=== PATIENT | female | born 2000 | race Caucasian/White ===

== ENCOUNTER 2020-03-02 06:11 | Emergency (ER) | payer OTHER ==
[~2020-03-02] VITALS: Ht 162.6 cm; Wt 70.9 kg
[2020-03-02] MEDS ORDERED: IBUPROFEN 800 MG TAB PO ONE (08:15)
[2020-03-02 08:32] VITALS: BP 124/89
== END 2020-03-02 09:04 | disposition home or self-care (01) ==
LOC: M ED 06:11
DX: M25.511 Pain in right shoulder (principal); M25.571 Pain in right ankle and joints of right foot; M79.601 Pain in right arm

== ENCOUNTER 2020-04-24 07:34 | Emergency (ER) | payer OTHER ==
[~2020-04-24] VITALS: Ht 162.6 cm; Wt 77.2 kg
[2020-04-24] MEDS ORDERED: SUCRALFATE SUSP 1GM/10ML UD PO ONE (08:00)
[2020-04-24] MEDS ORDERED: PANTOPRAZOLE 40MG VIAL (C9113 PER 1) IV ONE (08:00)
[2020-04-24] MEDS ORDERED: NS 1,000 ML IV ONE (08:00)
[2020-04-24] MEDS ORDERED: METOCLOPRAMIDE INJ 10MG/2ML VIAL (J2765 PER 1) IV ONE (08:00)
[2020-04-24 08:55] LABS: BASO % 0.2 % (0.0-1.0); EOS # 0.1 10^3/uL (0.0-0.5); EOS % 0.6 % (0.0-3.0); HEMATOCRIT 40.5 % (36.0-47.0); HEMOGLOBIN 12.9 g/dl (12.0-15.5); LYMPH # 2.6 10^3/uL (1.5-5.0); LYMPH % 31.7 % (24.0-44.0); MEAN CORPUSCULAR HEMOGLOBIN 28.2 pg (27.0-33.0); MEAN CORPUSCULAR HGB CONC 31.9 g/dl (32.0-36.5); MEAN CORPUSCULAR VOLUME 88.4 fl (80.0-96.0); MONO # 0.7 10^3/uL (0.0-0.8); MONO % 8.5 % (0.0-5.0); NEUTROPHILS # 4.8 10^3/uL (1.5-8.5); NEUTROPHILS % 58.8 % (36.0-66.0); PLATELET COUNT, AUTOMATED 257 10^3/uL (150-450); RED BLOOD COUNT 4.58 10^6/uL (4.00-5.40); WHITE BLOOD COUNT 8.2 10^3/uL (4.0-10.0)
[2020-04-24 09:27] LABS: ALBUMIN 3.2 GM/DL (3.2-5.2); ALT/SGPT 18 U/L (12-78); BILIRUBIN,TOTAL 0.3 MG/DL (0.2-1.0); BLOOD UREA NITROGEN 13 MG/DL (7-18); CALCIUM LEVEL 8.5 MG/DL (8.5-10.1); CARBON DIOXIDE LEVEL 27 MEQ/L (21-32); CHLORIDE LEVEL 109 MEQ/L (98-107); CREATININE FOR GFR 0.74 MG/DL (0.55-1.30); GLOMERULAR FILTRATION RATE > 60.0 (>60); GLUCOSE, FASTING 80 MG/DL (70-100); LIPASE 166 U/L (73-393); POTASSIUM SERUM 4.8 MEQ/L (3.5-5.1); SODIUM LEVEL 141 MEQ/L (136-145); TOTAL PROTEIN 6.7 GM/DL (6.4-8.2)
[2020-04-24 10:36] LABS: HCG, SERUM QUALITATIVE POSITIVE (NEGATIVE)
[2020-04-24] MEDS ORDERED: ONDA4TAB6 PO (10:58)
[2020-04-24 11:15] LABS: HCG, SERUM QUANTITATIVE 31 MIU/ML
[2020-04-24 11:18] VITALS: BP 129/69
== END 2020-04-24 11:19 | disposition home or self-care (01) ==
LOC: M ED 07:34
DX: O21.9 Vomiting of pregnancy, unspecified (principal); Z3A.00 Weeks of gestation of pregnancy not specified; Z91.048 Other nonmedicinal substance allergy status; Z91.013 Allergy to seafood
CPT/HCPCS: 36415; 80053; 83690; 84702; 84703; 85025; 96374; 96375; 99284; C9113; J2765

== ENCOUNTER 2020-05-18 09:15 | Emergency (ER) | payer OTHER ==
[~2020-05-18 09:15] MED LIST: ONDA4TAB6 PO
[2020-07-03 10:02] LABS: AMORPHOUS SEDIMENT SMALL (NEGATIVE); APPEARANCE, URINE HAZY (CLEAR); BACTERIA, URINE AUTO 1+ (NEGATIVE); BILIRUBIN, URINE AUTO NEGATIVE (NEGATIVE); BLOOD, URINE BLOOD NEGATIVE (NEGATIVE); COLOR, URINE YELLOW (YELLOW); GLUCOSE, URINE (UA) AUTO NEGATIVE (NEGATIVE); KETONE, URINE AUTO NEGATIVE (NEGATIVE); LEUKOCYTE ESTERASE, URINE AUTO 3+ (NEGATIVE); MUCUS, URINE SMALL (NEGATIVE); NITRITE, URINE AUTO NEGATIVE (NEGATIVE); PROTEIN, URINE AUTO NEGATIVE (NEGATIVE); RBC, URINE AUTO 2 /HPF (0-3); SPECIFIC GRAVITY URINE AUTO 1.026 (1.002-1.035); SQUAMOUS EPITHELIAL CELL UR AU 6 /HPF (0-6); UROBILINOGEN, URINE AUTO 0.2 mg/dL (0.0-2.0); WBC, URINE AUTO 2 /HPF (0-3)
== END 2020-05-18 11:25 | disposition home or self-care (01) ==
LOC: M ED 09:15
DX: O26.891 Other specified pregnancy related conditions, first trimester (principal); N83.11 Corpus luteum cyst of right ovary; Z91.013 Allergy to seafood; Z79.899 Other long term (current) drug therapy; Z3A.01 Less than 8 weeks gestation of pregnancy

== ENCOUNTER → 2020-07-21 | Outpatient (CLI) | payer OTHER ==
[2020-07-23 17:07] LABS: F003-IGE CODFISH <0.10 kU/L (Class 0); F023-IGE CRAB <0.10 kU/L (Class 0); F024-IGE SHRIMP <0.10 kU/L (Class 0); F040-IGE TUNA <0.10 kU/L (Class 0); F207-IGE CLAM <0.10 kU/L (Class 0); F303-IGE HALIBUT <0.10 kU/L (Class 0)
== END ==
LOC: M LAB 14:09
PROVIDERS: ATTEND Nurse Practitioner Family
DX: Z13.89 Encounter for screening for other disorder (principal)

== ENCOUNTER → 2020-08-13 | Outpatient (CLI) | payer OTHER ==
--- NOTE | 2020-08-13 13:58 | REP ---
INDICATION: PREG LEVEL II ANATOMY MAIN REG. COMPARISON: 05/18/2020. TECHNIQUE: Real-time sonographic evaluation of the gravid uterus performed. FINDINGS: Estimated gestational age is19 weeks 3 days, EDC 01/04/2021. Today's measurements indicate appropriate growth. Presentation: Footling breech Placenta posterior, grade 1, without evidence of placenta previa. heart rate is recorded at 156 beats per minute. Amniotic fluid is subjectively normal. Closed cervical length is measured at 4.5 cm. Biometry chart: BPD: 42 mm, 18 weeks 6 days, 35th percentile. HC: 162 mm, 19 weeks 0 days, 38th percentile AC: 137 mm, 19 weeks in 1 days, 44th percentile Femur length: 31 mm, 19 weeks 4 days, 54th percentile HC to AC ratio: 1.18, normal range 1.06-1.25. Estimated weight: 284g. anatomy: Cranium: Grossly normal Lateral Ventricles/Choroid Plexus: Grossly normal Posterior Fossa/Cerebellum: Grossly normal Nose/lips/profile: Not well visualized. Four chamber heart: Not well visualized. Right ventricular outflow tract: Not well visualized. Left ventricular outflow tract: Not well visualized. Left-sided stomach: Grossly normal Kidneys: Grossly normal Bladder: Grossly normal Cord Insertion: Grossly normal 3 vessel cord: Grossly normal Spine: Grossly normal IMPRESSION: Viable single intrauterine gestation as above. <Electronically signed by Alfa Ogden > 08/13/20 [id number]
== END ==
LOC: M RAD 10:24
PROVIDERS: ATTEND Obstetrics & Gynecology
DX: Z34.82 Encounter for supervision of other normal pregnancy, second trimester (principal)

== ENCOUNTER 2020-09-07 17:17 | Emergency (ER) | payer OTHER ==
[~2020-09-07] VITALS: Ht 162.6 cm; Wt 78.0 kg
[2020-09-07] MEDS ORDERED: PRENMIS3 PO (17:26)
--- NOTE | 2020-09-07 18:35 | REP ---
INDICATION: inversion yesterday, pain lateral, preg pls shield COMPARISON: None. TECHNIQUE: AP, lateral views of the left ankle FINDINGS: Mild swelling suggested. No acute fracture or dislocation. Ankle mortise intact. IMPRESSION: Mild swelling. No acute fracture or dislocation. <Electronically signed by Mo Salazar > 09/07/20 [id number]
[2020-09-07 18:44] VITALS: BP 130/68
== END 2020-09-07 18:50 | disposition home or self-care (01) ==
LOC: M ED 17:17
DX: O9A.219 Injury, poisoning and certain other consequences of external causes complicating pregnancy, unspecified trimester (principal); S93.402A Sprain of unspecified ligament of left ankle, initial encounter; X50.0XXA Overexertion from strenuous movement or load, initial encounter; Y92.019 Unspecified place in single-family (private) house as the place of occurrence of the external cause; Y93.9 Activity, unspecified; Y99.9 Unspecified external cause status; Z3A.00 Weeks of gestation of pregnancy not specified; Z91.013 Allergy to seafood; Z79.899 Other long term (current) drug therapy

== ENCOUNTER → 2020-09-09 | Outpatient (CLI) | payer OTHER ==
[~2020-09-09] MED LIST changes: +PRENMIS3 PO
--- NOTE | 2020-09-11 07:10 | REP ---
INDICATION: F/U ANATOMY COMPARISON: 08/13/2020 TECHNIQUE: Transabdominal obstetrical ultrasound with color Doppler evaluation. FINDINGS: Examination demonstrates a single live intrauterine in cephalic presentation. motion is identified by technologist. Placenta is noted posterior and grade 1 without evidence for placenta previa or abruption. Amniotic fluid volume is normal. Cervix measures 4.3 cm in length and appears closed.. Gestational age by LMP 23 weeks 2 days with DALTON 01/04/2021. Gestational age by current measurements 23 weeks 5 days with DALTON 01/01/2021. FHR equals 152 beats per minute. Estimated weight 611 grams (53rdpercentile). Anatomical assessment demonstrates normal structures including cranium, choroid plexus, cavum, cerebellum/posterior fossa, facial features, lungs, four-chamber heart/ventricular outflow tracts, diaphragm, stomach, cord insertion/three-vessel cord, kidneys/bladder, spine, and extremities. IMPRESSION: Single live intrauterine in cephalic presentation demonstrating appropriate estimated weight and growth. Anatomical assessment is complete and normal. <Electronically signed by Mo Salazar > 09/11/20 [id number]
== END ==
LOC: M RAD 11:38
PROVIDERS: ATTEND Obstetrics & Gynecology
DX: Z34.82 Encounter for supervision of other normal pregnancy, second trimester (principal)

== ENCOUNTER → 2020-10-06 | Outpatient (REF) | payer OTHER ==
[2020-10-06 17:34] LABS: BASO % 0.2 % (0.0-1.0); EOS # 0.1 10^3/uL (0.0-0.5); EOS % 0.4 % (0.0-3.0); HEMATOCRIT 36.9 % (36.0-47.0); HEMOGLOBIN 11.5 g/dl (12.0-15.5); LYMPH # 2.3 10^3/uL (1.5-5.0); LYMPH % 17.2 % (24.0-44.0); MEAN CORPUSCULAR HEMOGLOBIN 29.4 pg (27.0-33.0); MEAN CORPUSCULAR HGB CONC 31.2 g/dl (32.0-36.5); MEAN CORPUSCULAR VOLUME 94.4 fl (80.0-96.0); MONO % 7.3 % (0.0-5.0); NEUTROPHILS # 9.9 10^3/uL (1.5-8.5); NEUTROPHILS % 74.2 % (36.0-66.0); PLATELET COUNT, AUTOMATED 236 10^3/uL (150-450); RED BLOOD COUNT 3.91 10^6/uL (4.00-5.40); WHITE BLOOD COUNT 13.3 10^3/uL (4.0-10.0)
[2020-10-06 18:08] LABS: ALBUMIN 2.5 GM/DL (3.2-5.2); ALT/SGPT 12 U/L (12-78); BILIRUBIN,TOTAL 0.3 MG/DL (0.2-1.0); BLOOD UREA NITROGEN 7 MG/DL (7-18); CALCIUM LEVEL 8.6 MG/DL (8.5-10.1); CARBON DIOXIDE LEVEL 27 MEQ/L (21-32); CHLORIDE LEVEL 106 MEQ/L (98-107); CREATININE FOR GFR 0.57 MG/DL (0.55-1.30); GLOMERULAR FILTRATION RATE > 60.0 (>60); GLUCOSE, FASTING 104 MG/DL (70-100); POTASSIUM SERUM 4.1 MEQ/L (3.5-5.1); SODIUM LEVEL 139 MEQ/L (136-145); THYROID STIMULATING HORMONE 0.921 uIU/ML (0.358-3.740); TOTAL PROTEIN 6.3 GM/DL (6.4-8.2)
== END ==
LOC: M LAB REF 16:36
PROVIDERS: ATTEND Physician Assistant
DX: R42 Dizziness and giddiness (principal)

== ENCOUNTER → 2020-10-14 | Outpatient (CLI) | payer OTHER ==
[2020-10-14 11:06] LABS: HEMATOCRIT 36.7 % (36.0-47.0); HEMOGLOBIN 11.7 g/dl (12.0-15.5); MEAN CORPUSCULAR HEMOGLOBIN 30.1 pg (27.0-33.0); MEAN CORPUSCULAR HGB CONC 31.9 g/dl (32.0-36.5); MEAN CORPUSCULAR VOLUME 94.3 fl (80.0-96.0); PLATELET COUNT, AUTOMATED 221 10^3/uL (150-450); RED BLOOD COUNT 3.89 10^6/uL (4.00-5.40)
== END ==
LOC: M LAB 09:13
PROVIDERS: ATTEND Obstetrics & Gynecology
DX: Z34.82 Encounter for supervision of other normal pregnancy, second trimester (principal); Z3A.00 Weeks of gestation of pregnancy not specified

== ENCOUNTER → 2020-10-21 | Outpatient (REF) | payer OTHER ==
[2020-10-21 17:46] LABS: BASO % 0.2 % (0.0-1.0); EOS # 0.1 10^3/uL (0.0-0.5); EOS % 0.4 % (0.0-3.0); HEMATOCRIT 36.1 % (36.0-47.0); HEMOGLOBIN 11.7 g/dl (12.0-15.5); LYMPH # 2.5 10^3/uL (1.5-5.0); LYMPH % 17.1 % (24.0-44.0); MEAN CORPUSCULAR HEMOGLOBIN 30.5 pg (27.0-33.0); MEAN CORPUSCULAR HGB CONC 32.4 g/dl (32.0-36.5); MONO # 1.2 10^3/uL (0.0-0.8); MONO % 8.4 % (0.0-5.0); NEUTROPHILS # 10.7 10^3/uL (1.5-8.5); NEUTROPHILS % 72.9 % (36.0-66.0); PLATELET COUNT, AUTOMATED 225 10^3/uL (150-450); RED BLOOD COUNT 3.84 10^6/uL (4.00-5.40); WHITE BLOOD COUNT 14.7 10^3/uL (4.0-10.0)
[2020-10-21 18:10] LABS: PERCENT SATURATION 21.1 % (13.2-45.0)
== END ==
LOC: M LAB REF 16:22
PROVIDERS: ATTEND Physician Assistant
DX: D64.9 Anemia, unspecified (principal)

== ENCOUNTER 2020-11-08 10:01 | Emergency (ER) | payer OTHER ==
[~2020-11-08] VITALS: Ht 162.6 cm; Wt 86.4 kg
[2020-11-08 10:02] VITALS: BP 130/59
--- OUTSIDE RECORDS SUMMARY | 2020-11-08 10:08 | CCD ---
Author Organization Unknown Address [address] [place] [address] Phone [phone] Care Team Providers Care Apartment Hotel Manager Name Role Phone [facility] 110 [phone] Allergies Code Code System Name Reaction Severity Status Onset Fish Containing Products Active Shellfish Derived Active Medications Name Status Start Date Stop Date paroxetine 20 mg tablet Completed 08/25/20 20 Vitamins Active Not available Vitamin B-6 25 mg tablet Completed 020 Problems Name Status Onset Date Source Depressive Disorder Active 08/25/2020 Allergic Rhinitis Active 08/25/2020 Procedures Notes: Removal of cyst from L breast () Results Lab Results Date Name Specimen Result Interpretation Description Value Range Status Address 10/06/2020 CMP, Serum or Plasma High Glucose, Fastin g 104 mg/dL 70-100 mg/dL [facility]: 83 0 [facility] Normal Blood Urea Nitrogen 7 mg/dL 7-18 mg/ dL [facility]: 830 [facility] Normal Creatinine for GFR 0.57 mg/dL 0.55-1 .30 mg/dL [facility]: 830 [facility] Normal Glomerular Filtration Rate > 60.0 >6 0 [facility]: 830 [facility] Normal Sodium Level 139 mEq/L 136-145 mEq/L [facility]: 830 [facility] Normal Potassium Serum 4.1 mEq/L 3.5-5.1 mE q/L [facility]: 830 [facility] Normal Chloride Level 106 mEq/L 98-107 mEq/ L [facility]: 830 [facility] Normal Carbon Dioxide Level 27 mEq/L 21-32 mEq/L [facility]: 830 [facility] Low Anion Gap 6 mEq/L 8-16 mEq/L [facility]: 830 [facility] Normal Calcium Level 8.6 mg/dL 8.5-10.1 mg/ dL [facility]: 0 [facility] Low AST/SGOT 4 U/L 7-37 U/L [facility]: 830 [facility] Normal ALT/SGPT 12 U/L 12-78 U/L [facility]: 830 [facility] Normal Alkaline Phosphatase 76 U/L 45-117 U /L [facility]: 830 [facility] Normal Bilirubin,total 0.3 mg/dL 0.2-1.0 mg /dL [facility]: [address] [place] [address] Low Total Protein 6.3 gm/dL 6.4-8.2 gm/d L [facility]: [address] [place] [address] Low Albumin 2.5 gm/dL 3.2-5.2 gm/dL [facility] 0 [facility] Low Albumin/globulin Ratio 0.7 1.2-2. 2 [facility]: 0 [facility] 10/06/2020 TSH, Serum or Plasma Normal Thyroid Stimulating Hormone 0.921 uIU/mL 0.358-3.740 uIU/mL [facility] nter: 830 [facility] Past Encounters 10/13/2020 Megan Colon, STAFF COMMAND AND CONTROL OFFICER-R: [address] [place] [phone], Ph. 10/06/2020 Adult Health Examination; Dizziness; Gina Chris PA-C: [address] [place] [phone], Ph. 08/25/2020 Depressive Disorder; Generalized Anxiety Disorder; Anaphylaxis Due to Shellfish Gina Chris PA-C: [address] [place] [address], Ph. Social History Tobacco Smoking Status Never Smoker Vaccine List None recorded. Plan of Care Reminders Provider Appointments None recorded. Lab None recorded. Referral None recorded. Procedures None recorded. Surgeries None recorded. Imaging None recorded. Vitals 10/06/2020 01:00PM ANNUAL EXAM Height Weight BMI Blood Pressure 64 in 183 lbs 6 oz 31.5 kg/m2 111/58 mm[Hg] 08/25/2020 09:00AM NEW PATIENT EXAM Height Weight BMI Blood Pressure 64 in 165 lbs 16 oz 28.5 kg/m2 99/68 mm[Hg]
--- OUTSIDE RECORDS SUMMARY | 2020-11-08 10:08 | CCD ---
Author Organization Unknown Address [address] [place] [address] Phone [phone] Care Team Providers Care Single Stayer Operator Name Role Phone [facility] 110 [phone] Allergies Code Code System Name Reaction Severity [...] Result Interpretation Description Value Range Status Address 10/21/2020 CBC W/ Auto Diff Blood venous High White Blood C ount 14.7 10 4.0-10.0 10 [facility]: 83 0 [facility] Blood venous Low Red Blood Count 3.84 10 4.00- 5.40 10 [facility]: 830 [facility] Blood venous Low Hemoglobin 11.7 g/dL 12.0-15. 5 g/dL [facility]: 830 [facility] Blood venous Normal Hematocrit 36.1 % 36.0-47.0 % [facility]: 830 [facility] Blood venous Normal Mean Corpuscular Volume 94.0 fL 80.0-96.0 fL [facility]: 830 [facility] Blood venous Normal Mean Corpuscular Hemoglob in 30.5 pg 27.0-33.0 pg [facility]: 830 [facility] Blood venous Normal Mean Corpuscular HGB Conc 32.4 g/dL 32.0-36.5 g/dL [facility]: 830 [facility] Blood venous Normal Red Cell Distribution Wid th 13.4 % 11.5-14.5 % [facility]: [address] [place] [address] Blood venous Normal Platelet Count, Automated 225 10 150-450 10 [facility]: [address] [place] [address] Blood venous High Neutrophils % 72.9 % 36.0-66. 0 % [facility]: [address] [place] [address] Blood venous Low Lymph % 17.1 % 24.0-44.0 % [facility]: [address] [place] [address] Blood venous High [place] % 8.4 % 0.0-5.0 % [facility]: [address] [place] [address] Blood venous Normal Eos % 0.4 % 0.0-3.0 % [facility]: [address] [place] [address] Blood venous Normal Baso % 0.2 % 0.0-1.0 % [facility]: [address] [place] [address] Blood venous Normal Immature Granulocyte % 1.0 % 0-3.0 % [facility]: [address] [place] [address] Blood venous Normal Nucleated Red Blood Cell % 0. 0 % 0-0 % [facility]: [address] [place] [address] Blood venous High Neutrophils # 10.7 10 1.5-8.5 10 [facility]: [address] [place] [address] Blood venous Normal Lymph # 2.5 10 1.5-5.0 10 [facility]: [address] [place] [address] Blood venous High [place] # 1.2 10 0.0-0.8 10 [facility]: [address] [place] [address] Blood venous Normal Eos # 0.1 10 0.0-0.5 10 [facility]: [address] [place] [address] Blood venous Normal Baso # 0.0 10 0.0-0.2 10 [facility]: [address] [place] [address] 10/21/2020 TIBC (Total Iron-binding Capacity), Serum Blood venous No rmal Iron (Fe) 102 ug/dL 50-170 ug/dL [facility]: 830 [facility] Blood venous High Total Iron Binding Capaci ty 483 ug/dL 250-450 ug/dL [facility]: 830 [facility] Blood venous Normal Percent Saturation 21.1 % 13. 2-45.0 % [facility]: 830 [facility] 10/21/2020 Ferritin, Serum or Plasma Blood venous Normal Ferr itin 13 NG/mL 8-252 NG/mL [facility]: 83 0 [facility] 10/21/2020 Hemoglobin a1C, Fingerstick Hba1C [facility]: 238 [facility] 10/06/2020 CBC W/ Auto Diff High White Blood Count 13.3 10 4.0-10.0 10 [facility]: 830 [facility] Low Red Blood Count 3.91 10 4.00-5.40 10 [facility]: 830 [facility] Low Hemoglobin 11.5 g/dL 12.0-15.5 g/dL [facility]: 830 [facility] Normal Hematocrit 36.9 % 36.0-47.0 % [facility]: 830 [facility] Normal Mean Corpuscular Volume 94.4 fL 80.0 -96.0 fL [facility]: 830 [facility] Normal Mean Corpuscular Hemoglobin 29.4 pg 27.0-33.0 pg [facility]: 830 [facility] Low Mean Corpuscular HGB Conc 31.2 g/dL 32.0-36.5 g/dL [facility]: 830 [facility] Normal Red Cell Distribution Width 13.2 % 1 1.5-14.5 % [facility]: 830 [facility] Normal Platelet Count, Automated 236 10 150 -450 10 [facility]: 830 [facility] High Neutrophils % 74.2 % 36.0-66.0 % [facility]: 830 [facility] Low Lymph % 17.2 % 24.0-44.0 % Final [facility]: 830 [facility] High [place] % 7.3 % 0.0-5.0 % Final [facility]: 830 [facility] Normal Eos % 0.4 % 0.0-3.0 % [facility]: 830 [facility] Normal Baso % 0.2 % 0.0-1.0 % [facility]: 830 [facility] Normal Immature Granulocyte % 0.7 % 0-3.0 % [facility]: 830 [facility] Normal Nucleated Red Blood Cell % 0.0 % 0- 0 % [facility]: 0 [facility] High Neutrophils # 9.9 10 1.5-8.5 10 [facility]: 830 [facility] Normal Lymph # 2.3 10 1.5-5.0 10 [facility]: 830 [facility] High [place] # 1.0 10 0.0-0.8 10 [facility]: 830 [facility] Normal Eos # 0.1 10 0.0-0.5 10 [facility]: 830 [facility] Normal Baso # 0.0 10 0.0-0.2 10 [facility]: 0 [facility] 10/06/2020 CMP, Serum or Plasma High Glucose, Fastin g 104 mg/dL 70-100 mg/dL [facility]: 83 0 [facility] Normal Blood Urea Nitrogen 7 mg/dL 7-18 mg/ dL [facility]: 0 [facility] Normal Creatinine for GFR 0.57 mg/dL 0.55-1 .30 mg/dL [facility]: 830 [facility] Normal Glomerular Filtration Rate > 60.0 >6 0 [facility]: 830 [facility] Normal Sodium Level 139 mEq/L 136-145 mEq/L [facility]: [address] [place] [address] Normal Potassium Serum 4.1 mEq/L 3.5-5.1 mE q/L [facility]: [address] [place] [address] Normal Chloride Level 106 mEq/L 98-107 mEq/ L [facility]: [address] [place] [address] Normal Carbon Dioxide Level 27 mEq/L 21-32 mEq/L [facility]: [address] [place] [address] Low Anion Gap 6 mEq/L 8-16 mEq/L [facility]: [address] [place] [address] Normal Calcium Level 8.6 mg/dL 8.5-10.1 mg/ dL [facility]: [address] [place] [address] Low AST/SGOT 4 U/L 7-37 U/L [facility]: [address] [place] [address] Normal ALT/SGPT 12 U/L 12-78 U/L [facility]: [address] [place] [address] Normal Alkaline Phosphatase 76 U/L 45-117 U /L [facility]: [address] [place] [address] Normal Bilirubin,total 0.3 mg/dL 0.2-1.0 mg /dL [facility]: [address] [place] [address] Low Total Protein 6.3 gm/dL 6.4-8.2 gm/d L [facility]: [address] [place] [address] Low Albumin 2.5 gm/dL 3.2-5.2 gm/dL Lynda l [facility]: [address] [place] [address] Low Albumin/globulin Ratio 0.7 1.2-2. 2 [facility]: [address] [place] [address] 10/06/2020 TSH, Serum or Plasma Normal Thyroid Stimulating Hormone 0.921 uIU/mL 0.358-3.740 uIU/mL [facility] nter: [address] [place] [address] Past Encounters 10/22/2020 Depressive Disorder Megan Colon, [facility]-R: [address] [place] [address], [facility] [address], [place] [phone], Ph. 10/21/2020 Adrian Larkin MD: [address] [place] [phone], Ph. 10/13/2020 Megan Colon LCSW-R: [address] [place] [phone], Ph. 10/06/2020 Adult Health Examination; Dizziness; Gina Chris PA-C: [address] [place] [phone], Ph. 08/25/2020 Depressive Disorder; Generalized Anxiety Disorder; Anaphylaxis Due to Shellfish Gina Chris PA-C: [address] [place] [phone], Ph. Social History Tobacco Smoking Status Never [...]
--- OUTSIDE RECORDS SUMMARY | 2020-11-08 10:08 | CCD ---
Author Organization Unknown Address [address] [place] [address] Phone [phone] Care Team Providers Care Physical Optics Teacher Name Role Phone [facility] 110 [phone] Allergies Code Code System Name Reaction Severity Status Onset Fish Containing Products Active Shellfish Derived Active Medications Name Status Start Date Stop Date paroxetine 20 mg tablet Completed 08/25/20 20 Vitamins Active Not available Vitamin B-6 25 mg tablet Active Not laura ilable Problems Name Status Onset Date Source Depressive Disorder Active 08/25/2020 Allergic Rhinitis Active 08/25/2020 Procedures Notes: Removal of cyst from L breast () Results Lab Results None recorded. Past Encounters 08/25/2020 Depressive Disorder; Generalized Anxiety Disorder; Anaphylaxis Due to Shellfish GinaMARTINE DollC: [address] [place] [phone], Ph. Social History Tobacco Smoking Status Never Smoker Notes: Pt smoked for approx one month. Pt reports barely smoking, even then (less than 1 cig/day). Vaccine List None recorded. Plan of Care Reminders Provider Appointments None recorded. Lab None recorded. Referral None recorded. Procedures None recorded. Surgeries None recorded. Imaging None recorded. Vitals Height Weight BMI Blood Pressure 64 in 165 lbs 16 oz 28.5 kg/m2 99/68 mm[Hg]
--- OUTSIDE RECORDS SUMMARY | 2020-11-08 10:08 | CCD ---
Author Organization Unknown Address [address] [place] [address] Phone [phone] Care Team Providers Care Rubber Belt Splicer Name Role Phone [facility] 110 [phone] Allergies Code Code System Name Reaction Severity Status Onset Fish Containing Products Active Shellfish Derived Active Medications Name Status Start Date Stop Date paroxetine 20 mg tablet Completed 08/25/20 20 Vitamins Active Not available Vitamin B-6 25 mg tablet Completed 020 Problems Name Status Onset Date Source Depressive Disorder Active 08/25/2020 Allergic Rhinitis Active 08/25/2020 Procedures Notes: Removal of cyst from L breast ( 14) Results Lab Results Date Name Specimen Result Interpretation Description Value Range Status Address 10/06/2020 CBC W/ Auto Diff High White Blood Count 13.3 10 4.0-10.0 10 [facility]: [address] [place] [address] Low Red Blood Count 3.91 10 4.00-5.40 10 [facility]: [address] [place] [address] Low Hemoglobin 11.5 g/dL 12.0-15.5 g/dL [facility]: [address] [place] [address] Normal Hematocrit 36.9 % 36.0-47.0 % [facility]: [address] [place] [address] Normal Mean Corpuscular Volume 94.4 fL 80.0 -96.0 fL [facility]: [address] [place] [address] Normal Mean Corpuscular Hemoglobin 29.4 pg 27.0-33.0 pg [facility]: [address] [place] [address] Low Mean Corpuscular HGB Conc 31.2 g/dL 32.0-36.5 g/dL [facility]: [address] [place] [address] Normal Red Cell Distribution Width 13.2 % 1 1.5-14.5 % [facility]: 830 [facility] Normal Platelet Count, Automated 236 10 150 -450 10 [facility]: 830 [facility] High Neutrophils % 74.2 % 36.0-66.0 % [facility]: 830 [facility] Low Lymph % 17.2 % 24.0-44.0 % [facility]: 830 [facility] High [place] % 7.3 % 0.0-5.0 % Final [facility]: 830 [facility] Normal Eos % 0.4 % 0.0-3.0 % [facility]: 830 [facility] Normal Baso % 0.2 % 0.0-1.0 % [facility]: 830 [facility] Normal Immature Granulocyte % 0.7 % 0-3.0 % [facility]: 830 [facility] Normal Nucleated Red Blood Cell % 0.0 % 0- 0 % [facility]: 830 [facility] High Neutrophils # 9.9 10 1.5-8.5 10 [facility]: 830 [facility] Normal Lymph # 2.3 10 1.5-5.0 10 [facility]: 830 [facility] High [place] # 1.0 10 0.0-0.8 10 [facility]: 830 [facility] Normal Eos # 0.1 10 0.0-0.5 10 [facility]: 830 [facility] Normal Baso # 0.0 10 0.0-0.2 10 [facility]: 830 [facility] 10/06/2020 CMP, Serum or Plasma High Glucose, Fastin g 104 mg/dL 70-100 mg/dL [facility]: 83 0 [facility] Normal Blood Urea Nitrogen 7 mg/dL 7-18 mg/ dL [facility]: 830 [facility] Normal Creatinine for GFR 0.57 mg/dL 0.55-1 .30 mg/dL [facility]: 0 [facility] Normal Glomerular Filtration Rate > 60.0 >6 0 [facility]: 830 [facility] Normal Sodium Level 139 mEq/L 136-145 mEq/L [facility]: 830 [facility] Normal Potassium Serum 4.1 mEq/L 3.5-5.1 mE q/L [facility]: 830 [facility] Normal Chloride Level 106 mEq/L 98-107 mEq/ L [facility]: [address] [place] [address] Normal Carbon Dioxide Level 27 mEq/L 21-32 mEq/L [facility]: [address] [place] [address] Low Anion Gap 6 mEq/L 8-16 mEq/L [facility]: [address] [place] [address] Normal Calcium Level 8.6 mg/dL 8.5-10.1 mg/ dL [facility]: 830 [facility] Low AST/SGOT 4 U/L 7-37 U/L [facility]: 830 [facility] Normal ALT/SGPT 12 U/L 12-78 U/L [facility]: 0 [facility] Normal Alkaline Phosphatase 76 U/L 45-117 U /L [facility]: 0 [facility] Normal Bilirubin,total 0.3 mg/dL 0.2-1.0 mg /dL [facility]: 0 [facility] Low Total Protein 6.3 gm/dL 6.4-8.2 gm/d L [facility]: 0 [facility] Low Albumin 2.5 gm/dL 3.2-5.2 gm/dL [facility] 0 [facility] Low Albumin/globulin Ratio 0.7 1.2-2. 2 [facility]: [address] [place] [address] 10/06/2020 TSH, Serum or Plasma Normal Thyroid Stimulating Hormone 0.921 uIU/mL 0.358-3.740 uIU/mL Final [facility] Ce nter: 830 [facility] Past Encounters 10/21/2020 Adrian Larkin MD: [address] [place] [phone], Ph. 10/13/2020 ANGELA GrahamW-R: [address] [place] [phone], Ph. 10/06/2020 Adult Health Examination; Dizziness; Gina Chris PA-C: [address] [place] [phone], Ph. 08/25/2020 Depressive Disorder; Generalized Anxiety Disorder; Anaphylaxis Due to Shellfish Gina Chris PA-C: [address] [place] [phone], Ph. Social History Tobacco Smoking Status Never [...]
--- OUTSIDE RECORDS SUMMARY | 2020-11-08 10:08 | CCD ---
Author Organization Unknown Address [address] [place] [address] Phone [phone] Care Team Providers Care Broadloom Weaver Name Role Phone [facility] 110 [phone] Allergies Code Code System Name Reaction Severity [...] Blood C ount 14.7 10 4.0-10.0 10 [facility]: 83 0 [facility] Blood venous Low Red Blood Count 3.84 10 4.00- 5.40 10 [facility]: 830 [facility] Blood venous Low Hemoglobin 11.7 g/dL 12.0-15. 5 g/dL [facility]: 830 [facility] Blood venous Normal Hematocrit 36.1 % 36.0-47.0 % [facility]: 830 [facility] Blood venous Normal Mean Corpuscular Volume 94.0 fL 80.0-96.0 fL [facility]: 830 [facility] Blood venous Normal Mean Corpuscular Hemoglob in 30.5 pg 27.0-33.0 pg [facility]: 830 [facility] Blood venous Normal Mean Corpuscular HGB Conc 32.4 g/dL 32.0-36.5 g/dL [facility]: 830 [facility] Blood venous Normal Red Cell Distribution Wid th 13.4 % 11.5-14.5 % [facility]: [address] [place] [address] Blood venous Normal Platelet Count, Automated 225 10 150-450 10 [facility]: [address] [place] [address] Blood venous High Neutrophils % 72.9 % 36.0-66. 0 % [facility]: [address] [place] [address] Blood venous Low Lymph % 17.1 % 24.0-44.0 % [facility]: [address] [place] [address] Blood venous High [place] % 8.4 % 0.0-5.0 % [facility]: [address] [place] [address] Blood venous Normal Eos % 0.4 % 0.0-3.0 % [facility]: [address] [place] [address] Blood venous Normal Baso % 0.2 % 0.0-1.0 % [facility]: [address] [place] [address] Blood venous Normal Immature Granulocyte % 1.0 % 0-3.0 % [facility]: [address] [place] [address] Blood venous Normal Nucleated Red Blood Cell % 0. 0 % 0-0 % [facility]: [address] [place] [address] Blood venous High Neutrophils # 10.7 10 1.5-8.5 10 [facility]: [address] [place] [address] Blood venous Normal Lymph # 2.5 10 1.5-5.0 10 [facility]: [address] [place] [address] Blood venous High [place] # 1.2 10 0.0-0.8 10 [facility]: [address] [place] [address] Blood venous Normal Eos # 0.1 10 0.0-0.5 10 [facility]: [address] [place] [address] Blood venous Normal Baso # 0.0 10 0.0-0.2 10 [facility]: [address] [place] [address] 10/21/2020 TIBC (Total Iron-binding Capacity), Serum Blood venous No rmal Iron (Fe) 102 ug/dL 50-170 ug/dL [facility]: [address] [facility] Blood venous High Total Iron Binding Capaci ty 483 ug/dL 250-450 ug/dL [facility]: 8[address] [facility] Blood venous Normal Percent Saturation 21.1 % 13. 2-45.0 % [facility]: 8[address] [facility] 10/21/2020 Ferritin, Serum or Plasma Blood venous Normal Ferr itin 13 NG/mL 8-252 NG/mL [facility]: 83 0 [facility] 10/21/2020 Hemoglobin a1C, Fingerstick Hba1C [facility]: [address] [facility] 10/06/2020 CBC W/ Auto Diff High White Blood Count 13.3 10 4.0-10.0 10 [facility]: [address] [facility] Low Red Blood Count 3.91 10 4.00-5.40 10 [facility]: [address] [facility] Low Hemoglobin 11.5 g/dL 12.0-15.5 g/dL [facility]: [address] [facility] Normal Hematocrit 36.9 % 36.0-47.0 % [facility]: 8[address] [facility] Normal Mean Corpuscular Volume 94.4 fL 80.0 -96.0 fL [facility]: 8[address] [facility] Normal Mean Corpuscular Hemoglobin 29.4 pg 27.0-33.0 pg [facility]: 8[address] [facility] Low Mean Corpuscular HGB Conc 31.2 g/dL 32.0-36.5 g/dL [facility]: [address] [facility] Normal Red Cell Distribution Width 13.2 % 1 1.5-14.5 % [facility]: [address] [facility] Normal Platelet Count, Automated 236 10 150 -450 10 [facility]: [address] [facility] High Neutrophils % 74.2 % 36.0-66.0 % [facility]: [address] [facility] Low Lymph % 17.2 % 24.0-44.0 % [facility]: [address] [facility] High [place] % 7.3 % 0.0-5.0 % [facility]: [address] [facility] Normal Eos % 0.4 % 0.0-3.0 % [facility]: [address] [facility] Normal Baso % 0.2 % 0.0-1.0 % [facility]: [address] [facility] Normal Immature Granulocyte % 0.7 % 0-3.0 % [facility]: 8[address] [facility] Normal Nucleated Red Blood Cell % 0.0 % 0- 0 % [facility]: 0 [facility] High Neutrophils # 9.9 10 1.5-8.5 10 [facility]: [address] [facility] Normal Lymph # 2.3 10 1.5-5.0 10 [facility]: [address] [facility] High [place] # 1.0 10 0.0-0.8 10 [facility]: [address] [facility] Normal Eos # 0.1 10 0.0-0.5 10 [facility]: [address] [facility] Normal Baso # 0.0 10 0.0-0.2 10 [facility]: 0 [facility] 10/06/2020 CMP, Serum or Plasma High Glucose, Fastin g 104 mg/dL 70-100 mg/dL [facility]: 83 0 [facility] Normal Blood Urea Nitrogen 7 mg/dL 7-18 mg/ dL [facility]: 0 [facility] Normal Creatinine for GFR 0.57 mg/dL 0.55-1 .30 mg/dL [facility]: [address] [facility] Normal Glomerular Filtration Rate > 60.0 >6 0 [facility]: [address] [facility] Normal Sodium Level 139 mEq/L 136-145 mEq/L [facility]: [address] [place] [address] Normal Potassium Serum 4.1 mEq/L 3.5-5.1 mE q/L [facility]: [address] [place] [address] Normal Chloride Level 106 mEq/L 98-107 mEq/ L [facility]: [address] [place] [address] Normal Carbon Dioxide Level 27 mEq/L 21-32 mEq/L [facility]: [address] [place] [address] Low Anion Gap 6 mEq/L 8-16 mEq/L [facility]: [address] [place] [address] Normal Calcium Level 8.6 mg/dL 8.5-10.1 mg/ dL [facility]: [address] [place] [address] Low AST/SGOT 4 U/L 7-37 U/L [facility]: [address] [place] [address] Normal ALT/SGPT 12 U/L 12-78 U/L [facility]: [address] [place] [address] Normal Alkaline Phosphatase 76 U/L 45-117 U /L [facility]: [address] [place] [address] Normal Bilirubin,total 0.3 mg/dL 0.2-1.0 mg /dL [facility]: [address] [place] [address] Low Total Protein 6.3 gm/dL 6.4-8.2 gm/d L [facility]: [address] [place] [address] Low Albumin 2.5 gm/dL 3.2-5.2 gm/dL Lynda l [facility]: [address] [place] [address] Low Albumin/globulin Ratio 0.7 1.2-2. 2 [facility]: [address] [place] [address] 10/06/2020 TSH, Serum or Plasma Normal Thyroid Stimulating Hormone 0.921 uIU/mL 0.358-3.740 uIU/mL [facility] nter: [address] [place] [address] Past Encounters 11/05/2020 Depressive Disorder Megan Colon, [facility]-R: [address] [place] [address], [facility] [address], [place] [address], Ph. 10/22/2020 Depressive Disorder ANGELA GrahamW-R: [address] [facility], [place] [address], Ph. 10/21/2020 Adrian Larkin MD: [address] [place] [address], Ph. 10/13/2020 Megan Colon LCSW-R: [address] [place] [address], Ph. 10/06/2020 Adult Health Examination; Dizziness; Gina Chris PA-C: [address] [place] [address], Ph. 08/25/2020 Depressive Disorder; Generalized Anxiety Disorder; Anaphylaxis Due to Shellfish Gina Chris PA-C: [address] [place] [address], Ph. Social History Tobacco Smoking Status Never [...]
--- OUTSIDE RECORDS SUMMARY | 2020-11-08 10:08 | CCD ---
Author Organization Unknown Address [address] [place] [address] Phone [phone] Care Team Providers Care Milking Machine Technician Name Role Phone [facility] 110 [phone] Allergies Code Code System Name Reaction Severity [...] Results Lab Results None recorded. Past Encounters 10/06/2020 Adult Health Examination; Dizziness; Gina Chris PA-C: [address] [place] [address], Ph. 08/25/2020 Depressive Disorder; Generalized Anxiety Disorder; Anaphylaxis Due to Shellfish Gina Chris PA-C: [address] [place] [address], Ph. Social History Tobacco Smoking Status Never [...]
--- OUTSIDE RECORDS SUMMARY | 2020-11-08 10:09 | CCD ---
Author Author [facility] Organization [facility] Address Unknown Phone Unavailable Care Team Providers Care Wharf Labourer Name Role Phone Jeramie Larkin MD Unavailable Unavailable Jeramie Larkin MD Unavailable Unavailable Jeramie Larkin MD Unavailable Unavailable Jeramie Larkin MD Unavailable Unavailable Jeramie Larkin MD Unavailable Unavailable Jeramie Larkin MD Unavailable Unavailable Jeramie Larkin MD Unavailable Unavailable Jeramie Larkin MD Unavailable Unavailable Jeramie Larkin MD Unavailable Unavailable Jeramie Larkin MD Unavailable Unavailable Jeramie Larkin MD Unavailable Unavailable Jeramie Larkin MD Unavailable Unavailable Jeramie Larkin MD Unavailable Unavailable Jeramie Larkin MD Unavailable Unavailable Jeramie Larkin MD Unavailable Unavailable Jeramie Larkin MD Unavailable Unavailable Jeramie Larkin MD Unavailable Unavailable Jeramie Larikn MD Unavailable Unavailable Jeramie Larkin MD Unavailable Unavailable Jeramie Larkin MD Unavailable Unavailable Jeramie Larkin MD Unavailable Unavailable Jeramie Larkin MD Unavailable Unavailable Jeramie Larkin MD Unavailable Unavailable Jeramie Larkin MD Unavailable Unavailable Jeramie Larkin MD Unavailable Unavailable Jeramie Larkin MD Unavailable Unavailable Jeramie Larkin MD Unavailable Unavailable Jeramie Larkin MD Unavailable Unavailable Jeramie Larkin MD Unavailable Unavailable Jeramie Larkin MD Unavailable Unavailable Jeramie Larkin MD Unavailable Unavailable Jeramie Larkin MD Unavailable Unavailable Jeramie Larkin MD Unavailable Unavailable Jeramie Larkin MD Unavailable Unavailable Jeramie Larkin MD Unavailable Unavailable Jeramie Larkin MD Unavailable Unavailable Jeramie Larkin MD Unavailable Unavailable Jeramie Larkin MD Unavailable Unavailable Jeramie Larkin MD Unavailable Unavailable Jeramie Larkin MD Unavailable Unavailable Jeramie Larkin MD Unavailable Unavailable Jeramie Larkin MD Unavailable Unavailable Jeramie Larkin MD Unavailable Unavailable Jeramie Larkin MD Unavailable Unavailable Jeramie Larkin MD Unavailable Unavailable Jeramie Larkin MD Unavailable Unavailable Jeramie Larkin MD Unavailable Unavailable Jeramie Larkin MD Unavailable Unavailable Jeramie Larkin MD Unavailable Unavailable Jeramie Larkin MD Unavailable Unavailable Jeramie Larkin MD Unavailable Unavailable Jeramie Larkin MD Unavailable Unavailable Jeramie Larkin MD Unavailable Unavailable Jeramie Larkin MD Unavailable Unavailable Jeramie Larkin MD Unavailable Unavailable Jeramie Larkin MD Unavailable Unavailable Jeramie Larkin MD Unavailable Unavailable Jeramie Larkin MD Unavailable Unavailable Jeramie Larkin MD Unavailable Unavailable Jeramie Larkin MD Unavailable Unavailable Jeramie Larkin MD Unavailable Unavailable Jeramie Larkin MD Unavailable Unavailable Jeramie Larkin MD Unavailable Unavailable Jeramie Larkin MD Unavailable Unavailable Jeramie Larkin MD Unavailable Unavailable Jeramie Larkin MD Unavailable Unavailable Jeramie Larkin MD Unavailable Unavailable Jeramie Larkin MD Unavailable Unavailable Jeramie Larkin MD Unavailable Unavailable Jeramie Larkin MD Unavailable Unavailable Jeramie Larkin MD Unavailable Unavailable Jeramie Larkin MD Unavailable Unavailable Jeramie Larkin MD Unavailable Unavailable Jeramie Larkin MD Unavailable Unavailable Jeramie Larkin MD Unavailable Unavailable Jeramie Larkin MD Unavailable Unavailable Jeramie Larkin MD Unavailable Unavailable Jeramie Larkin MD Unavailable Unavailable Jeramie Larkin MD Unavailable Unavailable Jeramie Larkin MD Unavailable Unavailable Jeramie Larkin MD Unavailable Unavailable Jeramie Larkin MD Unavailable Unavailable Jeramie Larkin MD Unavailable Unavailable Jeramie Larkin MD Unavailable Unavailable Jeramie Larkin MD Unavailable Unavailable Jeramie Larkin MD Unavailable Unavailable Jeramie Larkin MD Unavailable Unavailable Jeramie Larkin MD Unavailable Unavailable Jeramie Larkin MD Unavailable Unavailable Scordo, M Gina PA Unavailable Unavailable Scordo, M Gina PA Unavailable Unavailable Scordo, M Gina PA Unavailable Unavailable Scordo, M Gina PA Unavailable Unavailable Scordo, M Gina PA Unavailable Unavailable Scordo, M Gina PA Unavailable Unavailable Scordo, M Gina PA Unavailable Unavailable Scordo, M Gina PA Unavailable Unavailable Scordo, M Gina PA Unavailable Unavailable Scordo, M Gina PA Unavailable Unavailable Scordo, M Gina PA Unavailable Unavailable Scordo, M Gina PA Unavailable Unavailable Scordo, M Gina PA Unavailable Unavailable Scordo, M Gina PA Unavailable Unavailable Scordo, M Gina PA Unavailable Unavailable Scordo, M Gina PA Unavailable Unavailable Scordo, M Gina PA Unavailable Unavailable Scordo, M Gina PA Unavailable Unavailable Scordo, M Gina PA Unavailable Unavailable Scordo, M Gina PA Unavailable Unavailable Scordo, M Gina PA Unavailable Unavailable Scordo, M Gina PA Unavailable Unavailable Scordo, M Gina PA Unavailable Unavailable Scordo, M Gina PA Unavailable Unavailable Scordo, M Gina PA Unavailable Unavailable Scordo, M Gina PA Unavailable Unavailable Scordo, M Gina PA Unavailable Unavailable Scordo, M Gina PA Unavailable Unavailable Scordo, M Gina PA Unavailable Unavailable Scordo, M Gina PA Unavailable Unavailable Scordo, M Gina PA Unavailable Unavailable Scordo, M Gina PA Unavailable Unavailable Scordo, M Gina PA Unavailable Unavailable Scordo, M Gina PA Unavailable Unavailable Scordo, M Gina PA Unavailable Unavailable Scordo, M Gina PA Unavailable Unavailable Scordo, M Gina PA Unavailable Unavailable Scordo, M Gina PA Unavailable Unavailable Scordo, M Gina PA Unavailable Unavailable Scordo, M Gina PA Unavailable Unavailable Scordo, M Gina PA Unavailable Unavailable Scordo, M Gina PA Unavailable Unavailable Briseyda Clements MD Unavailable Unavailable Briseyda Clements MD Unavailable Unavailable Briseyda Clements MD Unavailable Unavailable Briseyda Clements MD Unavailable Unavailable Briseyda Clements MD Unavailable Unavailable Briseyda Clements MD Unavailable Unavailable Briseyda Clements MD Unavailable Unavailable Briseyda Clements MD Unavailable Unavailable Briseyda Clements MD Unavailable Unavailable Briseyda Clements MD Unavailable Unavailable Briseyda Clements MD Unavailable Unavailable Briseyda Clements MD Unavailable Unavailable Briseyda Clements MD Unavailable Unavailable Briseyda Clements MD Unavailable Unavailable Briseyda Clements MD Unavailable Unavailable Briseyda Clements MD Unavailable Unavailable Briseyda Clements MD Unavailable Unavailable Briseyda Clements MD Unavailable Unavailable Briseyda Clements MD Unavailable Unavailable Briseyda Clements MD Unavailable Unavailable Circelli, Briseyda MD Unavailable Unavailable CircChoco pottsishma MD Unavailable Unavailable Circelli Briseyda MD Unavailable Unavailable Circelli Briseyda MD Unavailable Unavailable CircChoco pottsishma MD Unavailable Unavailable Circelli Briseyda MD Unavailable Unavailable Circelli Briseyda MD Unavailable Unavailable Circelli Briseyda MD Unavailable Unavailable Circelli Briseyda MD Unavailable Unavailable Circelli Briseyda MD Unavailable Unavailable Circelli Briseyda MD Unavailable Unavailable Circelli Briseyda MD Unavailable Unavailable Circelli Briseyda MD Unavailable Unavailable Circelli Briseyda MD Unavailable Unavailable Circelli, Briseyda MD Unavailable Unavailable Circelli, Briseyda MD Unavailable Unavailable Circelli Briseyda MD Unavailable Unavailable Circelli Briseyda MD Unavailable Unavailable CircChoco pottsishma MD Unavailable Unavailable Circelli Briseyda MD Unavailable Unavailable Circelli Briseyda MD Unavailable Unavailable Circelli Briseyda MD Unavailable Unavailable Circelli Briseyda MD Unavailable Unavailable Circelli Briseyda MD Unavailable Unavailable CircChoco pottsishma MD Unavailable Unavailable CircelliChocoBriseyda MD Unavailable Unavailable CircChoco pottsishma MD Unavailable Unavailable Bari, Angie SAFETY PIN ASSEMBLING MACHINE OPERATOR SAFETY PIN ASSEMBLING MACHINE OPERATOR Unavailable Unavailable Bari, A Angie SAFETY PIN ASSEMBLING MACHINE OPERATOR Unavailable Unavailable Bari, A Angie SAFETY PIN ASSEMBLING MACHINE OPERATOR Unavailable Unavailable Bari, A Angie SAFETY PIN ASSEMBLING MACHINE OPERATOR Unavailable Unavailable Bari, A Angie SAFETY PIN ASSEMBLING MACHINE OPERATOR Unavailable Unavailable Bari, A Angie SAFETY PIN ASSEMBLING MACHINE OPERATOR Unavailable Unavailable Bari, A Angie SAFETY PIN ASSEMBLING MACHINE OPERATOR Unavailable Unavailable Bari, A Angie SAFETY PIN ASSEMBLING MACHINE OPERATOR Unavailable Unavailable Bari, A Angie SAFETY PIN ASSEMBLING MACHINE OPERATOR Unavailable Unavailable Bari, A Angie SAFETY PIN ASSEMBLING MACHINE OPERATOR Unavailable Unavailable Bari, A Angie SAFETY PIN ASSEMBLING MACHINE OPERATOR Unavailable Unavailable Bari, A Angie SAFETY PIN ASSEMBLING MACHINE OPERATOR Unavailable Unavailable Bari, A Angie SAFETY PIN ASSEMBLING MACHINE OPERATOR Unavailable Unavailable Bari, A Angie SAFETY PIN ASSEMBLING MACHINE OPERATOR Unavailable Unavailable Bari, A Angie SAFETY PIN ASSEMBLING MACHINE OPERATOR Unavailable Unavailable Bari, A Angie SAFETY PIN ASSEMBLING MACHINE OPERATOR Unavailable Unavailable Bari, A Angie SAFETY PIN ASSEMBLING MACHINE OPERATOR Unavailable Unavailable Bari, A Angie SAFETY PIN ASSEMBLING MACHINE OPERATOR Unavailable Unavailable Bari, A Angie SAFETY PIN ASSEMBLING MACHINE OPERATOR Unavailable Unavailable Bari, A Angie SAFETY PIN ASSEMBLING MACHINE OPERATOR Unavailable Unavailable Bari, A Angie SAFETY PIN ASSEMBLING MACHINE OPERATOR Unavailable Unavailable Bari, A Angie SAFETY PIN ASSEMBLING MACHINE OPERATOR Unavailable Unavailable Bari, A Angie SAFETY PIN ASSEMBLING MACHINE OPERATOR Unavailable Unavailable Bari, A Angie SAFETY PIN ASSEMBLING MACHINE OPERATOR Unavailable Unavailable Bari, A Angie SAFETY PIN ASSEMBLING MACHINE OPERATOR Unavailable Unavailable Bari, A Angie SAFETY PIN ASSEMBLING MACHINE OPERATOR Unavailable Unavailable Bari, A Angie SAFETY PIN ASSEMBLING MACHINE OPERATOR Unavailable Unavailable Bari, A Angie SAFETY PIN ASSEMBLING MACHINE OPERATOR Unavailable Unavailable Bari, A Angie SAFETY PIN ASSEMBLING MACHINE OPERATOR Unavailable Unavailable Fostveit, Megan Unavailable Unavailable Fostveit, Megan Unavailable Unavailable Re-disclosure Warning The records that you are about to access may contain information from federally-assisted alcohol or drug abuse programs. If such information is present, then the following federally mandated warning applies: This information has been disclosed to you from records protected by federal confidentiality rules (42 CFR part 2). The federal rules prohibit you from making any further disclosure of this information unless further disclosure is expressly permitted by the written consent of the person to whom it pertains or as otherwise permitted by 42 CFR part 2. A general authorization for the release of medical or other information is NOT sufficient for this purpose. The Federal rules restrict any use of the information to criminally investigate or prosecute any alcohol or drug abuse patient.The records that you are about to access may contain highly sensitive health information, the redisclosure of which is protected by Article 27-F of the [facility] Public Health law. If you continue you may have access to information: Regarding HIV / AIDS; Provided by facilities licensed or operated by the [facility] Office of Mental Health; or Provided by the [facility] Office for People With Developmental Disabilities. If such information is present, then the following [facility] mandated warning applies: This information has been disclosed to you from confidential records which are protected by state law. State law prohibits you from making any further disclosure of this information without the specific written consent of the person to whom it pertains, or as otherwise permitted by law. Any unauthorized further disclosure in violation of state law may result in a fine or snf sentence or both. A general authorization for the release of medical or other information is NOT sufficient authorization for further disc losure. Encounters Encounter Providers Location Date Indications Data Source(s ) WILLIAM GrahamR: Delano Richards, [facility] [address], [place] [address], Ph. Attender: Megan Euceda [place] - [facility] Medical 11/05/2020 12:00:00 AM EST Z[facility]HRAA ([facility]) Megan Colon, EXPLOSIVES HANDLER-R: [address], [place] [address], Ph. Attender: Megan Euceda [facility] Medical 10/22/2020 12:00:00 AM EST [facility]AA ([facility]) ANGELA GrahamW-R: [address], [address], [place] [address], Ph. Attender: Megan Euceda [facility] Medical 10/22/2020 12:00:00 AM EST [facility] ([facility]) Adrian Larkin MD: [address] [place] [address], Ph. Attender: Adrian Larkin MD [facility] Medical 10/21/2020 12:00:00 AM EST [facility] ([facility]) Adrian Larkin MD: [address] [place] [address], Ph. Attender: Adrian Larkin MD [facility] Medical 10/21/2020 12:00:00 AM EST [facility] ([facility]) Adrian Larkin MD: [address] [place] [address], Ph. Attender: Adrian Larkin MD [facility] Medical 10/21/2020 12:00:00 AM EST [facility] ([facility]) ANGELA GrahamW-R: [address], [place] [address], Ph. Attender: Megan Euceda [facility] Medical 10/13/2020 12:00:00 AM EST [facility] ([facility]) ANGELA GrahamW-R: [address], [place] [address], Ph. Attender: Megan Euceda [facility] Medical 10/13/2020 12:00:00 AM EST [facility] ([facility]) Megan Colon LCSW-R: [address], [place] [address], Ph. Attender: Megan Wolffoscar [facility] Medical 10/13/2020 12:00:00 AM EST [facility] ([facility]) Megan Colon LCSW-R: [address], [place] [address], Ph. Attender: Megan Euceda [facility] Medical 10/13/2020 12:00:00 AM EST [facility] ([facility]) Gina Chris PA-C: [address], [place] [address], Ph. Attender: Gina [facility] Medical 10/06/2020 12:00:00 AM EST [facility] ([facility]) Gina Chris PA-C: [address], [place] [address], Ph. Attender: Gina [facility] Medical 10/06/2020 12:00:00 AM EST [facility] ([facility]) Gina Chris PA-C: [address], [place] [address], Ph. Attender: Gina [facility] Medical 10/06/2020 12:00:00 AM EST [facility] ([facility]) Gina Chris PA-C: [address], [place] [address], Ph. Attender: Gina [facility] Medical 10/06/2020 12:00:00 AM EST [facility] ([facility]) Gina Chris PA-C: [address], [place] [address], Ph. Attender: Gina [facility] Medical 10/06/2020 12:00:00 AM EST [facility] ([facility]) Gina Chris PA-C: [address], [place] [address], Ph. Attender: Gina [facility] Medical 08/25/2020 12:00:00 AM EST [facility] ([facility]) Gina Chris PA-C: [address], [place] [address], Ph. Attender: Gina [facility] Medical 08/25/2020 12:00:00 AM EST [facility] ([facility]) Gina Chris PA-C: [address], [place] [address], Ph. Attender: Gina [facility] Medical 08/25/2020 12:00:00 AM EST [facility]HARAA ([facility]) Gina Chris PA-C: [address], [place] [address], Ph. Attender: Gina [facility] Medical 08/25/2020 12:00:00 AM EST [facility] ([facility]) Gina Chris PA-C: [address], [place] [address], Ph. Attender: Gina [facility] Medical 08/25/2020 12:00:00 AM EST [facility] ([facility]) Gina Chris PA-C: [address] [place] [address], Ph. Attender: Gina FLEM[facility] - [facility] - [facility] 08/25/2020 12:00:00 AM EST [facility]HRAA ([facility]) Outpatient Attender: SAFETY PIN ASSEMBLING MACHINE OPERATOR Bari [facility] 08/12/2020 01:24:00 P M [facility] Outpatient Attender: SAFETY PIN ASSEMBLING MACHINE OPERATOR Bari [facility] 08/12/2020 01:09:01 P M EST [facility] Outpatient Attender: SAFETY PIN ASSEMBLING MACHINE OPERATOR Bari [facility] 08/12/2020 01:08:00 P M [facility] Outpatient Attender: SAFETY PIN ASSEMBLING MACHINE OPERATOR Bari [facility] 08/12/2020 01:06:01 P M [facility] Outpatient Attender: HUMBLE Candelaria [facility] 04/29/2020 05:19:01 A M EDT [facility] Outpatient Attender: Angie Candelaria [facility] 04/29/2020 05:1 9:00 AM EDT [facility] Outpatient Attender: HUMBLE Candelaria [facility] 04/28/2020 09:51:01 A M EDT [facility] Outpatient [facility] 04/15/2020 12:02:13 AM EDT [facility] Outpatient [facility] 04/14/2020 12:07:01 PM EDT [facility] Outpatient [facility] 04/14/2020 12:02:00 PM EDT [facility] 09/17/2019 02:47:[address] [facility] Attender: Briseyda Clements MD [facility]EU 07/20/2019 10:39 :[address] [facility] Medications Medication Brand Name Start Date Product Form Dose Route Admi nistrative Instructions Pharmacy Instructions Status Indications Reaction Description Data Source(s) Pyridoxine Hydrochloride 25 MG Oral Tablet Vitamin B-6 25 mg tablet Vitamin B-6 25 mg tablet completed p yridoxine hydrochloride 25 MG Oral Tablet ZAHRAA ([facility]) Pyridoxine Hydrochloride 25 MG Oral Tablet Vitamin B-6 25 mg tablet Vitamin B-6 25 mg tablet completed p yridoxine hydrochloride 25 MG Oral Tablet ZAHRAA ([facility]) paroxetine 20 mg tablet [id number] complet ed paroxetine hydrochloride 20 MG Oral Tablet ZAHARA ([facility]) Pyridoxine Hydrochloride 25 MG Oral Tablet Vitamin B-6 25 mg tablet Vitamin B-6 25 mg tablet completed p yridoxine hydrochloride 25 MG Oral Tablet ZAHRAA ([facility]) Pyridoxine Hydrochloride 25 MG Oral Tablet Vitamin B-6 25 mg tablet Vitamin B-6 25 mg tablet completed p yridoxine hydrochloride 25 MG Oral Tablet ZAHRAA ([facility]) paroxetine 20 mg tablet 846653 complet ed paroxetine hydrochloride 20 MG Oral Tablet ZAHRAA ([facility]) paroxetine 20 mg tablet 756382 complet ed paroxetine hydrochloride 20 MG Oral Tablet [facility]HRAA ([facility]) paroxetine 20 mg tablet 545500 complet ed paroxetine hydrochloride 20 MG Oral Tablet ZAHRAA ([facility]) paroxetine 20 mg tablet 723658 complet ed paroxetine hydrochloride 20 MG Oral Tablet ZAHRAA ([facility]) Pyridoxine Hydrochloride 25 MG Oral Tablet Vitamin B-6 25 mg tablet Vitamin B-6 25 mg tablet completed p yridoxine hydrochloride 25 MG Oral Tablet ZAHRAA ([facility]) paroxetine 20 mg tablet 572869 complet ed paroxetine hydrochloride 20 MG Oral Tablet ZAHRAA ([facility]) Insurance Providers Payer name Policy type / Coverage type Policy ID Covered republican ID Covered republican's relationship to kilgore Policy [place] Plan Information MANUEL [id number] SP [id number] MANUEL [facility] O [id number] O [id number] Managed Care [place] P UNAVAILABLE S UNAVAILABLE Medicaid S UNAVAILABLE S UNAVAILA BLE MANUEL [id number] SP [id number] MANUEL [id number] SP [id number] MANUEL [id number] Self [id number] MANUEL [id number] [place] Individual Policy 0 Self 0 MANUEL [id number] Patient [id number] [place] Individual Policy 0 Self 0 [place] Individual Policy 0 Self 0 Manuel [place] Individual Policy 0 Self 0 [place] Individual Policy 0 Self 0 [place] Individual Policy 0 Self 0 Manuel [place] Individual Policy 0 Self 0 [place] Other 0 Self 0 MEDICAID [id number] Patient [id number] [place] Other 0 Self 0 [place] Other 0 Self 0 COMM MISSING INFO MISSING Patient ID SSING CDPHP MEDICAID [id number] Patient DCZ [id number] Medicaid [facility] Other 0 Self 0 Problems, Conditions, and Diagnoses Code Display Name Description Problem Type Effective Dates Data Source(s) 91277383 Allergic rhinitis Allergic Rhinitis Problem 08/25/2020 12:00:00 AM EST [facility] ([facility]) [id number] Depressive disorder Depressive Disorder Problem 1 10/25/2019 12:00:00 AM EST [facility] ([facility]) [id number] Allergic rhinitis Allergic Rhinitis Problem 08/25/2020 12:00:00 AM EST [facility] ([facility]) [id number] Depressive disorder Depressive Disorder Problem 1 10/25/2019 12:00:00 AM EST [facility]AA ([facility]) [id number] Allergic rhinitis Allergic Rhinitis Problem 08/25/2020 12:00:00 AM EST [facility] ([facility]) [id number] Depressive disorder Depressive Disorder Problem 1 10/25/2019 12:00:00 AM EST [facility] ([facility]) [id number] Allergic rhinitis Allergic Rhinitis Problem 08/25/2020 12:00:00 AM EST [facility] ([facility]) [id number] Depressive disorder Depressive Disorder Problem 1 10/25/2019 12:00:00 AM EST [facility]AA ([facility]) [id number] Allergic rhinitis Allergic Rhinitis Problem 08/25/2020 12:00:00 AM EST [facility] ([facility]) 93654522 Depressive disorder Depressive Disorder Problem 1 10/25/2019 12:00:00 AM EST [facility] ([facility]) [id number] Allergic rhinitis Allergic Rhinitis Problem 08/25/2020 12:00:00 AM EST [facility] ([facility]) [id number] Depressive disorder Depressive Disorder Problem 1 10/25/2019 12:00:00 AM EST [facility]AA ([facility]) Results ID Date Data Source [id number] 10/21/2020 01:51:00 PM EST [facility]AA ([facility]) Name Value Range Interpretation Code Description Data Amie rce(s) Supporting Document(s) Hemoglobin A1c/Hemoglobin.total in Blood Hba1C PAGETON ([facility]) ID Date Data Source [id number] 10/21/2020 01:51:00 PM EST [facility]AA ([facility]) Name Value Range Interpretation Code Description Data Amie rce(s) Supporting Document(s) Hemoglobin A1c/Hemoglobin.total in Blood Hba1C [facility]AG[facility] ([facility]) ID Date Data Source [id number] 10/21/2020 09:50:00 AM EST [facility]AHRAA ([facility]) Name Value Range Interpretation Code Description Data Amie rce(s) Supporting Document(s) ferritin 13 NG/mL 8-252 normal Ferritin [facility]) ID Date Data Source [id number] 10/21/2020 09:50:00 AM EST [facility] ([facility]) Name Value Range Interpretation Code Description Data Amie rce(s) Supporting Document(s) iron (fe) 102 ug/dL 50-170 normal Iron (Fe) PAGETON ([facility]) total iron binding capacity 483 ug/dL 250-450 Above high no rmal Total Iron Binding Capacity [facility] ([facility]) percent saturation 21.1 % 13.2-45.0 normal Percent Saturatio n [facility] ([facility] [facility] ID Date Data Source [id number] 10/21/2020 09:50:00 AM EST [facility] ([facility]) Name Value Range Interpretation Code Description Data Amie rce(s) Supporting Document(s) white blood count 14.7 10 4.0-10.0 Above high normal White Blood Count [facility] ([facility]) red blood count 3.84 10 4.00-5.40 Below low normal Red Blood Coun t [facility] ([facility]) hemoglobin 11.7 g/dL 12.0-15.5 Below low normal Hemoglobin ZAHRAA ( [facility]) hematocrit 36.1 % 36.0-47.0 normal Hematocrit [facility] ([facility]) mean corpuscular volume 94.0 fL 80.0-96.0 normal Mean Corpusc ular Volume [facility] ([facility]) mean corpuscular HGB conc 32.4 g/dL 32.0-36.5 normal Mean Corpu scular HGB Conc [facility]AA ([facility]) mean corpuscular hemoglobin 30.5 pg 27.0-33.0 normal Mean Corpuscular Hemoglobin [facility] ([facility]) red cell distribution width 13.4 % 11.5-14.5 normal Red Cell Distribution Width [facility] ([facility]) neutrophils % 72.9 % 36.0-66.0 Above high normal Neutrophils % A [facility] ([facility]) platelet count, automated 225 10 150-450 normal Platelet C ount, Automated [facility] ([facility]) lymph % 17.1 % 24.0-44.0 Below low normal Lymph % ZAHRAA ( [facility]) eos % 0.4 % 0.0-3.0 normal Eos % [facility] ([facility]) mono % 8.4 % 0.0-5.0 Above high normal [place] % [facility] ([facility]) baso % 0.2 % 0.0-1.0 normal Baso % [facility] ([facility]) immature granulocyte % 1.0 % 0-3.0 normal Immature Gran ulocyte % [facility] ([facility]) nucleated red blood cell % 0.0 % 0-0 normal Nucleated Red Blood Cell % [facility] ([facility]) neutrophils # 10.7 10 1.5-8.5 Above high normal Neutrophils # A [facility] ([facility]) lymph # 2.5 10 1.5-5.0 normal Lymph # [facility] ([facility]) eos # 0.1 10 0.0-0.5 normal Eos # [facility] ([facility]) mono # 1.2 10 0.0-0.8 Above high normal [place] # [facility] ([facility]) baso # 0.0 10 0.0-0.2 normal Baso # [facility] ([facility]) ID Date Data Source [id number] 10/21/2020 09:50:00 AM EST [facility] ([facility]) Name Value Range Interpretation Code Description Data Amie rce(s) Supporting Document(s) ferritin 13 NG/mL 8-252 normal Ferritin [facility] ([facility]) ID Date Data Source [id number] 10/21/2020 09:50:00 AM EST [facility] ([facility]) Name Value Range Interpretation Code Description Data Amie rce(s) Supporting Document(s) total iron binding capacity 483 ug/dL 250-450 Above high no rmal Total Iron Binding Capacity [facility] ([facility]) iron (fe) 102 ug/dL 50-170 normal Iron (Fe) [facility] ([facility]) percent saturation 21.1 % 13.2-45.0 normal Percent Saturatio n [facility]AA ([facility]) ID Date Data Source [id number] 10/21/2020 09:50:00 AM EST [facility] ([facility]) Name Value Range Interpretation Code Description Data Amie rce(s) Supporting Document(s) white blood count 14.7 10 4.0-10.0 Above high normal White Blood Count [facility] ([facility]) hemoglobin 11.7 g/dL 12.0-15.5 Below low normal Hemoglobin [facility] ( [facility]) red blood count 3.84 10 4.00-5.40 Below low normal Red Blood Coun t [facility] ([facility]) hematocrit 36.1 % 36.0-47.0 normal Hematocrit [facility] ([facility]) mean corpuscular hemoglobin 30.5 pg 27.0-33.0 normal Mean Corpuscular Hemoglobin [facility] ([facility]) mean corpuscular HGB conc 32.4 g/dL 32.0-36.5 normal Mean Corpu scular HGB Conc [facility] ([facility]) mean corpuscular volume 94.0 fL 80.0-96.0 normal Mean Corpusc ular Volume [facility] ([facility]) platelet count, automated 225 10 150-450 normal Platelet C ount, Automated [facility] ([facility]) neutrophils % 72.9 % 36.0-66.0 Above high normal Neutrophils % A [facility] ([facility]) red cell distribution width 13.4 % 11.5-14.5 normal Red Cell Distribution Width [facility] ([facility]) eos % 0.4 % 0.0-3.0 normal Eos % [facility] ([facility]) mono % 8.4 % 0.0-5.0 Above high normal [place] % [facility] ([facility]) lymph % 17.1 % 24.0-44.0 Below low normal Lymph % [facility] ( [facility]) nucleated red blood cell % 0.0 % 0-0 normal Nucleated Red Blood Cell % [facility] ([facility]) immature granulocyte % 1.0 % 0-3.0 normal Immature Gran ulocyte % [facility] ([facility]) baso % 0.2 % 0.0-1.0 normal Baso % [facility] ([facility]) neutrophils # 10.7 10 1.5-8.5 Above high normal Neutrophils # A [facility] ([facility]) lymph # 2.5 10 1.5-5.0 normal Lymph # [facility] ([facility]) eos # 0.1 10 0.0-0.5 normal Eos # [facility] ([facility]) mono # 1.2 10 0.0-0.8 Above high normal [place] # [facility] ([facility]) baso # 0.0 10 0.0-0.2 normal Baso # [facility] ([facility]) ID Date Data Source [id number] 10/06/2020 01:40:00 PM EST [facility] ([facility]) Name Value Range Interpretation Code Description Data Amie rce(s) Supporting Document(s) thyroid stimulating hormone 0.921 uIU/mL 0.358-3.740 normal Thyroid Stimulating Hormone [facility] ([facility]) ID Date Data Source [id number] 10/06/2020 01:40:00 PM EST [facility] ([facility]) Name Value Range Interpretation Code Description Data Amie rce(s) Supporting Document(s) glucose, fasting 104 mg/dL 70-100 Above high normal Glucose, Fas ting [facility] ([facility]) creatinine for GFR 0.57 mg/dL 0.55-1.30 normal Creatinine for GF R [facility] ([facility]) glomerular filtration rate > 60.0 >60 normal Glomerula r Filtration Rate ZAHRAA ([facility]) blood urea nitrogen 7 mg/dL 7-18 normal Blood Urea Nitro gen ZAHRAA ([facility]) sodium level 139 mEq/L 136-145 normal Sodium Level [facility] ([facility]) potassium serum 4.1 mEq/L 3.5-5.1 normal Potassium Serum ATHE ([facility]) carbon dioxide level 27 mEq/L 21-32 normal Carbon Dioxide Level [facility] ([facility]) chloride level 106 mEq/L 98-107 normal Chloride Level [facility] ([facility]) anion gap 6 mEq/L 8-16 Below low normal Anion Gap [facility] ( [facility]) AST/SGOT 4 U/L 7-37 Below low normal AST/SGOT [facility] ( [facility]) calcium level 8.6 mg/dL 8.5-10.1 normal Calcium Level [facility] ( [facility]) ALT/SGPT 12 U/L 12-78 normal ALT/SGPT [facility] ([facility]) alkaline phosphatase 76 U/L 45-117 normal Alkaline Phosph atase [facility] ([facility]) total protein 6.3 gm/dL 6.4-8.2 Below low normal Total Protein AT [facility]) bilirubin,total 0.3 mg/dL 0.2-1.0 normal Bilirubin,[facility] albumin 2.5 gm/dL 3.2-5.2 Below low normal Albumin [facility] ( [facility]) albumin/globulin ratio 1.2-2.2 Below low normal Albumin /globulin Ratio [facility] ([facility]) ID Date Data Source [id number] 10/06/2020 01:40:00 PM EST [facility] ([facility]) Name Value Range Interpretation Code Description Data Amie rce(s) Supporting Document(s) white blood count 13.3 10 4.0-10.0 Above high normal White Blood Count [facility] ([facility]) red blood count 3.91 10 4.00-5.40 Below low normal Red Blood Coun t [facility] ([facility]) hemoglobin 11.5 g/dL 12.0-15.5 Below low normal Hemoglobin [facility]AA ( [facility]) hematocrit 36.9 % 36.0-47.0 normal Hematocrit [facility] ([facility]) mean corpuscular hemoglobin 29.4 pg 27.0-33.0 normal Mean Corpuscular Hemoglobin [facility] ([facility]) mean corpuscular volume 94.4 fL 80.0-96.0 normal Mean Corpusc ular Volume [facility] ([facility]) mean corpuscular HGB conc 31.2 g/dL 32.0-36.5 Below low shaq l Mean Corpuscular HGB Conc [facility] ([facility]) red cell distribution width 13.2 % 11.5-14.5 normal Red Cell Distribution Width [facility] ([facility]) platelet count, automated 236 10 150-450 normal Platelet C ount, Automated [facility] ([facility]) neutrophils % 74.2 % 36.0-66.0 Above high normal Neutrophils % A [facility] ([facility]) lymph % 17.2 % 24.0-44.0 Below low normal Lymph % [facility] ( [facility]) mono % 7.3 % 0.0-5.0 Above high normal [place] % [facility] ([facility]) eos % 0.4 % 0.0-3.0 normal Eos % [facility] ([facility]) baso % 0.2 % 0.0-1.0 normal Baso % [facility] ([facility]) nucleated red blood cell % 0.0 % 0-0 normal Nucleated Red Blood Cell % Z[facility]HRAA ([facility]) immature granulocyte % 0.7 % 0-3.0 normal Immature Gran ulocyte % [facility] ([facility]) lymph # 2.3 10 1.5-5.0 normal Lymph # [facility]HRAA ([facility]) neutrophils # 9.9 10 1.5-8.5 Above high normal Neutrophils # A [facility] ([facility]) mono # 1.0 10 0.0-0.8 Above high normal [place] # [facility] ([facility]) eos # 0.1 10 0.0-0.5 normal Eos # [facility] ([facility]) baso # 0.0 10 0.0-0.2 normal Baso # [facility] ([facility]) ID Date Data Source [id number] 10/06/2020 01:40:00 PM EST [facility] ([facility]) Name Value Range Interpretation Code Description Data Amie rce(s) Supporting Document(s) thyroid stimulating hormone 0.921 uIU/mL 0.358-3.740 normal Thyroid Stimulating Hormone [facility] ([facility]) ID Date Data Source [id number] 10/06/2020 01:40:00 PM EST [facility] ([facility]) Name Value Range Interpretation Code Description Data Amie rce(s) Supporting Document(s) glucose, fasting 104 mg/dL 70-100 Above high normal Glucose, Fas ting [facility] ([facility]) blood urea nitrogen 7 mg/dL 7-18 normal Blood Urea Nitro gen [facility]HRAA ([facility]) creatinine for GFR 0.57 mg/dL 0.55-1.30 normal Creatinine for GF R [facility] ([facility]) potassium serum 4.1 mEq/L 3.5-5.1 normal Potassium Serum ATH NA ([facility]) sodium level 139 mEq/L 136-145 normal Sodium Level [facility]HRAA ([facility]) glomerular filtration rate > 60.0 >60 normal Glomerula r Filtration Rate ZA[facility]AA ([facility]) anion gap 6 mEq/L 8-16 Below low normal Anion Gap [facility]AA ( [facility]) carbon dioxide level 27 mEq/L 21-32 normal Carbon Dioxide Level [facility]AA ([facility]) chloride level 106 mEq/L 98-107 normal Chloride Level [facility] ([facility]) calcium level 8.6 mg/dL 8.5-10.1 normal Calcium Level [facility]AA ( [facility]) total protein 6.3 gm/dL 6.4-8.2 Below low normal Total Protein AT [facility] ([facility]) AST/SGOT 4 U/L 7-37 Below low normal AST/SGOT [facility]AA ( [facility]) bilirubin,total 0.3 mg/dL 0.2-1.0 normal Bilirubin,total ATHE ([facility]) alkaline phosphatase 76 U/L 45-117 normal Alkaline Phosph atase [facility]AA ([facility]) ALT/SGPT 12 U/L 12-78 normal ALT/SGPT [facility] ([facility]) albumin 2.5 gm/dL 3.2-5.2 Below low normal Albumin [facility]AA ( [facility]) albumin/globulin ratio 1.2-2.2 Below low normal Albumin /globulin Ratio [facility] ([facility]) ID Date Data Source [id number] 10/06/2020 01:40:00 PM EST [facility] ([facility]) Name Value Range Interpretation Code Description Data Amie rce(s) Supporting Document(s) red blood count 3.91 10 4.00-5.40 Below low normal Red Blood Coun t [facility] ([facility]) hemoglobin 11.5 g/dL 12.0-15.5 Below low normal Hemoglobin [facility]AA ( [facility]) white blood count 13.3 10 4.0-10.0 Above high normal White Blood Count [facility] ([facility]) mean corpuscular volume 94.4 fL 80.0-96.0 normal Mean Corpusc ular Volume [facility]HRAA ([facility]) mean corpuscular HGB conc 31.2 g/dL 32.0-36.5 Below low shaq l Mean Corpuscular HGB Conc [facility]AA ([facility]) mean corpuscular hemoglobin 29.4 pg 27.0-33.0 normal Mean Corpuscular Hemoglobin [facility] ([facility]) hematocrit 36.9 % 36.0-47.0 normal Hematocrit [facility] ([facility]) platelet count, automated 236 10 150-450 normal Platelet C ount, Automated [facility] ([facility]) red cell distribution width 13.2 % 11.5-14.5 normal Red Cell Distribution Width [facility] ([facility]) lymph % 17.2 % 24.0-44.0 Below low normal Lymph % [facility] ( [facility]) neutrophils % 74.2 % 36.0-66.0 Above high normal Neutrophils % A [facility] ([facility]) eos % 0.4 % 0.0-3.0 normal Eos % [facility] ([facility]) mono % 7.3 % 0.0-5.0 Above high normal [place] % [facility] ([facility]) baso % 0.2 % 0.0-1.0 normal Baso % [facility] ([facility]) immature granulocyte % 0.7 % 0-3.0 normal Immature Gran ulocyte % Z[facility]HRAA ([facility]) nucleated red blood cell % 0.0 % 0-0 normal Nucleated Red Blood Cell % [facility] ([facility]) mono # 1.0 10 0.0-0.8 Above high normal [place] # [facility]HRAA ([facility]) neutrophils # 9.9 10 1.5-8.5 Above high normal Neutrophils # A [facility] ([facility]) lymph # 2.3 10 1.5-5.0 normal Lymph # [facility]HRAA ([facility]) baso # 0.0 10 0.0-0.2 normal Baso # [facility] ([facility]) eos # 0.1 10 0.0-0.5 normal Eos # [facility] ([facility]) ID Date Data Source [id number] 10/06/2020 01:40:00 PM EST [facility] ([facility]) Name Value Range Interpretation Code Description Data Amie rce(s) Supporting Document(s) thyroid stimulating hormone 0.921 uIU/mL 0.358-3.740 normal Thyroid Stimulating Hormone [facility] ([facility]) ID Date Data Source [id number] 10/06/2020 01:40:00 PM EST [facility] ([facility]) Name Value Range Interpretation Code Description Data Amie rce(s) Supporting Document(s) glucose, fasting 104 mg/dL 70-100 Above high normal Glucose, Fas ting ZAHRAA ([facility]) glomerular filtration rate > 60.0 >60 normal Glomerula r Filtration Rate [facility] ([facility]) blood urea nitrogen 7 mg/dL 7-18 normal Blood Urea Nitro gen [facility] ([facility]) creatinine for GFR 0.57 mg/dL 0.55-1.30 normal Creatinine for GF R [facility] ([facility]) anion gap 6 mEq/L 8-16 Below low normal Anion Gap [facility] ( [facility]) potassium serum 4.1 mEq/L 3.5-5.1 normal Potassium Serum ATH NA ([facility]) chloride level 106 mEq/L 98-107 normal Chloride Level [facility] ([facility]) carbon dioxide level 27 mEq/L 21-32 normal Carbon Dioxide Level [facility] ([facility]) sodium level 139 mEq/L 136-145 normal Sodium Level [facility] ([facility]) alkaline phosphatase 76 U/L 45-117 normal Alkaline Phosph atase [facility] ([facility]) calcium level 8.6 mg/dL 8.5-10.1 normal Calcium Level [facility] ( [facility]) ALT/SGPT 12 U/L 12-78 normal ALT/SGPT [facility] ([facility]) AST/SGOT 4 U/L 7-37 Below low normal AST/SGOT [facility] ( [facility]) albumin 2.5 gm/dL 3.2-5.2 Below low normal Albumin [facility] ( [facility]) total protein 6.3 gm/dL 6.4-8.2 Below low normal Total Protein AT [facility]) albumin/globulin ratio 1.2-2.2 Below low normal Albumin /globulin Ratio [facility]HR[facility] ([facility]) bilirubin,total 0.3 mg/dL 0.2-1.0 normal Bilirubin,total ATHE NA ([facility]) ID Date Data Source [id number] 10/06/2020 01:40:00 PM EST [facility] ([facility]) Name Value Range Interpretation Code Description Data Amie rce(s) Supporting Document(s) red blood count 3.91 10 4.00-5.40 Below low normal Red Blood Coun t [facility] ([facility]) hemoglobin 11.5 g/dL 12.0-15.5 Below low normal Hemoglobin [facility] ( [facility]) white blood count 13.3 10 4.0-10.0 Above high normal White Blood Count [facility] ([facility]) hematocrit 36.9 % 36.0-47.0 normal Hematocrit [facility] ([facility]) mean corpuscular hemoglobin 29.4 pg 27.0-33.0 normal Mean Corpuscular Hemoglobin [facility] ([facility]) mean corpuscular volume 94.4 fL 80.0-96.0 normal Mean Corpusc ular Volume [facility] ([facility]) mean corpuscular HGB conc 31.2 g/dL 32.0-36.5 Below low shaq l Mean Corpuscular HGB Conc [facility] ([facility]) red cell distribution width 13.2 % 11.5-14.5 normal Red Cell Distribution Width [facility] ([facility]) lymph % 17.2 % 24.0-44.0 Below low normal Lymph % [facility]AA ( [facility]) mono % 7.3 % 0.0-5.0 Above high normal [place] % [facility] ([facility]) platelet count, automated 236 10 150-450 normal Platelet C ount, Automated [facility] ([facility]) neutrophils % 74.2 % 36.0-66.0 Above high normal Neutrophils % A [facility] ([facility]) nucleated red blood cell % 0.0 % 0-0 normal Nucleated Red Blood Cell % [facility] ([facility]) eos % 0.4 % 0.0-3.0 normal Eos % [facility] ([facility]) immature granulocyte % 0.7 % 0-3.0 normal Immature Gran ulocyte % [facility] ([facility]) baso % 0.2 % 0.0-1.0 normal Baso % [facility] ([facility]) lymph # 2.3 10 1.5-5.0 normal Lymph # [facility]HRAA ([facility]) mono # 1.0 10 0.0-0.8 Above high normal [place] # [facility]HRAA ([facility]) neutrophils # 9.9 10 1.5-8.5 Above high normal Neutrophils # A [facility] ([facility]) eos # 0.1 10 0.0-0.5 normal Eos # [facility]AA ([facility]) baso # 0.0 10 0.0-0.2 normal Baso # [facility] ([facility]) ID Date Data Source [id number] 10/06/2020 01:40:00 PM EST [facility] ([facility]) Name Value Range Interpretation Code Description Data Amie rce(s) Supporting Document(s) thyroid stimulating hormone 0.921 uIU/mL 0.358-3.740 normal Thyroid Stimulating Hormone [facility] ([facility]) ID Date Data Source [id number] 10/06/2020 01:40:00 PM EST [facility] ([facility]) Name Value Range Interpretation Code Description Data Amie rce(s) Supporting Document(s) glomerular filtration rate > 60.0 >60 normal Glomerula r Filtration Rate [facility] ([facility]) creatinine for GFR 0.57 mg/dL 0.55-1.30 normal Creatinine for GF R [facility] ([facility]) glucose, fasting 104 mg/dL 70-100 Above high normal Glucose, Fas ting [facility] ([facility]) blood urea nitrogen 7 mg/dL 7-18 normal Blood Urea Nitro gen [facility] ([facility]) carbon dioxide level 27 mEq/L 21-32 normal Carbon Dioxide Level [facility] ([facility]) potassium serum 4.1 mEq/L 3.5-5.1 normal Potassium Serum ATHE NA ([facility]) chloride level 106 mEq/L 98-107 normal Chloride Level [facility] ([facility]) anion gap 6 mEq/L 8-16 Below low normal Anion Gap [facility] ( [facility]) sodium level 139 mEq/L 136-145 normal Sodium Level [facility] ([facility]) AST/SGOT 4 U/L 7-37 Below low normal AST/SGOT [facility] ( [facility]) bilirubin,total 0.3 mg/dL 0.2-1.0 normal Bilirubin,total ATHE NA ([facility]) calcium level 8.6 mg/dL 8.5-10.1 normal Calcium Level [facility]AA ( [facility]) alkaline phosphatase 76 U/L 45-117 normal Alkaline Phosph atase [facility] ([facility]) ALT/SGPT 12 U/L 12-78 normal ALT/SGPT [facility] ([facility]) total protein 6.3 gm/dL 6.4-8.2 Below low normal Total Protein AT [facility] ([facility]) albumin 2.5 gm/dL 3.2-5.2 Below low normal Albumin [facility]HRAA ( [facility]) albumin/globulin ratio 1.2-2.2 Below low normal Albumin /globulin Ratio [facility] ([facility]) ID Date Data Source [id number] 04/24/2020 08:40:00 AM EDT [facility] Name Value Range Interpretation Code Description Data Amie rce(s) Supporting Document(s) HCT 40.5 % 36.0-47.0 N [facility] HGB 12.9 g/dL 12.0-15.5 N [facility] MCH 31.9 G/DL pg 32.0-36.5 L [facility] MCHC 28.2 PG % 27.0-33.0 N [facility] PLATELETS 257 10 10*3/mm3 150-450 N [facility] RBC 4.58 10 10*6/mm3 4.00-5.40 N [facility] RDW 13.3 % 11.5-14.5 N [facility] WBC TOTAL 8.2 4.0-10.0 N [facility] ID Date Data Source [id number] 04/24/2020 08:40:00 AM EDT [facility] Name Value Range Interpretation Code Description Data Amie rce(s) Supporting Document(s) BG FASTING 80 mg/dL 70-100 N [facility] y Health ID Date Data Source [id number] 03/22/2020 12:00:00 AM EDT [facility] Name Value Range Interpretation Code Description Data Amie rce(s) Supporting Document(s) SARS coronavirus 2 RNA [Presence] in Res piratory specimen by JORGE LUIS with probe detection [facility] This lab was ordered by Leatha Patterson and reported by [employer]. Procedure Vital Signs ID Date Data Source [id number] Name Value Range Interpretation Code Description Data Source(s) Systolic blood pressure 111 mm[Hg] 111 mm[Hg] A [facility] ([facility]) Body mass index (BMI) [Ratio] 31.5 kg/m2 31.5 k g/m2 [facility]) Body height 64 [in_i] 64 [in_i] [facility]) Diastolic blood pressure 58 mm[Hg] 58 mm[Hg] [facility] ([facility]) Body weight 2934 [oz_av] 2934 [oz_av] [facility]AA ([facility]) Systolic blood pressure 111 mm[Hg] 111 mm[Hg] A [facility] ([facility]) Body mass index (BMI) [Ratio] 31.5 kg/m2 31.5 k g/m2 [facility]) Body height 64 [in_i] 64 [in_i] [facility]) Diastolic blood pressure 58 mm[Hg] 58 mm[Hg] [facility] ([facility]) Body weight 2934 [oz_av] 2934 [oz_av] [facility] ([facility]) Systolic blood pressure 111 mm[Hg] 111 mm[Hg] A [facility] ([facility]) Body mass index (BMI) [Ratio] 31.5 kg/m2 31.5 k g/m2 [facility] ([facility]) Body height 64 [in_i] 64 [in_i] [facility] ([facility]) Diastolic blood pressure 58 mm[Hg] 58 mm[Hg] [facility] ([facility]) Body weight 2934 [oz_av] 2934 [oz_av] ZAHRAA ([facility]) Systolic blood pressure 111 mm[Hg] 111 mm[Hg] A [facility] ([facility]) Body mass index (BMI) [Ratio] 31.5 kg/m2 31.5 k g/m2 [facility]AHR[facility] ([facility]) Body height 64 [in_i] 64 [in_i] [facility]AHRAA ([facility]) Diastolic blood pressure 58 mm[Hg] 58 mm[Hg] [facility]AHRAA ([facility]) Body weight 2934 [oz_av] 2934 [oz_av] [facility]AHRAA ([facility]) Body weight 2934 [oz_av] 2934 [oz_av] [facility]AHRAA ([facility]) Systolic blood pressure 111 mm[Hg] 111 mm[Hg] A [facility] ([facility]) Body mass index (BMI) [Ratio] 31.5 kg/m2 31.5 k g/m2 [facility]AHR[facility] ([facility]) Body height 64 [in_i] 64 [in_i] [facility]AHRAA ([facility]) Diastolic blood pressure 58 mm[Hg] 58 mm[Hg] [facility]AHRAA ([facility]) Body weight 2656 [oz_av] 2656 [oz_av] [facility]HR[facility] ([facility]) Systolic blood pressure 99 mm[Hg] 99 mm[Hg] A [facility] ([facility]) Body mass index (BMI) [Ratio] 28.5 kg/m2 28.5 k g/m2 [facility]AHRAA ([facility]) Body height 64 [in_i] 64 [in_i] [facility]HRAA ([facility]) Diastolic blood pressure 68 mm[Hg] 68 mm[Hg] [facility]AHRAA ([facility]) Body weight 2656 [oz_av] 2656 [oz_av] [facility]AHRAA ([facility]) Systolic blood pressure 99 mm[Hg] 99 mm[Hg] A THEN ([facility]) Body mass index (BMI) [Ratio] 28.5 kg/m2 28.5 k g/m2 [facility] ([facility]) Body height 64 [in_i] 64 [in_i] [facility]HRAA ([facility]) Diastolic blood pressure 68 mm[Hg] 68 mm[Hg] [facility]AHRAA ([facility]) Body weight 2656 [oz_av] 2656 [oz_av] [facility]AHRAA ([facility]) Systolic blood pressure 99 mm[Hg] 99 mm[Hg] A [facility] ([facility]) Body mass index (BMI) [Ratio] 28.5 kg/m2 28.5 k g/m2 [facility] ([facility]) Body height 64 [in_i] 64 [in_i] [facility] ([facility]) Diastolic blood pressure 68 mm[Hg] 68 mm[Hg] [facility]HRAA ([facility]) Body weight 2656 [oz_av] 2656 [oz_av] [facility] ([facility]) Systolic blood pressure 99 mm[Hg] 99 mm[Hg] A THENA ([facility]) Body mass index (BMI) [Ratio] 28.5 kg/m2 28.5 k g/m2 [facility]AHRAA ([facility]) Body height 64 [in_i] 64 [in_i] [facility]HRAA ([facility]) Diastolic blood pressure 68 mm[Hg] 68 mm[Hg] [facility]HRAA ([facility]) Body weight 2656 [oz_av] 2656 [oz_av] [facility]AHRAA ([facility]) Systolic blood pressure 99 mm[Hg] 99 mm[Hg] A THEN ([facility]) Body mass index (BMI) [Ratio] 28.5 kg/m2 28.5 k g/m2 [facility] ([facility]) Body height 64 [in_i] 64 [in_i] [facility]HRAA ([facility]) Diastolic blood pressure 68 mm[Hg] 68 mm[Hg] [facility]HRAA ([facility]) Body weight 2656 [oz_av] 2656 [oz_av] [facility] ([facility]) Systolic blood pressure 99 mm[Hg] 99 mm[Hg] A THENA ([facility]) Body mass index (BMI) [Ratio] 28.5 kg/m2 28.5 k g/m2 [facility]HRAA ([facility]) Body height 64 [in_i] 64 [in_i] [facility]HRAA ([facility]) Diastolic blood pressure 68 mm[Hg] 68 mm[Hg] [facility]AHRAA ([facility]) Patient Treatment Plan of Care Planned Activity Planned Date Details Description Data Source (s) Pyridoxine Hydrochloride 25 MG Oral Tablet ZAHRAA ([facility]) paroxetine 20 mg tablet ATHE NA ([facility]) Pyridoxine Hydrochloride 25 MG Oral Tablet ZAHRAA ([facility]) paroxetine 20 mg tablet ATHE NA ([facility]) Pyridoxine Hydrochloride 25 MG Oral Tablet ZAHRAA ([facility]) paroxetine 20 mg tablet ATHE NA ([facility]) Pyridoxine Hydrochloride 25 MG Oral Tablet ZAHRAA ([facility]) paroxetine 20 mg tablet ATHE NA ([facility]) Pyridoxine Hydrochloride 25 MG Oral Tablet ZAHRAA ([facility]) paroxetine 20 mg tablet ATHE NA ([facility]) paroxetine 20 mg tablet ATHE NA ([facility])
--- OUTSIDE RECORDS SUMMARY | 2020-11-08 10:38 | CCD ---
Author Author [facility] Organization [facility] Address Unknown Phone Unavailable Care Team Providers Care Commutator Inspector Name Role Phone Jeramie Larkin MD Unavailable Unavailable Jeramie Larkin MD Unavailable Unavailable Jeramie Lakrin MD Unavailable Unavailable Jeramie Larkin MD Unavailable [...] CircChoco pottsishma MD Unavailable Unavailable Bari, Angie ATHLETIC TRAINER ATHLETIC TRAINER Unavailable Unavailable Bari, A Angie ATHLETIC TRAINER Unavailable Unavailable Bari, A Angie ATHLETIC TRAINER Unavailable Unavailable Bari, A Angie ATHLETIC TRAINER Unavailable Unavailable Bari, A Angie ATHLETIC TRAINER Unavailable Unavailable Bari, A Angie ATHLETIC TRAINER Unavailable Unavailable Bari, A Angie ATHLETIC TRAINER Unavailable Unavailable Bari, A Angie ATHLETIC TRAINER Unavailable Unavailable Bari, A Angie ATHLETIC TRAINER Unavailable Unavailable Bari, A Angie ATHLETIC TRAINER Unavailable Unavailable Bari, A Angie ATHLETIC TRAINER Unavailable Unavailable Bari, A Angie ATHLETIC TRAINER Unavailable Unavailable Bari, A Angie ATHLETIC TRAINER Unavailable Unavailable Bari, A Angie ATHLETIC TRAINER Unavailable Unavailable Bari, A Angie ATHLETIC TRAINER Unavailable Unavailable Bari, A Angie ATHLETIC TRAINER Unavailable Unavailable Bari, A Angie ATHLETIC TRAINER Unavailable Unavailable Bari, A Angie ATHLETIC TRAINER Unavailable Unavailable Bari, A Angie ATHLETIC TRAINER Unavailable Unavailable Bari, A Angie ATHLETIC TRAINER Unavailable Unavailable Bari, A Angie ATHLETIC TRAINER Unavailable Unavailable Bari, A Angie ATHLETIC TRAINER Unavailable Unavailable Bari, A Angie ATHLETIC TRAINER Unavailable Unavailable Bari, A Angie ATHLETIC TRAINER Unavailable Unavailable Bari, A Angie ATHLETIC TRAINER Unavailable Unavailable Bari, A Angie ATHLETIC TRAINER Unavailable Unavailable Bari, A Angie ATHLETIC TRAINER Unavailable Unavailable Bari, A Angie ATHLETIC TRAINER Unavailable Unavailable Bari, A Angie ATHLETIC TRAINER Unavailable Unavailable Fostveit, Megan Unavailable Unavailable Fostveit, [...] is protected by Article 27-F of the [facility] Public Health law. If you continue you may have access to information: Regarding HIV / AIDS; Provided by facilities licensed or operated by the [facility] Office of Mental Health; or Provided by the [facility] Office for People With Developmental Disabilities. If such information is present, then the following [facility] mandated warning applies: This information has [...] law may result in a fine or [place] health care facility sentence or both. A general authorization for the release of medical or other information is NOT sufficient authorization for further disc losure. Encounters Encounter Providers Location Date Indications Data Source(s ) WILLIAM GrahamR: Delano Richards, [facility] [address], [place] [address], Ph. Attender: Megan Euceda [place] - [facility] Medical 11/05/2020 12:00:00 AM EST ZHARAA ([facility]) Megan Colon, [facility]: [address], [place] [address], Ph. Attender: Megan Euceda [facility] - [facility] Medical 10/22/2020 12:00:00 AM EST ZAHRAA ([facility]) ANGELA GrahamW-R: [address], [address], [place] [address], Ph. Attender: Megan Euceda [facility] Medical 10/22/2020 12:00:00 AM EST ZAHRAA ([facility]) Adrian Larkin MD: [address] [place] [address], Ph. Attender: Adrian Larkin MD [facility] Medical 10/21/2020 12:00:00 AM EST ZAHRAA ([facility]) Adrian Larkin MD: [address] [place] [address], Ph. Attender: Adrian Larkin MD [facility] Medical 10/21/2020 12:00:00 AM EST ZAHRAA ([facility]) Adrian Larkin MD: [address] [place] [address], Ph. Attender: Adrian Larkin MD [facility] Medical 10/21/2020 12:00:00 AM EST ZAHRAA ([facility]) ANGELA GrahamW-R: [address], [place] [address], Ph. Attender: Megan Euceda [facility] Medical 10/13/2020 12:00:00 AM EST ZAHRAA ([facility]) ANGELA GrahamW-R: [address], [place] [address], Ph. Attender: Megan Euceda [facility] Medical 10/13/2020 12:00:00 AM EST ZAHRAA ([facility]) Megan Colon LCSW-R: [address], [place] [address], Ph. Attender: Megan Wolffoscar [facility] Medical 10/13/2020 12:00:00 AM EST ZAHRAA ([facility]) Megan Colon LCSW-R: [address], [place] [address], Ph. Attender: Megan Euceda [facility] Medical 10/13/2020 12:00:00 AM EST ZAHRAA ([facility]) Gina Chris PA-C: [address], [place] [address], Ph. Attender: Gina [facility] Medical 10/06/2020 12:00:00 AM EST ZAHRAA ([facility]) Gina Chris PA-C: [address], [place] [address], Ph. Attender: Gina [facility] Medical 10/06/2020 12:00:00 AM EST ZAHRAA ([facility]) Gina Chris PA-C: [address], [place] [address], Ph. Attender: Gina [facility] Medical 10/06/2020 12:00:00 AM EST ZAHRAA ([facility]) Gina Chris PA-C: [address], [place] [address], Ph. Attender: Gina [facility] Medical 10/06/2020 12:00:00 AM EST ZAHRAA ([facility]) Gina Chris PA-C: [address], [place] [address], Ph. Attender: Gina [facility] Medical 10/06/2020 12:00:00 AM EST ZAHRAA ([facility]) Gina Chris PA-C: [address], [place] [address], Ph. Attender: Gina [facility] Medical 08/25/2020 12:00:00 AM EST ZAHRAA ([facility]) Gina Chris PA-C: [address], [place] [address], Ph. Attender: Gina [facility] Medical 08/25/2020 12:00:00 AM EST ZAHRAA ([facility]) Gina Chris PA-C: [address], [place] [address], Ph. Attender: Gina [facility] Medical 08/25/2020 12:00:00 AM EST ZAHRAA ([facility]) Gina Chris PA-C: [address], [place] [address], Ph. Attender: Gina [facility] Medical 08/25/2020 12:00:00 AM EST ZAHRAA ([facility]) Gina Chris PA-C: [address], [place] [address], Ph. Attender: Gina [facility] Medical 08/25/2020 12:00:00 AM EST ZAHRAA ([facility]) Gina Chris PA-C: [address] [place] [address], Ph. Attender: Gina FLEMING - [facility] - [facility] 08/25/2020 12:00:00 AM EST ZAHRAA ([facility]) Outpatient Attender: ATHLETIC TRAINER Bari [facility] 08/12/2020 01:24:00 [facility] Outpatient Attender: ATHLETIC TRAINER Bari [facility] 08/12/2020 01:09:01 P M EST [facility] Outpatient Attender: ATHLETIC TRAINER Bari [facility] 08/12/2020 01:08:00 [facility] Outpatient Attender: ATHLETIC TRAINER Bari [facility] 08/12/2020 01:06:01 [facility] Outpatient Attender: HUMBLE Candelaria [facility] 04/29/2020 05:19:01 A M EDT [facility] Outpatient Attender: Angie Candelaria [facility] 04/29/2020 05:1 9:00 AM EDT [facility] Outpatient Attender: HUMBLE Candelaria [facility] 04/28/2020 09:51:01 A M EDT [facility] Outpatient [facility] 04/15/2020 12:02:13 AM EDT [facility] 04/14/2020 12:07:01 PM EDT [facility]patient [facility] 04/14/2020 12:02:00 PM EDT [facility] 09/17/2019 02:47:39 PM EST [facility] Attender: Briseyda Clements MD 2E-EU 07/20/2019 10:39 :58 AM EDT [facility] Medications Medication Brand Name Start Date Product Form Dose Route Admi nistrative Instructions Pharmacy Instructions Status Indications Reaction Description Data Source(s) Pyridoxine Hydrochloride 25 MG Oral Tablet Vitamin B-6 25 mg tablet Vitamin B-6 25 mg tablet completed p yridoxine hydrochloride 25 MG Oral Tablet ZAHRAA ([facility]) Pyridoxine Hydrochloride 25 MG Oral Tablet Vitamin B-6 25 mg tablet Vitamin B-6 25 mg tablet completed p yridoxine hydrochloride 25 MG Oral Tablet ZAHRAA ([facility]) paroxetine 20 mg tablet [id number] complet ed paroxetine hydrochloride 20 MG Oral Tablet ZAHRAA ([facility]) Pyridoxine Hydrochloride 25 MG Oral Tablet Vitamin B-6 25 mg tablet Vitamin B-6 25 mg tablet completed p yridoxine hydrochloride 25 MG Oral Tablet ZAHRAA ([facility]) Pyridoxine Hydrochloride 25 MG Oral Tablet Vitamin B-6 25 mg tablet Vitamin B-6 25 mg tablet completed p yridoxine hydrochloride 25 MG Oral Tablet ZAHRAA ([facility]) paroxetine 20 mg tablet 221248 complet ed paroxetine hydrochloride 20 MG Oral Tablet [facility]HRAA ([facility]) paroxetine 20 mg tablet 795300 complet ed paroxetine hydrochloride 20 MG Oral Tablet [facility]AHRAA ([facility]) paroxetine 20 mg tablet 782643 complet ed paroxetine hydrochloride 20 MG Oral Tablet [facility]AHRAA ([facility]) paroxetine 20 mg tablet 350286 complet ed paroxetine hydrochloride 20 MG Oral Tablet ZAHRAA ([facility]) Pyridoxine Hydrochloride 25 MG Oral Tablet Vitamin B-6 25 mg tablet Vitamin B-6 25 mg tablet completed p yridoxine hydrochloride 25 MG Oral Tablet ZAHRAA ([facility]) paroxetine 20 mg tablet 883200 complet ed paroxetine hydrochloride 20 MG Oral Tablet ZAHRAA ([facility]) Insurance Providers Payer name Policy type / Coverage type Policy ID Covered democrat ID Covered democrat's relationship to kilgore Policy Kilgore Plan Information MANUEL [id number] SP [id number] 900 MANUEL [facility] O [id number] O [id number] Managed Care [place] P UNAVAILABLE S UNAVAILABLE Medicaid S UNAVAILABLE S UNAVAILA BLE MANUEL [id number] SP [id number] MANUEL [id number] SP [id number] MANUEL [id number] Self [id number] MANUEL [id number] [place] Individual Policy 0 Self 0 MANUEL [id number] Patient [id number] De [place] Individual Policy 0 Self 0 De [place] Individual Policy 0 Self 0 Manuel [place] Individual Policy 0 Self 0 De [place] Individual Policy 0 Self 0 De [place] Individual Policy 0 Self 0 Manuel [place] Individual Policy 0 Self 0 [place] Other 0 Self 0 MEDICAID [id number] Patient [id number] [place] of [place] Other 0 Self 0 [place] of [place] Other 0 Self 0 COMM MISSING INFO MISSING Patient [place] SSING [facility] MEDICAID [id number] Patient [id number] Medicaid [facility] Other 0 Self 0 Problems, Conditions, and Diagnoses Code Display Name Description Problem Type Effective Dates Data Source(s) 02545207 Allergic rhinitis Allergic Rhinitis Problem 08/25/2020 12:00:00 AM EST [facility]HRAA ([facility]) 53625401 Depressive disorder Depressive Disorder Problem 1 10/25/2019 12:00:00 AM EST [facility]AHRAA ([facility]) 47527308 Allergic rhinitis Allergic Rhinitis Problem 08/25/2020 12:00:00 AM EST [facility]HRAA ([facility]) 63462017 Depressive disorder Depressive Disorder Problem 1 10/25/2019 12:00:00 AM EST ZAHRAA ([facility]) [id number] Allergic rhinitis Allergic Rhinitis Problem 08/25/2020 12:00:00 AM EST [facility]AHRAA ([facility]) 52067999 Depressive disorder Depressive Disorder Problem 1 10/25/2019 12:00:00 AM EST ZAHRAA ([facility]) 65416174 Allergic rhinitis Allergic Rhinitis Problem 08/25/2020 12:00:00 AM EST [facility]AHRAA ([facility]) 83180335 Depressive disorder Depressive Disorder Problem 1 10/25/2019 12:00:00 AM EST ZAHRAA ([facility]) 41002392 Allergic rhinitis Allergic Rhinitis Problem 08/25/2020 12:00:00 AM EST [facility]HRAA ([facility]) [id number] Depressive disorder Depressive Disorder Problem 1 10/25/2019 12:00:00 AM EST [facility]AHRAA ([facility]) 00134548 Allergic rhinitis Allergic Rhinitis Problem 08/25/2020 12:00:00 AM EST [facility]HRAA ([facility]) 83240702 Depressive disorder Depressive Disorder Problem 1 10/25/2019 12:00:00 AM EST ZAHRAA ([facility]) Results ID Date Data Source [id number] 10/21/2020 01:51:00 PM EST ZAHRAA ([facility]) Name Value Range Interpretation Code Description Data Amie rce(s) Supporting Document(s) Hemoglobin A1c/Hemoglobin.total in Blood Hba1C LA JOYA ([facility]) ID Date Data Source [id number] 10/21/2020 01:51:00 PM EST ZAHRAA ([facility]) Name Value Range Interpretation Code Description Data Amie rce(s) Supporting Document(s) Hemoglobin A1c/Hemoglobin.total in Blood Hba1C LA JOYA ([facility]) ID Date Data Source [id number] 10/21/2020 09:50:00 AM EST ZAHRAA ([facility]) Name Value Range Interpretation Code Description Data Amie rce(s) Supporting Document(s) ferritin 13 NG/mL 8-252 normal Ferritin [facility]) ID Date Data Source [id number] 10/21/2020 09:50:00 AM EST LA JOYA ([facility]) Name Value Range Interpretation Code Description Data Amie rce(s) Supporting Document(s) iron (fe) 102 ug/dL 50-170 normal Iron (Fe) LA JOYA ([facility]) total iron binding capacity 483 ug/dL 250-450 Above high no rmal Total Iron Binding Capacity LA JOYA ([facility]) percent saturation 21.1 % 13.2-45.0 normal Percent Saturatio n LA JOYA ([facility]) ID Date Data Source [id number] 10/21/2020 09:50:00 AM EST LA JOYA ([facility]) Name Value Range Interpretation Code Description Data Amie rce(s) Supporting Document(s) white blood count 14.7 10 4.0-10.0 Above high normal White Blood Count LA JOYA ([facility]) red blood count 3.84 10 4.00-5.40 Below low normal Red Blood Coun t LA JOYA ([facility]) hemoglobin 11.7 g/dL 12.0-15.5 Below low normal Hemoglobin ZAHRAA ( [facility]) hematocrit 36.1 % 36.0-47.0 normal Hematocrit ZAHRAA ([facility]) mean corpuscular volume 94.0 fL 80.0-96.0 normal Mean Corpusc ular Volume ZAHRAA ([facility]) mean corpuscular HGB conc 32.4 g/dL 32.0-36.5 normal Mean Corpu scular HGB Conc ZAHRAA ([facility]) mean corpuscular hemoglobin 30.5 pg 27.0-33.0 normal Mean Corpuscular Hemoglobin ZAHRAA ([facility]) red cell distribution width 13.4 % 11.5-14.5 normal Red Cell Distribution Width ZAHRAA ([facility]) neutrophils % 72.9 % 36.0-66.0 Above high normal Neutrophils % A [facility] ([facility]) platelet count, automated 225 10 150-450 normal Platelet C ount, Automated LA JOYA ([facility]) lymph % 17.1 % 24.0-44.0 Below low normal Lymph % ZAHRAA ( [facility]) eos % 0.4 % 0.0-3.0 normal Eos % ZAHRAA ([facility]) mono % 8.4 % 0.0-5.0 Above high normal [place] % ZAHRAA ([facility]) baso % 0.2 % 0.0-1.0 normal Baso % ZAHRAA ([facility]) immature granulocyte % 1.0 % 0-3.0 normal Immature Gran ulocyte % ZAHRAA ([facility]) nucleated red blood cell % 0.0 % 0-0 normal Nucleated Red Blood Cell % ZAHRAA ([facility]) neutrophils # 10.7 10 1.5-8.5 Above high normal Neutrophils # A THENA ([facility]) lymph # 2.5 10 1.5-5.0 normal Lymph # LA JOYA ([facility]) eos # 0.1 10 0.0-0.5 normal Eos # ZAHRAA ([facility]) mono # 1.2 10 0.0-0.8 Above high normal [place] # ZAHRAA ([facility]) baso # 0.0 10 0.0-0.2 normal Baso # ZAHRAA ([facility]) ID Date Data Source [id number] 10/21/2020 09:50:00 AM EST ZAHRAA ([facility]) Name Value Range Interpretation Code Description Data Amie rce(s) Supporting Document(s) ferritin 13 NG/mL 8-252 normal Ferritin ZAHRAA ([facility]) ID Date Data Source [id number] 10/21/2020 09:50:00 AM EST ZAHRAA ([facility]) Name Value Range Interpretation Code Description Data Amie rce(s) Supporting Document(s) total iron binding capacity 483 ug/dL 250-450 Above high no rmal Total Iron Binding Capacity ZAHRAA ([facility]) iron (fe) 102 ug/dL 50-170 normal Iron (Fe) LA JOYA ([facility]) percent saturation 21.1 % 13.2-45.0 normal Percent Saturatio n ZAHRAA ([facility]) ID Date Data Source [id number] 10/21/2020 09:50:00 AM EST ZAHRAA ([facility]) Name Value Range Interpretation Code Description Data Amie rce(s) Supporting Document(s) white blood count 14.7 10 4.0-10.0 Above high normal White Blood Count ZAHRAA ([facility]) hemoglobin 11.7 g/dL 12.0-15.5 Below low normal Hemoglobin ZAHRAA ( [facility]) red blood count 3.84 10 4.00-5.40 Below low normal Red Blood Coun t ZAHRAA ([facility]) hematocrit 36.1 % 36.0-47.0 normal Hematocrit ZAHRAA ([facility]) mean corpuscular hemoglobin 30.5 pg 27.0-33.0 normal Mean Corpuscular Hemoglobin ZAHRAA ([facility]) mean corpuscular HGB conc 32.4 g/dL 32.0-36.5 normal Mean Corpu scular HGB Conc ZAHRAA ([facility]) mean corpuscular volume 94.0 fL 80.0-96.0 normal Mean Corpusc ular Volume ZAHRAA ([facility]) platelet count, automated 225 10 150-450 normal Platelet C ount, Automated ZAHRAA ([facility]) neutrophils % 72.9 % 36.0-66.0 Above high normal Neutrophils % A [facility] ([facility]) red cell distribution width 13.4 % 11.5-14.5 normal Red Cell Distribution Width ZAHRAA ([facility]) eos % 0.4 % 0.0-3.0 normal Eos % [facility]AHRAA ([facility]) mono % 8.4 % 0.0-5.0 Above high normal [place] % [place] JO[facility] ([facility]) lymph % 17.1 % 24.0-44.0 Below low normal Lymph % ZAHRAA ( [facility]) nucleated red blood cell % 0.0 % 0-0 normal Nucleated Red Blood Cell % [facility]AHRAA ([facility]) immature granulocyte % 1.0 % 0-3.0 normal Immature Gran ulocyte % ZAHRAA ([facility]) baso % 0.2 % 0.0-1.0 normal Baso % [facility]AHRAA ([facility]) neutrophils # 10.7 10 1.5-8.5 Above high normal Neutrophils # [facility] lymph # 2.5 10 1.5-5.0 normal Lymph # ZAHRAA ([facility]) eos # 0.1 10 0.0-0.5 normal Eos # ZAHRAA ([facility]) mono # 1.2 10 0.0-0.8 Above high normal [place] # ZAHRAA ([facility]) baso # 0.0 10 0.0-0.2 normal Baso # ZAHRAA ([facility]) ID Date Data Source [id number] 10/06/2020 01:40:00 PM EST LA JOYA ([facility]) Name Value Range Interpretation Code Description Data Amie rce(s) Supporting Document(s) thyroid stimulating hormone 0.921 uIU/mL 0.358-3.740 normal Thyroid Stimulating Hormone LA JOYA ([facility]) ID Date Data Source [id number] 10/06/2020 01:40:00 PM EST ZAHRAA ([facility]) Name Value Range Interpretation Code Description Data Amie rce(s) Supporting Document(s) glucose, fasting 104 mg/dL 70-100 Above high normal Glucose, Fas ting ZAHRAA ([facility]) creatinine for GFR 0.57 mg/dL 0.55-1.30 normal Creatinine for GF R [place] JOYA ([facility]) glomerular filtration rate > 60.0 >60 normal Glomerula r Filtration Rate ZAHRAA ([facility]) blood urea nitrogen 7 mg/dL 7-18 normal Blood Urea Nitro gen ZAHRAA ([facility]) sodium level 139 mEq/L 136-145 normal Sodium Level LA JOYA (No [facility]) potassium serum 4.1 mEq/L 3.5-5.1 normal Potassium Serum ATHE ([facility]) carbon dioxide level 27 mEq/L 21-32 normal Carbon Dioxide Level LA JOYA ([facility]) chloride level 106 mEq/L 98-107 normal Chloride Level ZAHRAA ([facility]) anion gap 6 mEq/L 8-16 Below low normal Anion Gap LA JOYA ( [facility]) AST/SGOT 4 U/L 7-37 Below low normal AST/SGOT ZAHRAA ( [facility]) calcium level 8.6 mg/dL 8.5-10.1 normal Calcium Level ZAHRAA ( [facility]) ALT/SGPT 12 U/L 12-78 normal ALT/SGPT ZAHRAA ([facility]) alkaline phosphatase 76 U/L 45-117 normal Alkaline Phosph atase LA JOYA ([facility]) total protein 6.3 gm/dL 6.4-8.2 Below low normal Total Protein AT CHRIST[facility]O [facility]) bilirubin,total 0.3 mg/dL 0.2-1.0 normal Bilirubin,total [facility] albumin 2.5 gm/dL 3.2-5.2 Below low normal Albumin LA JOYA ( [facility]) albumin/globulin ratio 1.2-2.2 Below low normal Albumin /globulin Ratio ZAHRAA ([facility]) ID Date Data Source [id number] 10/06/2020 01:40:00 PM EST ZAHRAA ([facility]) Name Value Range Interpretation Code Description Data Amie rce(s) Supporting Document(s) white blood count 13.3 10 4.0-10.0 Above high normal White Blood Count [facility]AHRAA ([facility]) red blood count 3.91 10 4.00-5.40 Below low normal Red Blood Coun t [facility]AHRAA ([facility]) hemoglobin 11.5 g/dL 12.0-15.5 Below low normal Hemoglobin [facility]AHRAA ( [facility]) hematocrit 36.9 % 36.0-47.0 normal Hematocrit [facility]AHRAA ([facility]) mean corpuscular hemoglobin 29.4 pg 27.0-33.0 normal Mean Corpuscular Hemoglobin [facility]HRAA ([facility]) mean corpuscular volume 94.4 fL 80.0-96.0 normal Mean Corpusc ular Volume [facility]AHRAA ([facility]) mean corpuscular HGB conc 31.2 g/dL 32.0-36.5 Below low shaq l Mean Corpuscular HGB Conc [place] JOYA ([facility]) red cell distribution width 13.2 % 11.5-14.5 normal Red Cell Distribution Width [facility]AHRAA ([facility]) platelet count, automated 236 10 150-450 normal Platelet C ount, Automated [facility]HRAA ([facility]) neutrophils % 74.2 % 36.0-66.0 Above high normal Neutrophils % A [facility] ([facility]) lymph % 17.2 % 24.0-44.0 Below low normal Lymph % [facility] ( [facility]) mono % 7.3 % 0.0-5.0 Above high normal [place] % [facility] ([facility]) eos % 0.4 % 0.0-3.0 normal Eos % [facility] ([facility]) baso % 0.2 % 0.0-1.0 normal Baso % [facility] ([facility]) nucleated red blood cell % 0.0 % 0-0 normal Nucleated Red Blood Cell % ZAHRAA ([facility]) immature granulocyte % 0.7 % 0-3.0 normal Immature Gran ulocyte % [facility]HRAA ([facility]) lymph # 2.3 10 1.5-5.0 normal Lymph # [facility]HRAA ([facility]) neutrophils # 9.9 10 1.5-8.5 Above high normal Neutrophils # A THENA ([facility]) mono # 1.0 10 0.0-0.8 Above high normal [place] # [facility]HRAA ([facility]) eos # 0.1 10 0.0-0.5 normal Eos # [facility] ([facility]) baso # 0.0 10 0.0-0.2 normal Baso # [facility] ([facility]) ID Date Data Source [id number] 10/06/2020 01:40:00 PM EST [facility]HRAA ([facility]) Name Value Range Interpretation Code Description Data Amie rce(s) Supporting Document(s) thyroid stimulating hormone 0.921 uIU/mL 0.358-3.740 normal Thyroid Stimulating Hormone LA JOYA ([facility]) ID Date Data Source [id number] 10/06/2020 01:40:00 PM EST [facility]AA ([facility]) Name Value Range Interpretation Code Description Data Amie rce(s) Supporting Document(s) glucose, fasting 104 mg/dL 70-100 Above high normal Glucose, Fas ting LA JOYA ([facility]) blood urea nitrogen 7 mg/dL 7-18 normal Blood Urea Nitro gen [facility]AHRAA ([facility]) creatinine for GFR 0.57 mg/dL 0.55-1.30 normal Creatinine for GF R LA JOYA ([facility]) potassium serum 4.1 mEq/L 3.5-5.1 normal Potassium Serum ATH NA ([facility]) sodium level 139 mEq/L 136-145 normal Sodium Level ZAHRAA (No [facility]) glomerular filtration rate > 60.0 >60 normal Glomerula r Filtration Rate ZAHRAA ([facility]) anion gap 6 mEq/L 8-16 Below low normal Anion Gap ZAHRAA ( [facility]) carbon dioxide level 27 mEq/L 21-32 normal Carbon Dioxide Level ZAHRAA ([facility]) chloride level 106 mEq/L 98-107 normal Chloride Level ZAHRAA ([facility]) calcium level 8.6 mg/dL 8.5-10.1 normal Calcium Level ZAHRAA ( [facility]) total protein 6.3 gm/dL 6.4-8.2 Below low normal Total Protein AT [facility] ([facility]) AST/SGOT 4 U/L 7-37 Below low normal AST/SGOT ZAHRAA ( [facility]) bilirubin,total 0.3 mg/dL 0.2-1.0 normal Bilirubin,total ATHE ([facility]) alkaline phosphatase 76 U/L 45-117 normal Alkaline Phosph atase [facility]AHRAA ([facility]) ALT/SGPT 12 U/L 12-78 normal ALT/SGPT [facility]AA ([facility]) albumin 2.5 gm/dL 3.2-5.2 Below low normal Albumin ZAHRAA ( [facility]) albumin/globulin ratio 1.2-2.2 Below low normal Albumin /globulin Ratio LA JOYA ([facility]) ID Date Data Source [id number] 10/06/2020 01:40:00 PM EST LA JOYA ([facility]) Name Value Range Interpretation Code Description Data Amie rce(s) Supporting Document(s) red blood count 3.91 10 4.00-5.40 Below low normal Red Blood Coun t [facility]AHRAA ([facility]) hemoglobin 11.5 g/dL 12.0-15.5 Below low normal Hemoglobin ZAHRAA ( [facility]) white blood count 13.3 10 4.0-10.0 Above high normal White Blood Count [facility]AA ([facility]) mean corpuscular volume 94.4 fL 80.0-96.0 normal Mean Corpusc ular Volume [facility]AHRAA ([facility]) mean corpuscular HGB conc 31.2 g/dL 32.0-36.5 Below low shaq l Mean Corpuscular HGB Conc [facility]HRAA ([facility]) mean corpuscular hemoglobin 29.4 pg 27.0-33.0 normal Mean Corpuscular Hemoglobin [facility]HRAA ([facility]) hematocrit 36.9 % 36.0-47.0 normal Hematocrit [facility]AA ([facility]) platelet count, automated 236 10 150-450 normal Platelet C ount, Automated [facility]AA ([facility]) red cell distribution width 13.2 % 11.5-14.5 normal Red Cell Distribution Width [facility]AA ([facility]) lymph % 17.2 % 24.0-44.0 Below low normal Lymph % [facility]HRAA ( [facility]) neutrophils % 74.2 % 36.0-66.0 Above high normal Neutrophils % A [facility] ([facility]) eos % 0.4 % 0.0-3.0 normal Eos % [facility]HRAA ([facility]) mono % 7.3 % 0.0-5.0 Above high normal [place] % [facility]AHRAA ([facility]) baso % 0.2 % 0.0-1.0 normal Baso % [facility]AA ([facility]) immature granulocyte % 0.7 % 0-3.0 normal Immature Gran ulocyte % [facility]AHRAA ([facility]) nucleated red blood cell % 0.0 % 0-0 normal Nucleated Red Blood Cell % [facility]HRAA ([facility]) mono # 1.0 10 0.0-0.8 Above high normal [place] # ZAHRAA ([facility]) neutrophils # 9.9 10 1.5-8.5 Above high normal Neutrophils # A THENA ([facility]) lymph # 2.3 10 1.5-5.0 normal Lymph # [facility]AHRAA ([facility]) baso # 0.0 10 0.0-0.2 normal Baso # [facility]AHRAA ([facility]) eos # 0.1 10 0.0-0.5 normal Eos # [facility]HRAA ([facility]) ID Date Data Source [id number] 10/06/2020 01:40:00 PM EST [facility]AA ([facility]) Name Value Range Interpretation Code Description Data Amie rce(s) Supporting Document(s) thyroid stimulating hormone 0.921 uIU/mL 0.358-3.740 normal Thyroid Stimulating Hormone LA JOYA ([facility]) ID Date Data Source [id number] 10/06/2020 01:40:00 PM EST LA JOYA ([facility]) Name Value Range Interpretation Code Description Data Amie rce(s) Supporting Document(s) glucose, fasting 104 mg/dL 70-100 Above high normal Glucose, Fas ting ZAHRAA ([facility]) glomerular filtration rate > 60.0 >60 normal Glomerula r Filtration Rate LA JOYA ([facility]) blood urea nitrogen 7 mg/dL 7-18 normal Blood Urea Nitro gen LA JOYA ([facility]) creatinine for GFR 0.57 mg/dL 0.55-1.30 normal Creatinine for GF R LA JOYA ([facility]) anion gap 6 mEq/L 8-16 Below low normal Anion Gap LA JOYA ( [facility]) potassium serum 4.1 mEq/L 3.5-5.1 normal Potassium Serum ATH NA ([facility]) chloride level 106 mEq/L 98-107 normal Chloride Level LA JOYA ([facility]) carbon dioxide level 27 mEq/L 21-32 normal Carbon Dioxide Level LA JOYA ([facility]) sodium level 139 mEq/L 136-145 normal Sodium Level LA JOYA (No [facility]) alkaline phosphatase 76 U/L 45-117 normal Alkaline Phosph atase LA JOYA ([facility]) calcium level 8.6 mg/dL 8.5-10.1 normal Calcium Level LA JOYA ( [facility]) ALT/SGPT 12 U/L 12-78 normal ALT/SGPT LA JOYA ([facility]) AST/SGOT 4 U/L 7-37 Below low normal AST/SGOT LA JOYA ( [facility]) albumin 2.5 gm/dL 3.2-5.2 Below low normal Albumin LA JOYA ( [facility]) total protein 6.3 gm/dL 6.4-8.2 Below low normal Total Protein AT [facility]) albumin/globulin ratio 1.2-2.2 Below low normal Albumin /globulin Ratio ZAHRAA ([facility]) bilirubin,total 0.3 mg/dL 0.2-1.0 normal Bilirubin,total ATHE NA ([facility]) ID Date Data Source [id number] 10/06/2020 01:40:00 PM EST ZAHRAA ([facility]) Name Value Range Interpretation Code Description Data Amie rce(s) Supporting Document(s) red blood count 3.91 10 4.00-5.40 Below low normal Red Blood Coun t ZAHRAA ([facility]) hemoglobin 11.5 g/dL 12.0-15.5 Below low normal Hemoglobin LA JOYA ( [facility]) white blood count 13.3 10 4.0-10.0 Above high normal White Blood Count LA JOYA ([facility]) hematocrit 36.9 % 36.0-47.0 normal Hematocrit LA JOYA ([facility]) mean corpuscular hemoglobin 29.4 pg 27.0-33.0 normal Mean Corpuscular Hemoglobin ZAHRAA ([facility]) mean corpuscular volume 94.4 fL 80.0-96.0 normal Mean Corpusc ular Volume LA JOYA ([facility]) mean corpuscular HGB conc 31.2 g/dL 32.0-36.5 Below low shaq l Mean Corpuscular HGB Conc LA JOYA ([facility]) red cell distribution width 13.2 % 11.5-14.5 normal Red Cell Distribution Width [facility]AHRAA ([facility]) lymph % 17.2 % 24.0-44.0 Below low normal Lymph % [facility]AHRAA ( [facility]) mono % 7.3 % 0.0-5.0 Above high normal [place] % ZAHRAA ([facility]) platelet count, automated 236 10 150-450 normal Platelet C ount, Automated ZAHRAA ([facility]) neutrophils % 74.2 % 36.0-66.0 Above high normal Neutrophils % A THENA ([facility]) nucleated red blood cell % 0.0 % 0-0 normal Nucleated Red Blood Cell % [facility]AHRAA ([facility]) eos % 0.4 % 0.0-3.0 normal Eos % [facility]HRAA ([facility]) immature granulocyte % 0.7 % 0-3.0 normal Immature Gran ulocyte % [facility]AHRAA ([facility]) baso % 0.2 % 0.0-1.0 normal Baso % [facility]AHRAA ([facility]) lymph # 2.3 10 1.5-5.0 normal Lymph # ZAHRAA ([facility]) mono # 1.0 10 0.0-0.8 Above high normal [place] # ZAHRAA ([facility]) neutrophils # 9.9 10 1.5-8.5 Above high normal Neutrophils # A THENA ([facility]) eos # 0.1 10 0.0-0.5 normal Eos # [facility]AHRAA ([facility]) baso # 0.0 10 0.0-0.2 normal Baso # [facility]AHRAA ([facility]) ID Date Data Source [id number] 10/06/2020 01:40:00 PM EST LA JOYA ([facility]) Name Value Range Interpretation Code Description Data Amie rce(s) Supporting Document(s) thyroid stimulating hormone 0.921 uIU/mL 0.358-3.740 normal Thyroid Stimulating Hormone LA JOYA ([facility]) ID Date Data Source [id number] 10/06/2020 01:40:00 PM EST LA JOYA ([facility]) Name Value Range Interpretation Code Description Data Amie rce(s) Supporting Document(s) glomerular filtration rate > 60.0 >60 normal Glomerula r Filtration Rate LA JOYA ([facility]) creatinine for GFR 0.57 mg/dL 0.55-1.30 normal Creatinine for GF R LA JOYA ([facility]) glucose, fasting 104 mg/dL 70-100 Above high normal Glucose, Fas ting LA JOYA ([facility]) blood urea nitrogen 7 mg/dL 7-18 normal Blood Urea Nitro gen LA JOYA ([facility]) carbon dioxide level 27 mEq/L 21-32 normal Carbon Dioxide Level LA JOYA ([facility]) potassium serum 4.1 mEq/L 3.5-5.1 normal Potassium Serum ATHE NA ([facility]) chloride level 106 mEq/L 98-107 normal Chloride Level ZAHRAA ([facility]) anion gap 6 mEq/L 8-16 Below low normal Anion Gap ZAHRAA ( [facility]) sodium level 139 mEq/L 136-145 normal Sodium Level [facility]AHRAA ([facility]) AST/SGOT 4 U/L 7-37 Below low normal AST/SGOT ZAHRAA ( [facility]) bilirubin,total 0.3 mg/dL 0.2-1.0 normal Bilirubin,total ATHE NA ([facility]) calcium level 8.6 mg/dL 8.5-10.1 normal Calcium Level ZAHRAA ( [facility]) alkaline phosphatase 76 U/L 45-117 normal Alkaline Phosph atase ZAHRAA ([facility]) ALT/SGPT 12 U/L 12-78 normal ALT/SGPT ZAHRAA ([facility]) total protein 6.3 gm/dL 6.4-8.2 Below low normal Total Protein AT [facility] ([facility]) albumin 2.5 gm/dL 3.2-5.2 Below low normal Albumin ZAHRAA ( [facility]) albumin/globulin ratio 1.2-2.2 Below low normal Albumin /globulin Ratio LA JOYA ([facility]) ID Date Data Source [id number] 04/24/2020 08:40:00 AM EDT [facility] Name Value Range Interpretation Code Description Data Amie rce(s) Supporting Document(s) HCT 40.5 % 36.0-47.0 N [facility] HGB 12.9 g/dL 12.0-15.5 N [facility] MCH 31.9 G/DL pg 32.0-36.5 L [facility] MCHC 28.2 PG % 27.0-33.0 N [facility] PLATELETS 257 10 10*3/mm3 150-450 N [facility] RBC 4.58 10 10*6/mm3 4.00-5.40 N [facility] RDW 13.3 % 11.5-14.5 N [facility] WBC TOTAL 8.2 4.0-10.0 N [facility] ID Date Data Source [id number] 04/24/2020 08:40:00 AM EDT [facility] Name Value Range Interpretation Code Description Data Amie rce(s) Supporting Document(s) BG FASTING 80 mg/dL 70-100 N [facility] ID Date Data Source [id number] 03/22/2020 12:00:00 AM EDT [facility] Name Value Range Interpretation Code Description Data Amie rce(s) Supporting Document(s) SARS coronavirus 2 RNA [Presence] in Res piratory specimen by JORGE LUIS with probe detection [facility] This lab was ordered by Leatha Patterson and reported by [employer]. Procedure Vital Signs ID Date Data Source [id number] Name Value Range Interpretation Code Description Data Source(s) Systolic blood pressure 111 mm[Hg] 111 mm[Hg] A [facility] ([facility]) Body mass index (BMI) [Ratio] 31.5 kg/m2 31.5 k g/m2 [facility]) Body height 64 [in_i] 64 [in_i] [facility]) Diastolic blood pressure 58 mm[Hg] 58 mm[Hg] [facility] ([facility]) Body weight 2934 [oz_av] 2934 [oz_av] ZAHRAA ([facility]) Systolic blood pressure 111 mm[Hg] 111 mm[Hg] A [facility] ([facility]) Body mass index (BMI) [Ratio] 31.5 kg/m2 31.5 k g/m2 [facility]) Body height 64 [in_i] 64 [in_i] [facility]) Diastolic blood pressure 58 mm[Hg] 58 mm[Hg] LA JOYA ([facility]) Body weight 2934 [oz_av] 2934 [oz_av] ZAHRAA ([facility]) Systolic blood pressure 111 mm[Hg] 111 mm[Hg] A [facility] ([facility]) Body mass index (BMI) [Ratio] 31.5 kg/m2 31.5 k g/m2 [facility] ([facility]) Body height 64 [in_i] 64 [in_i] [facility]AA ([facility]) Diastolic blood pressure 58 mm[Hg] 58 mm[Hg] [facility]AA ([facility]) Body weight 2934 [oz_av] 2934 [oz_av] [facility]HRAA ([facility]) Systolic blood pressure 111 mm[Hg] 111 mm[Hg] A [facility] ([facility]) Body mass index (BMI) [Ratio] 31.5 kg/m2 31.5 k g/m2 [facility] ([facility]) Body height 64 [in_i] 64 [in_i] [facility] ([facility]) Diastolic blood pressure 58 mm[Hg] 58 mm[Hg] [facility]AA ([facility]) Body weight 2934 [oz_av] 2934 [oz_av] [facility]AA ([facility]) Body weight 2934 [oz_av] 2934 [oz_av] [facility]AA ([facility]) Systolic blood pressure 111 mm[Hg] 111 mm[Hg] A [facility] ([facility]) Body mass index (BMI) [Ratio] 31.5 kg/m2 31.5 k g/m2 [facility] ([facility]) Body height 64 [in_i] 64 [in_i] [facility] ([facility]) Diastolic blood pressure 58 mm[Hg] 58 mm[Hg] [facility] ([facility]) Body weight 2656 [oz_av] 2656 [oz_av] [facility]AA ([facility]) Systolic blood pressure 99 mm[Hg] 99 mm[Hg] A [facility] ([facility]) Body mass index (BMI) [Ratio] 28.5 kg/m2 28.5 k g/m2 [facility] ([facility]) Body height 64 [in_i] 64 [in_i] [facility] ([facility]) Diastolic blood pressure 68 mm[Hg] 68 mm[Hg] [facility]AA ([facility]) Body weight 2656 [oz_av] 2656 [oz_av] [facility]AA ([facility]) Systolic blood pressure 99 mm[Hg] 99 mm[Hg] A THEN ([facility]) Body mass index (BMI) [Ratio] 28.5 kg/m2 28.5 k g/m2 [facility] ([facility]) Body height 64 [in_i] 64 [in_i] [facility]AA ([facility]) Diastolic blood pressure 68 mm[Hg] 68 mm[Hg] [facility]AA ([facility]) Body weight 2656 [oz_av] 2656 [oz_av] [facility]AA ([facility]) Systolic blood pressure 99 mm[Hg] 99 mm[Hg] A [facility] ([facility]) Body mass index (BMI) [Ratio] 28.5 kg/m2 28.5 k g/m2 [facility] ([facility]) Body height 64 [in_i] 64 [in_i] [facility]AA ([facility]) Diastolic blood pressure 68 mm[Hg] 68 mm[Hg] [facility]AA ([facility]) Body weight 2656 [oz_av] 2656 [oz_av] [facility]AA ([facility]) Systolic blood pressure 99 mm[Hg] 99 mm[Hg] A THENA ([facility]) Body mass index (BMI) [Ratio] 28.5 kg/m2 28.5 k g/m2 [facility] ([facility]) Body height 64 [in_i] 64 [in_i] [facility]AA ([facility]) Diastolic blood pressure 68 mm[Hg] 68 mm[Hg] [facility]AA ([facility]) Body weight 2656 [oz_av] 2656 [oz_av] [facility]HRAA ([facility]) Systolic blood pressure 99 mm[Hg] 99 mm[Hg] A THEN ([facility]) Body mass index (BMI) [Ratio] 28.5 kg/m2 28.5 k g/m2 [facility] ([facility]) Body height 64 [in_i] 64 [in_i] [facility] ([facility]) Diastolic blood pressure 68 mm[Hg] 68 mm[Hg] [facility]AA ([facility]) Body weight 2656 [oz_av] 2656 [oz_av] [facility]AA ([facility]) Systolic blood pressure 99 mm[Hg] 99 mm[Hg] A THENA ([facility]) Body mass index (BMI) [Ratio] 28.5 kg/m2 28.5 k g/m2 [facility] ([facility]) Body height 64 [in_i] 64 [in_i] [facility]AA ([facility]) Diastolic blood pressure 68 mm[Hg] 68 mm[Hg] [facility]AA ([facility]) Patient Treatment Plan of Care Planned Activity Planned Date Details Description Data Source (s) Pyridoxine Hydrochloride 25 MG Oral Tablet ZAHRAA ([facility]) paroxetine 20 mg tablet ATHE NA ([facility]) Pyridoxine Hydrochloride 25 MG Oral Tablet [facility]AA ([facility]) paroxetine 20 mg tablet ATHE NA ([facility]) Pyridoxine Hydrochloride 25 MG Oral Tablet [facility]AHRAA ([facility]) paroxetine 20 mg tablet ATHE NA ([facility]) Pyridoxine Hydrochloride 25 MG Oral Tablet ZAHRAA ([facility]) paroxetine 20 mg tablet ATHE NA ([facility]) Pyridoxine Hydrochloride 25 MG Oral Tablet ZAHRAA ([facility]) paroxetine 20 mg tablet ATHE NA ([facility]) paroxetine 20 mg tablet ATHE NA ([facility])
--- NOTE | 2020-11-08 10:42 | ED PDOC ---
Post-Departure Follow-Up patient was sent from triage to L&D prior to provider evaluation Ann Pagan MD Nov 08, 2020 10:42
[2020-11-08] MEDS ORDERED: BENA25CA4 PO (10:47)
== END 2020-11-08 10:10 | disposition admitted as inpatient to this hospital (09) ==
LOC: M ED 10:01
DX: Z53.29 Procedure and treatment not carried out because of patient's decision for other reasons (principal)

== ENCOUNTER 2020-11-08 10:17 | Outpatient (CLI) | payer OTHER ==
[~2020-11-08] VITALS: Ht 162.6 cm; Wt 86.3 kg
[2020-11-08 10:33] VITALS: BP 99/58
[2020-11-08] MEDS ORDERED: BENA25CA4 PO (10:47)
[2020-11-08 12:58] VITALS: BP 99/53
[2020-11-08 15:54] VITALS: BP 91/50
== END 2020-11-08 16:25 | disposition home or self-care (01) ==
LOC: M LDO 10:17
PROVIDERS: ATTEND Obstetrics & Gynecology
DX: O99.613 Diseases of the digestive system complicating pregnancy, third trimester (principal); R19.7 Diarrhea, unspecified; Z3A.31 31 weeks gestation of pregnancy

== ENCOUNTER 2020-12-02 17:02 | Emergency (ER) | payer OTHER ==
[~2020-12-02] VITALS: Ht 162.6 cm; Wt 91.7 kg
[~2020-12-02 17:02] MED LIST changes: +BENA25CA4 PO
--- OUTSIDE RECORDS SUMMARY | 2020-12-02 17:13 | CCD | Continuity of Care Document ---
Author Author Porsche LAM Organization Unknown Address [address], [place] [address] Phone [phone] Care Team Providers Care Windows Application Developer Name Role Phone AshleyMiley coopermat [employer] [phone] Angie Candelaria [employer]UMBLE [employer] [phone] Problems Active Problems Provider Date Anxiety state Cameron Lam M.D. Onset: 021 Allergic rhinitis due to pollen Cameron Lam M.D. On set: 11/12/2020 Note: 3+ positive reaction to weed polle n and tree mix #2 (cherelle, cottonwood, elm, pine) on intradermal test. Allergic rhinitis due to house dust mite Cameron Lam M.D. Onset: 11/12/2020 Note: 4++ reaction to dust mites on scra tch test. Social History Type Date Description Comments Sex Unknown Tobacco Use Start: Unknown Patient has never smoked Smoking Status Reviewed: 11/12/20 Patient has never smoked Allergies, Adverse Reactions, Alerts Description No Known Drug Allergies Medications Description No Active Medications Immunizations Description No Information Available Vital Signs Date Vital Result Comment 11/12/2020 10:20am Weight 197.12 lb Height 64 inches 5'4" Heart Rate 94 /min Respiratory Rate 16 /min BP Systolic 99 mmHg BP Diastolic 64 mmHg BMI (Body Mass Index) 33.8 kg/m2 Results Description No Information Available Procedures Date Code Description Status 11/12/2020 00015 Allergy Tests Intrad ermal W/ Allergenic Extr Immediate Reaction Completed 11/12/2020 06554 Allergy Tests Percutaneous W/ Al lergenic Extracts Completed Medical Devices Description No Information Available Encounters Type Date Location Provider Dx Diagnosis Office Visit 11/12/2020 10:15a Main Office Cameron Lam M.D. T78.1xxA Oth adverse food reactions, not elsewhere classified, init F41.9 Anxiety disorder, unspecifie d J30.89 Other allergic rhinitis J30.1 Allergic rhinitis due to karma nathan Assessments Date Code Description Provider 11/12/2020 T78.1xxA Other adverse food r eactions, not elsewhere classified, initial encounter Cameron Lam M.D. 11/12/2020 F41.9 Anxiety disorder, unspecified Da elvin Lam M.D. 11/12/2020 J30.89 Allergic rhinitis due to house d ust mite Cameron Lam M.D. 11/12/2020 J30.1 Allergic rhinitis due to pollen Cameron Lam M.D. Plan of Treatment Future Appointment(s):* 04/13/2021 11:00 am - Cameron Lam M.D. at Main Office 11/12/2020 - Cameron Lam M.D.* T78.1xxA Other adverse food reactions, not elsewhere classified, initial encounter* Recommendations:* As her reactions to fish and shellfish are not a result of allergy I see no definite need to avoid exposure to fish or shellfish. Because of high anxiety it may still be reasonable for her to avoid. * F41.9 Anxiety disorder, unspecified * J30.89 Allergic rhinitis due to house dust mite* Recommendations:* I reviewed effective allergy avoidance measures for dust mites. Because of persistence of symptoms I suggested to start this patient on Flonase that should help with congestion and to use antihistamine prn itching and sneezing. Nasal spray should be used consistently every night in order to be effective. * J30.1 Allergic rhinitis due to pollen* Recommendations:* I reviewed allergy avoidance measures for pollen that may possibly help with symptoms. See above. * All * New Medication:* No Active Medications - * Comments:* Time spent:Reviewing notes and labs from patient's PCP: 5 minutesFace to face discussion: 35 minutesDocumenting the visit: 10 minutes * Follow up:* 5 months. Sooner if needed. Functional Status Description No Information Available Mental Status Description No Information Available Referrals Description No Information Available
--- OUTSIDE RECORDS SUMMARY | 2020-12-02 17:14 | CCD ---
Author Author [facility] Organization [facility] Address Unknown Phone Unavailable Care Team Providers Care Business Attorney Name Role Phone Jeramie Larkin MD Unavailable [...] Unavailable Jeramie Larkin MD Unavailable Unavailable Jeramie Larkni MD Unavailable Unavailable Jeramie Larkin MD Unavailable [...] Unavailable Unavailable Jeramie Larkin MD Unavailable Unavailable CRISTEL LAM MD Unavailable Unavailable CRISTEL LAM MD Unavailable Unavailable CRISTEL LAM MD Unavailable Unavailable CRISTEL LAM MD Unavailable Unavailable CRISTEL LAM MD Unavailable Unavailable CRISTEL LAM MD Unavailable Unavailable CRISTEL LAM MD Unavailable Unavailable CRISTEL LAM MD Unavailable Unavailable CRISTEL LAM MD Unavailable Unavailable CRISTEL LAM MD Unavailable Unavailable CHROSTOWSKI, CRISTEL MD Unavailable Unavailable CHROSTOWSKI, CRISTEL MD Unavailable Unavailable CHROSTOWSKI, CRISTEL MD Unavailable Unavailable CHROSTOWSKI, CRISTEL MD Unavailable Unavailable CHROSTOWSKI, CRISTEL MD Unavailable Unavailable CHROSTOWSKI, CRISTEL MD Unavailable Unavailable CHROSTOWSKI CRISTEL MD Unavailable Unavailable CHROSTOWSKI, CRISTEL MD Unavailable Unavailable CHROSTOWSKI, CRISTEL MD Unavailable Unavailable CHROSTOWSKI, CRISTEL MD Unavailable Unavailable CHROSTOWSKI, CRISTLE MD Unavailable Unavailable CHROSTOWSKI, CRISTEL MD Unavailable Unavailable CHROSTOWSKI, CRISTEL MD Unavailable Unavailable CHROSTOWSKI, CRISTEL MD Unavailable Unavailable CHROSTOWSKI, CRISTEL MD Unavailable Unavailable CHROSTOWSKI, CRISTEL MD Unavailable Unavailable CHROSTOWSKI, CRISTEL MD Unavailable Unavailable CHROSTOWSKI, CRISTEL MD Unavailable Unavailable CHROSTOWSKI, CRISTEL MD Unavailable Unavailable CHROSTOWSKI, CRISTEL MD Unavailable Unavailable CHROSTOWSKI, CRISTEL MD Unavailable Unavailable CHROSTOWSKI, CRISTEL MD Unavailable Unavailable CHROSTOWSKI, CRISTEL MD Unavailable Unavailable CHROSTOWSKI, CRSITEL MD Unavailable Unavailable CHROSTOWSKI, CRISTEL MD Unavailable Unavailable CHROSTOWSKI, CRISTEL MD Unavailable Unavailable CHROSTOWSKI, CRISTEL MD Unavailable Unavailable CHROSTOWSKI, CRISTEL MD Unavailable Unavailable CHROSTOWSKI, CRISTEL MD Unavailable Unavailable CHROSTOWSKI, CRISTEL MD Unavailable Unavailable Scordo, M Gina PA [...] Unavailable Scordo, M Gina PA Unavailable Unavailable Bari, Angie COSTUME SEAMSTRESS COSTUME SEAMSTRESS Unavailable Unavailable Bari, A Angie COSTUME SEAMSTRESS Unavailable Unavailable Bari, A Angie COSTUME SEAMSTRESS Unavailable Unavailable Bari, A Angie COSTUME SEAMSTRESS Unavailable Unavailable Bari, A Angie COSTUME SEAMSTRESS Unavailable Unavailable Bari, A Angie COSTUME SEAMSTRESS Unavailable Unavailable Bari, A Angie COSTUME SEAMSTRESS Unavailable Unavailable Bari, A Angie COSTUME SEAMSTRESS Unavailable Unavailable Bari, A Angie COSTUME SEAMSTRESS Unavailable Unavailable Bari, A Angie COSTUME SEAMSTRESS Unavailable Unavailable Bari, A Angie COSTUME SEAMSTRESS Unavailable Unavailable Bari, A Angie COSTUME SEAMSTRESS Unavailable Unavailable Bari, A Angie COSTUME SEAMSTRESS Unavailable Unavailable Bari, A Angie COSTUME SEAMSTRESS Unavailable Unavailable Bari, A Angie COSTUME SEAMSTRESS Unavailable Unavailable Bari, A Angie COSTUME SEAMSTRESS Unavailable Unavailable Bari, A Angie COSTUME SEAMSTRESS Unavailable Unavailable Bari, A Angie COSTUME SEAMSTRESS Unavailable Unavailable Bari, A Angie COSTUME SEAMSTRESS Unavailable Unavailable Bari, A Angie COSTUME SEAMSTRESS Unavailable Unavailable Bari, A Angie COSTUME SEAMSTRESS Unavailable Unavailable Bari, A Angie COSTUME SEAMSTRESS Unavailable Unavailable Bari, A Angie COSTUME SEAMSTRESS Unavailable Unavailable Bari, A Angie COSTUME SEAMSTRESS Unavailable Unavailable Bari, A Angie COSTUME SEAMSTRESS Unavailable Unavailable Bari, A Angie COSTUME SEAMSTRESS Unavailable Unavailable Bari, A Angie COSTUME SEAMSTRESS Unavailable Unavailable Bari, A Angie COSTUME SEAMSTRESS Unavailable Unavailable Bari, A Angie COSTUME SEAMSTRESS Unavailable Unavailable Fostveit, Megan Unavailable Unavailable Fostveit, [...] is protected by Article 27-F of the [facility] Public Health law. If you continue you may have access to information: Regarding HIV / AIDS; Provided by facilities licensed or operated by the [facility] Office of Mental Health; or Provided by the [facility] Office for People With Developmental Disabilities. If such information is present, then the following [facility] mandated warning applies: This information has been [...] law may result in a fine or care home sentence or both. A general authorization for the release of medical or other information is NOT sufficient authorization for further disc losure. Encounters Encounter Providers Location Date Indications Data Source(s ) Outpatient Attender: CRISTEL LAM MD Main Office 11/12/2020 09:15:00 AM EST MEDENT ([facility] Megan Colon, RAILROAD BAGGAGE PORTER-R: [address] [facility], [facility] [address] [address], Ph. Attender: Megan Euceda [facility] Medical 11/05/2020 12:00:00 AM EST [facility] ([facility]) ANGELA GrahamW-R: [address], [place] [address], Ph. Attender: Meganoswaldo Euceda [facility] Medical 10/22/2020 12:00:00 AM EST ZAHRAA ([facility]) ANGELA GrahamW-R: [address], [place] [address], Ph. Attender: Megan Euceda [facility] Medical 10/22/2020 12:00:00 AM EST [facility]AA ([facility]) Adrian Larkin MD: [address] [place] [address], Ph. Attender: Adrian Larkin MD [facility] Medical 10/21/2020 12:00:00 AM EST ZAHRAA ([facility]) Adrian Larkin MD: [address] [place] [address], Ph. Attender: Adrian Larkin MD [facility] Medical 10/21/2020 12:00:00 AM EST ZAHRAA ([facility]) Adrian Larkin MD: [address] [place] [address], Ph. Attender: Adrian Larkin MD [facility] Medical 10/21/2020 12:00:00 AM EST ZAHRAA ([facility]) Megan Colon LCSW-R: [address], [place] [address], Ph. Attender: Megan Euceda [facility] Medical 10/13/2020 12:00:00 AM EST ZAHRAA ([facility]) Megan Colon LCSW-R: [address], [place] [address], Ph. Attender: Megan Euceda [facility] Medical 10/13/2020 12:00:00 AM EST [facility]HRAA ([facility]) Megan ColonANGELAW-R: [address], [place] [address], Ph. Attender: Megan Euceda [facility] Medical 10/13/2020 12:00:00 AM EST Z[facility]HRAA ([facility]) Megan HongANGELA chungW-R: [address], [place] [address], Ph. Attender: Megan Wolffoscar [facility] Medical 10/13/2020 12:00:00 AM EST ZAHRAA ([facility]) Gina Chris PA-C: [address], [place] [address], Ph. Attender: Gina BRUSH [facility] 10/06/2020 12:00:00 AM EST [facility]HRAA ([facility]) Gina Chris PA-C: [address], [place] [address], Ph. Attender: Gina BRUSH [facility] Medical 10/06/2020 12:00:00 AM EST ZAHRAA ([facility]) Gina Chris PA-C: [address], [place] [address], Ph. Attender: Gina BRUSH [facility] Medical 10/06/2020 12:00:00 AM EST ZAHRAA ([facility]) Gina Chris PA-C: [address], [place] [address], Ph. Attender: Gina BRUSH [facility] Medical 10/06/2020 12:00:00 AM EST [facility]HRAA ([facility]) Gina Chris PA-C: [address], [place] [address], Ph. Attender: Gina BRUSH [facility] Medical 10/06/2020 12:00:00 AM EST [facility]HRAA ([facility]) Gina Chris PA-C: [address], [place] [address], Ph. Attender: Gina BRUSH [facility] Medical 08/25/2020 12:00:00 AM EST [facility]HRAA ([facility]) Gina Chris PA-C: [address], [place] [address], Ph. Attender: Gina BRUSH [facility] Medical 08/25/2020 12:00:00 AM EST ZAHRAA ([facility]) Gina Chris PA-C: [address], [place] [address], Ph. Attender: Gina BRUSH [facility] Medical 08/25/2020 12:00:00 AM EST ZAHRAA ([facility]) Gina Chris PA-C: [address], [place] [address], Ph. Attender: Gina BRUSH [facility] Medical 08/25/2020 12:00:00 AM EST ZAHRAA ([facility]) Gina Chris PA-C: [address], [place] [address], Ph. Attender: Gina BRUSH [facility] Medical 08/25/2020 12:00:00 AM EST ZAHRAA ([facility]) Gina Chris PA-C: [address] [place] [address], Ph. Attender: Gina FLEMING - [facility] Medical 08/25/2020 12:00:00 AM EST ROSINE ([facility]) Outpatient Attender: HUMBLE Candelaria [facility] 08/12/2020 01:24:00 P M [facility] Outpatient Attender: HUMBLE Candelaria [facility] 08/12/2020 01:09:01 P M [facility] Outpatient Attender: HUMBLE Candelaria [facility] 08/12/2020 01:08:00 P M [facility] Outpatient Attender: HUMBLE Candelaria [facility] 08/12/2020 01:06:01 P M [facility] Outpatient Attender: HUMBLE Candelaria [facility] 04/29/2020 05:19:01 A M EDT [facility] Outpatient Attender: Angie Candelaria [facility] 04/29/2020 05:1 9:00 AM EDT [facility] Outpatient Attender: HUMBLE Candelaria [facility] 04/28/2020 09:51:01 A M EDT [facility] Outpatient [facility] 04/15/2020 12:02:13 AM EDT [facility] 04/14/2020 12:07:01 PM EDT [facility] 04/14/2020 12:02:00 PM EDT [facility] Medications Medication Brand Name Start Date Product Form Dose Route Admi nistrative Instructions Pharmacy Instructions Status Indications Reaction Description Data Source(s) Pyridoxine Hydrochloride 25 MG Oral Tablet Vitamin B-6 25 mg tablet Vitamin B-6 25 mg tablet completed p yridoxine hydrochloride 25 MG Oral Tablet [facility] ([facility]) Pyridoxine Hydrochloride 25 MG Oral Tablet Vitamin B-6 25 mg tablet Vitamin B-6 25 mg tablet completed p yridoxine hydrochloride 25 MG Oral Tablet ZAHRAA ([facility]) paroxetine 20 mg tablet [id number] [facility] ed paroxetine hydrochloride 20 MG Oral Tablet ZAHRAA ([facility]) Pyridoxine Hydrochloride 25 MG Oral Tablet Vitamin B-6 25 mg tablet Vitamin B-6 25 mg tablet completed p yridoxine hydrochloride 25 MG Oral Tablet [facility]HRAA ([facility]) Pyridoxine Hydrochloride 25 MG Oral Tablet Vitamin B-6 25 mg tablet Vitamin B-6 25 mg tablet completed p yridoxine hydrochloride 25 MG Oral Tablet [facility]HRAA ([facility]) paroxetine 20 mg tablet 863148 complet ed paroxetine hydrochloride 20 MG Oral Tablet [facility]AA ([facility]) paroxetine 20 mg tablet 842766 complet ed paroxetine hydrochloride 20 MG Oral Tablet [facility]AA ([facility]) paroxetine 20 mg tablet 566594 complet ed paroxetine hydrochloride 20 MG Oral Tablet [facility] ([facility]) paroxetine 20 mg tablet 605772 complet ed paroxetine hydrochloride 20 MG Oral Tablet [facility]AA ([facility]) Pyridoxine Hydrochloride 25 MG Oral Tablet Vitamin B-6 25 mg tablet Vitamin B-6 25 mg tablet completed p yridoxine hydrochloride 25 MG Oral Tablet [facility]AA ([facility]) paroxetine 20 mg tablet 926105 complet ed paroxetine hydrochloride 20 MG Oral Tablet [facility]AA ([facility]) Insurance Providers Payer name Policy type / Coverage type Policy ID Covered democrat ID Covered democrat's relationship to kilgore Policy Kilgore Plan Information MANUEL [id number] SP [id number] [place] [id number] O [id number] Managed Care Manuel P UNAVAILABLE S UNAVAILABLE Medicaid S UNAVAILABLE S UNAVAILA BLE MANUEL [id number] SP [id number] MANUEL [id number] SP [id number] MANUEL [id number] Self [id number] MANUEL [id number] [place] Care [place] Individual Policy 0 Self 0 MANUEL [id number] Patient [id number] Manuel Care [place] Individual Policy 0 Self 0 [place] Individual Policy 0 Self 0 [place] Individual Policy 0 Self 0 [place] Individual Policy 0 Self 0 [place] Individual Policy 0 Self 0 [place] Care [place] Individual Policy 0 Self 0 Medicaid [facility] Other 0 Self 0 MEDICAID [id number] Patient [id number] Medicaid [facility] Other 0 Self 0 Medicaid [facility] Other 0 Self 0 COMM MISSING INFO MISSING Patient [place] [id number] Patient [id number] Medicaid [facility] Other 0 Self 0 Problems, Conditions, and Diagnoses Code Display Name Description Problem Type Effective Dates Data Source(s) 472723013 Allergic rhinitis due to house dust mite Allergic rhinitis due to house dust mite Problem 11/12/2020 12:00:00 AM EST MEDENT ([facility]) Note: 4++ reaction to dust mites on scra tch test. [id number] Allergic rhinitis due to pollen Allergic rhiniti s due to pollen Problem 11/12/2020 12:00:00 AM EST MEDENT ([facility]) Note: 3+ positive reaction to weed polle n and tree mix #2 (cherelle, cottonwood, elm, pine) on intradermal test. [id number] Anxiety state Anxiety state Problem 11/12/2020 12:00:00 AM EST MEDENT ([facility]) [id number] Allergic rhinitis Allergic Rhinitis Problem 08/25/2020 12:00:00 AM EST [facility]AA ([facility]) [id number] Depressive disorder Depressive Disorder Problem 1 10/25/2019 12:00:00 AM EST [facility]HRAA ([facility]) 08203545 Allergic rhinitis Allergic Rhinitis Problem 08/25/2020 12:00:00 AM EST [facility] ([facility]) 44858610 Depressive disorder Depressive Disorder Problem 1 10/25/2019 12:00:00 AM EST [facility]HRAA ([facility]) 63561025 Allergic rhinitis Allergic Rhinitis Problem 08/25/2020 12:00:00 AM EST [facility]AA ([facility]) 18938658 Depressive disorder Depressive Disorder Problem 1 10/25/2019 12:00:00 AM EST [facility]AA ([facility]) 07192098 Allergic rhinitis Allergic Rhinitis Problem 08/25/2020 12:00:00 AM EST [facility]AA ([facility]) 18573837 Depressive disorder Depressive Disorder Problem 1 10/25/2019 12:00:00 AM EST [facility] ([facility]) 40769832 Allergic rhinitis Allergic Rhinitis Problem 08/25/2020 12:00:00 AM EST [facility]AHRAA ([facility]) 51187706 Depressive disorder Depressive Disorder Problem 1 10/25/2019 12:00:00 AM EST [facility]AA ([facility]) 94965026 Allergic rhinitis Allergic Rhinitis Problem 08/25/2020 12:00:00 AM EST [facility]AA ([facility]) 41427803 Depressive disorder Depressive Disorder Problem 1 10/25/2019 12:00:00 AM EST [facility]AA ([facility]) Surgeries/Procedures Procedure Description Date Indications Data Source(s) PERCUTANEOUS TESTS W/ALLERGENIC EXTRACTS 11/12/2020 12 :00:00 AM EST [facility] ([facility]) INTRACUTANEOUS TESTS W/ALLERGENIC EXTRACTS 11/12/2020 12:00:00 AM EST [facility] ([facility]) Results ID Date Data Source [id number] 10/21/2020 01:51:00 PM EST [facility]HRAA ([facility]) Name Value Range Interpretation Code Description Data Amie rce(s) Supporting Document(s) Hemoglobin A1c/Hemoglobin.total in Blood Hba1C [facility]) ID Date Data Source [id number] 10/21/2020 01:51:00 PM EST ZAHRAA ([facility]) Name Value Range Interpretation Code Description Data Amie rce(s) Supporting Document(s) Hemoglobin A1c/Hemoglobin.total in Blood Hba1C ROSINE ([facility]) ID Date Data Source [id number] 10/21/2020 09:50:00 AM EST [facility]AHRAA ([facility]) Name Value Range Interpretation Code Description Data Amie rce(s) Supporting Document(s) ferritin 13 NG/mL 8-252 normal Ferritin [facility]) ID Date Data Source [id number] 10/21/2020 09:50:00 [facility] Name Value Range Interpretation Code Description Data Amie rce(s) Supporting Document(s) iron (fe) 102 ug/dL 50-170 normal Iron (Fe) ZAHRAA ([facility]) total iron binding capacity 483 ug/dL 250-450 Above high no rmal Total Iron Binding Capacity ZAHRAA ([facility]) percent saturation 21.1 % 13.2-45.0 normal Percent Saturatio n ROSINE ([facility]) ID Date Data Source [id number] 10/21/2020 09:50:00 AM EST ROSINE ([facility]) Name Value Range Interpretation Code Description Data Amie rce(s) Supporting Document(s) white blood count 14.7 10 4.0-10.0 Above high normal White Blood Count [facility] ([facility]) red blood count 3.84 10 4.00-5.40 Below low normal Red Blood Coun t ROSINE ([facility]) hemoglobin 11.7 g/dL 12.0-15.5 Below low normal Hemoglobin ROSINE ( [facility]) hematocrit 36.1 % 36.0-47.0 normal Hematocrit ROS[facility] ([facility]) mean corpuscular volume 94.0 fL 80.0-96.0 normal Mean Corpusc ular Volume ROSINE ([facility]) mean corpuscular HGB conc 32.4 g/dL 32.0-36.5 normal Mean Corpu scular HGB Conc ROSINE ([facility]) mean corpuscular hemoglobin 30.5 pg 27.0-33.0 normal Mean Corpuscular Hemoglobin ZAHRAA ([facility]) red cell distribution width 13.4 % 11.5-14.5 normal Red Cell Distribution Width [facility] ([facility]) neutrophils % 72.9 % 36.0-66.0 Above high normal Neutrophils % A THENA ([facility]) platelet count, automated 225 10 150-450 normal Platelet C ount, Automated ZAHRAA ([facility]) lymph % 17.1 % 24.0-44.0 Below low normal Lymph % ZAHRAA ( [facility]) eos % 0.4 % 0.0-3.0 normal Eos % [facility] ([facility]) mono % 8.4 % 0.0-5.0 Above high normal Sharp % ZAHRAA ([facility]) baso % 0.2 % 0.0-1.0 normal Baso % [facility] ([facility]) immature granulocyte % 1.0 % 0-3.0 normal Immature Gran ulocyte % [facility]AHRAA ([facility]) nucleated red blood cell % 0.0 % 0-0 normal Nucleated Red Blood Cell % [facility]AHRAA ([facility]) neutrophils # 10.7 10 1.5-8.5 Above high normal Neutrophils # A THENA ([facility]) lymph # 2.5 10 1.5-5.0 normal Lymph # [facility]AHRAA ([facility]) eos # 0.1 10 0.0-0.5 normal Eos # [facility] ([facility]) mono # 1.2 10 0.0-0.8 Above high normal Sharp # [facility]AHRAA ([facility]) baso # 0.0 10 0.0-0.2 normal Baso # [facility]AA ([facility]) ID Date Data Source [id number] 10/21/2020 09:50:00 AM EST [facility]HRAA ([facility]) Name Value Range Interpretation Code Description Data Amie rce(s) Supporting Document(s) ferritin 13 NG/mL 8-252 normal Ferritin [facility] ([facility]) ID Date Data Source [id number] 10/21/2020 09:50:00 AM EST [facility]AHRAA ([facility]) Name Value Range Interpretation Code Description Data Amie rce(s) Supporting Document(s) total iron binding capacity 483 ug/dL 250-450 Above high no rmal Total Iron Binding Capacity ZAHRAA ([facility]) iron (fe) 102 ug/dL 50-170 normal Iron (Fe) ROSINE ([facility]) percent saturation 21.1 % 13.2-45.0 normal Percent Saturatio n [facility]AHRAA ([facility]) ID Date Data Source [id number] 10/21/2020 09:50:00 AM EST ROSINE ([facility]) Name Value Range Interpretation Code Description Data Amie rce(s) Supporting Document(s) white blood count 14.7 10 4.0-10.0 Above high normal White Blood Count [facility]AHRAA ([facility]) hemoglobin 11.7 g/dL 12.0-15.5 Below low normal Hemoglobin ZAHRAA ( [facility]) red blood count 3.84 10 4.00-5.40 Below low normal Red Blood Coun t [facility]AHRAA ([facility]) hematocrit 36.1 % 36.0-47.0 normal Hematocrit ROSINE ([facility]) mean corpuscular hemoglobin 30.5 pg 27.0-33.0 normal Mean Corpuscular Hemoglobin ROSINE ([facility]) mean corpuscular HGB conc 32.4 g/dL 32.0-36.5 normal Mean Corpu scular HGB Conc ROSINE ([facility]) mean corpuscular volume 94.0 fL 80.0-96.0 normal Mean Corpusc ular Volume ROSINE ([facility]) platelet count, automated 225 10 150-450 normal Platelet C ount, Automated ROSINE ([facility]) neutrophils % 72.9 % 36.0-66.0 Above high normal Neutrophils % A THENA ([facility]) red cell distribution width 13.4 % 11.5-14.5 normal Red Cell Distribution Width [facility]AHRAA ([facility]) eos % 0.4 % 0.0-3.0 normal Eos % [facility] ([facility]) mono % 8.4 % 0.0-5.0 Above high normal Sharp % [facility]AHRAA ([facility]) lymph % 17.1 % 24.0-44.0 Below low normal Lymph % ZAHRAA ( [facility]) nucleated red blood cell % 0.0 % 0-0 normal Nucleated Red Blood Cell % [facility]AHRAA ([facility]) immature granulocyte % 1.0 % 0-3.0 normal Immature Gran ulocyte % [facility]AHRAA ([facility]) baso % 0.2 % 0.0-1.0 normal Baso % ZHARAA ([facility]) neutrophils # 10.7 10 1.5-8.5 Above high normal Neutrophils # A THENA ([facility]) lymph # 2.5 10 1.5-5.0 normal Lymph # [facility]AHRAA ([facility]) eos # 0.1 10 0.0-0.5 normal Eos # [facility]AA ([facility]) mono # 1.2 10 0.0-0.8 Above high normal Sharp # [facility]AHRAA ([facility]) baso # 0.0 10 0.0-0.2 normal Baso # [facility]AHRAA ([facility]) ID Date Data Source [id number] 10/06/2020 01:40:00 PM EST ZAHRAA ([facility]) Name Value Range Interpretation Code Description Data Amie rce(s) Supporting Document(s) thyroid stimulating hormone 0.921 uIU/mL 0.358-3.740 normal Thyroid Stimulating Hormone ROSINE ([facility]) ID Date Data Source [id number] 10/06/2020 01:40:00 PM EST ZAHRAA ([facility]) Name Value Range Interpretation Code Description Data Amie rce(s) Supporting Document(s) glucose, fasting 104 mg/dL 70-100 Above high normal Glucose, Fas ting ROSINE ([facility]) creatinine for GFR 0.57 mg/dL 0.55-1.30 normal Creatinine for GF R ROSINE ([facility]) glomerular filtration rate > 60.0 >60 normal Glomerula r Filtration Rate ZAHRAA ([facility]) blood urea nitrogen 7 mg/dL 7-18 normal Blood Urea Nitro gen ZAHRAA ([facility]) sodium level 139 mEq/L 136-145 normal Sodium Level ZAHRAA ([facility]) potassium serum 4.1 mEq/L 3.5-5.1 normal Potassium Serum ATH NA ([facility]) carbon dioxide level 27 mEq/L 21-32 normal Carbon Dioxide Level ROSINE ([facility]) chloride level 106 mEq/L 98-107 normal Chloride Level ROSINE ([facility]) anion gap 6 mEq/L 8-16 Below low normal Anion Gap ZAHRAA ( [facility]) AST/SGOT 4 U/L 7-37 Below low normal AST/SGOT ZAHRAA ( [facility]) calcium level 8.6 mg/dL 8.5-10.1 normal Calcium Level ZAHRAA ( [facility]) ALT/SGPT 12 U/L 12-78 normal ALT/SGPT ZAHRAA ([facility]) alkaline phosphatase 76 U/L 45-117 normal Alkaline Phosph atase ZAHRAA ([facility]) total protein 6.3 gm/dL 6.4-8.2 Below low normal Total Protein AT CHRISTIANO ([facility]) bilirubin,total 0.3 mg/dL 0.2-1.0 normal Bilirubin,total ATHE ([facility]) albumin 2.5 gm/dL 3.2-5.2 Below low normal Albumin ZAHRAA ( [facility]) albumin/globulin ratio 1.2-2.2 Below low normal Albumin /globulin Ratio ZAHRAA ([facility]) ID Date Data Source [id number] 10/06/2020 01:40:00 PM EST ZAHRAA ([facility]) Name Value Range Interpretation Code Description Data Amie rce(s) Supporting Document(s) white blood count 13.3 10 4.0-10.0 Above high normal White Blood Count ZAHRAA ([facility]) red blood count 3.91 10 4.00-5.40 Below low normal Red Blood Coun t ZAHRAA ([facility]) hemoglobin 11.5 g/dL 12.0-15.5 Below low normal Hemoglobin ZAHRAA ( [facility]) hematocrit 36.9 % 36.0-47.0 normal Hematocrit ZAHRAA ([facility]) mean corpuscular hemoglobin 29.4 pg 27.0-33.0 normal Mean Corpuscular Hemoglobin ZAHRAA ([facility]) mean corpuscular volume 94.4 fL 80.0-96.0 normal Mean Corpusc ular Volume ZAHRAA ([facility]) mean corpuscular HGB conc 31.2 g/dL 32.0-36.5 Below low shaq l Mean Corpuscular HGB Conc ZAHRAA ([facility]) red cell distribution width 13.2 % 11.5-14.5 normal Red Cell Distribution Width ZAHRAA ([facility]) platelet count, automated 236 10 150-450 normal Platelet C ount, Automated ZAHRAA ([facility]) neutrophils % 74.2 % 36.0-66.0 Above high normal Neutrophils % A THENA ([facility]) lymph % 17.2 % 24.0-44.0 Below low normal Lymph % ZAHRAA ( [facility]) mono % 7.3 % 0.0-5.0 Above high normal Sharp % ZAHRAA ([facility]) eos % 0.4 % 0.0-3.0 normal Eos % ZAHRAA ([facility]) baso % 0.2 % 0.0-1.0 normal Baso % ROSINE ([facility]) nucleated red blood cell % 0.0 % 0-0 normal Nucleated Red Blood Cell % ZAHRAA ([facility]) immature granulocyte % 0.7 % 0-3.0 normal Immature Gran ulocyte % ZAHRAA ([facility]) lymph # 2.3 10 1.5-5.0 normal Lymph # ZAHRAA ([facility]) neutrophils # 9.9 10 1.5-8.5 Above high normal Neutrophils # A THENA ([facility]) mono # 1.0 10 0.0-0.8 Above high normal Sharp # ZAHRAA ([facility]) eos # 0.1 10 0.0-0.5 normal Eos # ZAHRAA ([facility]) baso # 0.0 10 0.0-0.2 normal Baso # ZAHRAA ([facility]) ID Date Data Source [id number] 10/06/2020 01:40:00 PM EST ROSINE ([facility]) Name Value Range Interpretation Code Description Data Amie rce(s) Supporting Document(s) thyroid stimulating hormone 0.921 uIU/mL 0.358-3.740 normal Thyroid Stimulating Hormone ZAHRAA ([facility]) ID Date Data Source [id number] 10/06/2020 01:40:00 PM EST ROSINE ([facility]) Name Value Range Interpretation Code Description Data Amie rce(s) Supporting Document(s) glucose, fasting 104 mg/dL 70-100 Above high normal Glucose, Fas ting ZAHRAA ([facility]) blood urea nitrogen 7 mg/dL 7-18 normal Blood Urea Nitro gen ZAHRAA ([facility]) creatinine for GFR 0.57 mg/dL 0.55-1.30 normal Creatinine for GF R ZAHRAA ([facility]) potassium serum 4.1 mEq/L 3.5-5.1 normal Potassium Serum ATHE NA ([facility]) sodium level 139 mEq/L 136-145 normal Sodium Level ZAHRAA ([facility]) glomerular filtration rate > 60.0 >60 normal Glomerula r Filtration Rate ZAHRAA ([facility]) anion gap 6 mEq/L 8-16 Below low normal Anion Gap ZAHRAA ( [facility]) carbon dioxide level 27 mEq/L 21-32 normal Carbon Dioxide Level ZAHRAA ([facility]) chloride level 106 mEq/L 98-107 normal Chloride Level ZAHRAA ([facility]) calcium level 8.6 mg/dL 8.5-10.1 normal Calcium Level ZAHRAA ( [facility]) total protein 6.3 gm/dL 6.4-8.2 Below low normal Total Protein AT [facility]) AST/SGOT 4 U/L 7-37 Below low normal AST/SGOT ROSINE ( [facility]) bilirubin,total 0.3 mg/dL 0.2-1.0 normal Bilirubin,total ATHE NA ([facility]) alkaline phosphatase 76 U/L 45-117 normal Alkaline Phosph atase ZAHRAA ([facility]) ALT/SGPT 12 U/L 12-78 normal ALT/SGPT ZAHRAA ([facility]) albumin 2.5 gm/dL 3.2-5.2 Below low normal Albumin ZAHRAA ( [facility]) albumin/globulin ratio 1.2-2.2 Below low normal Albumin /globulin Ratio ROSINE ([facility]) ID Date Data Source [id number] 10/06/2020 01:40:00 PM EST ZAHRAA ([facility]) Name Value Range Interpretation Code Description Data Amie rce(s) Supporting Document(s) red blood count 3.91 10 4.00-5.40 Below low normal Red Blood Coun t ZAHRAA ([facility]) hemoglobin 11.5 g/dL 12.0-15.5 Below low normal Hemoglobin ZAHRAA ( [facility]) white blood count 13.3 10 4.0-10.0 Above high normal White Blood Count ROSINE ([facility]) mean corpuscular volume 94.4 fL 80.0-96.0 normal Mean Corpusc ular Volume ROSINE ([facility]) mean corpuscular HGB conc 31.2 g/dL 32.0-36.5 Below low shaq l Mean Corpuscular HGB Conc ZAHRAA ([facility]) mean corpuscular hemoglobin 29.4 pg 27.0-33.0 normal Mean Corpuscular Hemoglobin ZAHRAA ([facility]) hematocrit 36.9 % 36.0-47.0 normal Hematocrit ROSINE ([facility]) platelet count, automated 236 10 150-450 normal Platelet C ount, Automated ZAHRAA ([facility]) red cell distribution width 13.2 % 11.5-14.5 normal Red Cell Distribution Width ZAHRAA ([facility]) lymph % 17.2 % 24.0-44.0 Below low normal Lymph % ZAHRAA ( [facility]) neutrophils % 74.2 % 36.0-66.0 Above high normal Neutrophils % A THENA ([facility]) eos % 0.4 % 0.0-3.0 normal Eos % ZAHRAA ([facility]) mono % 7.3 % 0.0-5.0 Above high normal Sharp % ZAHRAA ([facility]) baso % 0.2 % 0.0-1.0 normal Baso % ZAHRAA ([facility]) immature granulocyte % 0.7 % 0-3.0 normal Immature Gran ulocyte % ZAHRAA ([facility]) nucleated red blood cell % 0.0 % 0-0 normal Nucleated Red Blood Cell % ZAHRAA ([facility]) mono # 1.0 10 0.0-0.8 Above high normal Sharp # ZAHRAA ([facility]) neutrophils # 9.9 10 1.5-8.5 Above high normal Neutrophils # A THENA ([facility]) lymph # 2.3 10 1.5-5.0 normal Lymph # ZAHRAA ([facility]) baso # 0.0 10 0.0-0.2 normal Baso # ZAHRAA ([facility]) eos # 0.1 10 0.0-0.5 normal Eos # ZAHRAA ([facility]) ID Date Data Source [id number] 10/06/2020 01:40:00 PM EST ZAHRAA ([facility]) Name Value Range Interpretation Code Description Data Amie rce(s) Supporting Document(s) thyroid stimulating hormone 0.921 uIU/mL 0.358-3.740 normal Thyroid Stimulating Hormone ROSINE ([facility]) ID Date Data Source [id number] 10/06/2020 01:40:00 PM EST ZAHRAA ([facility]) Name Value Range Interpretation Code Description Data Amie rce(s) Supporting Document(s) glucose, fasting 104 mg/dL 70-100 Above high normal Glucose, Fas ting ROSINE ([facility]) glomerular filtration rate > 60.0 >60 normal Glomerula r Filtration Rate ROSINE ([facility]) blood urea nitrogen 7 mg/dL 7-18 normal Blood Urea Nitro gen ZAHRAA ([facility]) creatinine for GFR 0.57 mg/dL 0.55-1.30 normal Creatinine for GF R ROSINE ([facility]) anion gap 6 mEq/L 8-16 Below low normal Anion Gap ROSINE ( [facility]) potassium serum 4.1 mEq/L 3.5-5.1 normal Potassium Serum ATH NA ([facility]) chloride level 106 mEq/L 98-107 normal Chloride Level ROSINE ([facility]) carbon dioxide level 27 mEq/L 21-32 normal Carbon Dioxide Level ZAHRAA ([facility]) sodium level 139 mEq/L 136-145 normal Sodium Level ZAHRAA ([facility]) alkaline phosphatase 76 U/L 45-117 normal Alkaline Phosph atase ZAHRAA ([facility]) calcium level 8.6 mg/dL 8.5-10.1 normal Calcium Level ZAHRAA ( [facility]) ALT/SGPT 12 U/L 12-78 normal ALT/SGPT ZAHRAA ([facility]) AST/SGOT 4 U/L 7-37 Below low normal AST/SGOT ZAHRAA ( [facility]) albumin 2.5 gm/dL 3.2-5.2 Below low normal Albumin ZAHRAA ( [facility]) total protein 6.3 gm/dL 6.4-8.2 Below low normal Total Protein AT [facility]) albumin/globulin ratio 1.2-2.2 Below low normal Albumin /globulin Ratio ZAHRAA ([facility]) bilirubin,total 0.3 mg/dL 0.2-1.0 normal Bilirubin,total ATHE NA ([facility]) ID Date Data Source [id number] 10/06/2020 01:40:00 PM EST ZAHRAA ([facility]) Name Value Range Interpretation Code Description Data Amie rce(s) Supporting Document(s) red blood count 3.91 10 4.00-5.40 Below low normal Red Blood Coun t ZAHRAA ([facility]) hemoglobin 11.5 g/dL 12.0-15.5 Below low normal Hemoglobin ZAHRAA ( [facility]) white blood count 13.3 10 4.0-10.0 Above high normal White Blood Count ZAHRAA ([facility]) hematocrit 36.9 % 36.0-47.0 normal Hematocrit ZAHRAA ([facility]) mean corpuscular hemoglobin 29.4 pg 27.0-33.0 normal Mean Corpuscular Hemoglobin ZAHRAA ([facility]) mean corpuscular volume 94.4 fL 80.0-96.0 normal Mean Corpusc ular Volume ZAHRAA ([facility]) mean corpuscular HGB conc 31.2 g/dL 32.0-36.5 Below low shaq l Mean Corpuscular HGB Conc ZAHRAA ([facility]) red cell distribution width 13.2 % 11.5-14.5 normal Red Cell Distribution Width ZAHRAA ([facility]) lymph % 17.2 % 24.0-44.0 Below low normal Lymph % ZAHRAA ( [facility]) mono % 7.3 % 0.0-5.0 Above high normal Sharp % ZAHRAA ([facility]) platelet count, automated 236 10 150-450 normal Platelet C ount, Automated ZAHRAA ([facility]) neutrophils % 74.2 % 36.0-66.0 Above high normal Neutrophils % A [facility] ([facility]) nucleated red blood cell % 0.0 % 0-0 normal Nucleated Red Blood Cell % ZAHRAA ([facility]) eos % 0.4 % 0.0-3.0 normal Eos % ZAHRAA ([facility]) immature granulocyte % 0.7 % 0-3.0 normal Immature Gran ulocyte % ZAHRAA ([facility]) baso % 0.2 % 0.0-1.0 normal Baso % ZAHRAA ([facility]) lymph # 2.3 10 1.5-5.0 normal Lymph # ZAHRAA ([facility]) mono # 1.0 10 0.0-0.8 Above high normal Sharp # ZAHRAA ([facility]) neutrophils # 9.9 10 1.5-8.5 Above high normal Neutrophils # A THENA ([facility]) eos # 0.1 10 0.0-0.5 normal Eos # ZAHRAA ([facility]) baso # 0.0 10 0.0-0.2 normal Baso # ZAHRAA ([facility]) ID Date Data Source [id number] 10/06/2020 01:40:00 PM EST ROSINE ([facility]) Name Value Range Interpretation Code Description Data Amie rce(s) Supporting Document(s) thyroid stimulating hormone 0.921 uIU/mL 0.358-3.740 normal Thyroid Stimulating Hormone ROSINE ([facility]) ID Date Data Source [id number] 10/06/2020 01:40:00 PM EST ROSINE ([facility]) Name Value Range Interpretation Code Description Data Amie rce(s) Supporting Document(s) glomerular filtration rate > 60.0 >60 normal Glomerula r Filtration Rate ROSINE ([facility]) creatinine for GFR 0.57 mg/dL 0.55-1.30 normal Creatinine for GF R ROSINE ([facility]) glucose, fasting 104 mg/dL 70-100 Above high normal Glucose, Fas ting ROSINE ([facility]) blood urea nitrogen 7 mg/dL 7-18 normal Blood Urea Nitro gen ZAHRAA ([facility]) carbon dioxide level 27 mEq/L 21-32 normal Carbon Dioxide Level ROSINE ([facility]) potassium serum 4.1 mEq/L 3.5-5.1 normal Potassium [facility] chloride level 106 mEq/L 98-107 normal Chloride Level ROSINE ([facility]) anion gap 6 mEq/L 8-16 Below low normal Anion Gap ROSINE ( [facility]) sodium level 139 mEq/L 136-145 normal Sodium Level ZAHRAA (No [facility]) AST/SGOT 4 U/L 7-37 Below low normal AST/SGOT ROSINE ( [facility]) bilirubin,total 0.3 mg/dL 0.2-1.0 normal Bilirubin,total [facility] calcium level 8.6 mg/dL 8.5-10.1 normal Calcium Level ROSINE ( [facility]) alkaline phosphatase 76 U/L 45-117 normal Alkaline Phosph atase [facility]) ALT/SGPT 12 U/L 12-78 normal ALT/SGPT ROSINE ([facility]) total protein 6.3 gm/dL 6.4-8.2 Below low normal Total Protein AT [facility]) albumin 2.5 gm/dL 3.2-5.2 Below low normal Albumin ROSINE ( [facility]) albumin/globulin ratio 1.2-2.2 Below low normal Albumin /globulin Ratio ZAHRAA ([facility]) ID Date Data Source [id number] 04/24/2020 08:40:00 AM EDT [facility] Name Value Range Interpretation Code Description Data Amie rce(s) Supporting Document(s) HCT 40.5 % 36.0-47.0 N [facility] HGB 12.9 g/dL 12.0-15.5 N [facility] MCH 31.9 G/DL pg 32.0-36.5 L [facility] MCHC 28.2 PG % 27.0-33.0 N [facility] PLATELETS 257 10 10*3/mm3 150-450 N [facility] RBC 4.58 10 10*6/mm3 4.00-5.40 N [facility] RDW 13.3 % 11.5-14.5 N [facility] WBC TOTAL 8.2 4.0-10.0 N [facility] ID Date Data Source [id number] 04/24/2020 08:40:00 AM EDT [facility] Name Value Range Interpretation Code Description Data Amie rce(s) Supporting Document(s) BG FASTING 80 mg/dL 70-100 N [facility] ID Date Data Source [id number] 03/22/2020 12:00:00 AM [facility] Name Value Range Interpretation Code Description Data Amie rce(s) Supporting Document(s) SARS coronavirus 2 RNA [Presence] in Res piratory specimen by JORGE LUIS with probe detection [facility] This lab was ordered by Leatha Patterson and reported by [employer]. Procedure Social History Code Duration Value Status Description Data Source(s ) Smoking 11/12/2020 12:00:00 AM EST Patient has never smoked co mpleted Patient has never smoked MEDENT ([facility] Vital Signs ID Date Data Source [id number] Name Value Range Interpretation Code Description Data Source(s) Body mass index (BMI) [Ratio] 33.8 kg/m2 33.8 k g/m2 MEDENT ([facility]) Diastolic blood pressure 64 mm[Hg] 64 mm[Hg] MEDENT ([facility]) Systolic blood pressure 99 mm[Hg] 99 mm[Hg] M EDENT ([facility]) Respiratory rate 16 /min 16 /min MEDENT ( [facility]) Heart rate 94 /min 94 /min MEDENT ([facility] Body height 64 [in_i] 64 [in_i] MEDENT ([facility] 5'4" Body weight 197.12 [lb_av] 197.12 [lb_av] MEDEN T ([facility]) Systolic blood pressure 111 mm[Hg] 111 mm[Hg] A [facility] ([facility]) Body mass index (BMI) [Ratio] 31.5 kg/m2 31.5 k g/m2 ROSINE ([facility]) Body height 64 [in_i] 64 [in_i] ZAHRAA ([facility]) Diastolic blood pressure 58 mm[Hg] 58 mm[Hg] ZAHRAA ([facility]) Body weight 2934 [oz_av] 2934 [oz_av] ZAHRAA ([facility]) Systolic blood pressure 111 mm[Hg] 111 mm[Hg] A [facility] ([facility]) Body mass index (BMI) [Ratio] 31.5 kg/m2 31.5 k g/m2 ZAHRAA ([facility]) Body height 64 [in_i] 64 [in_i] ZAHRAA ([facility]) Diastolic blood pressure 58 mm[Hg] 58 mm[Hg] ZAHRAA ([facility]) Body weight 2934 [oz_av] 2934 [oz_av] ZAHRAA ([facility]) Systolic blood pressure 111 mm[Hg] 111 mm[Hg] A [facility] ([facility]) Body mass index (BMI) [Ratio] 31.5 kg/m2 31.5 k g/m2 ZAHRAA ([facility]) Body height 64 [in_i] 64 [in_i] ZAHRAA ([facility]) Diastolic blood pressure 58 mm[Hg] 58 mm[Hg] ZAHRAA ([facility]) Body weight 2934 [oz_av] 2934 [oz_av] ZAHRAA ([facility]) Systolic blood pressure 111 mm[Hg] 111 mm[Hg] A [facility] ([facility]) Body mass index (BMI) [Ratio] 31.5 kg/m2 31.5 k g/m2 ZAHRAA ([facility]) Body height 64 [in_i] 64 [in_i] ZAHRAA ([facility]) Diastolic blood pressure 58 mm[Hg] 58 mm[Hg] ZAHRAA ([facility]) Body weight 2934 [oz_av] 2934 [oz_av] ZAHRAA ([facility]) Body weight 2934 [oz_av] 2934 [oz_av] ZAHRAA ([facility]) Systolic blood pressure 111 mm[Hg] 111 mm[Hg] [facility] Body mass index (BMI) [Ratio] 31.5 kg/m2 31.5 k g/m2 ZAHRAA ([facility]) Body height 64 [in_i] 64 [in_i] ZAHRAA ([facility]) Diastolic blood pressure 58 mm[Hg] 58 mm[Hg] ZAHRAA ([facility]) Body weight 2656 [oz_av] 2656 [oz_av] ZAHRAA ([facility]) Systolic blood pressure 99 mm[Hg] 99 mm[Hg] A THENA ([facility]) Body mass index (BMI) [Ratio] 28.5 kg/m2 28.5 k g/m2 ZAHRAA ([facility]) Body height 64 [in_i] 64 [in_i] ZAHRAA ([facility]) Diastolic blood pressure 68 mm[Hg] 68 mm[Hg] ZAHRAA ([facility]) Body weight 2656 [oz_av] 2656 [oz_av] ZAHRAA ([facility]) Systolic blood pressure 99 mm[Hg] 99 mm[Hg] A [facility] ([facility]) Body mass index (BMI) [Ratio] 28.5 kg/m2 28.5 k g/m2 ZAHRAA ([facility]) Body height 64 [in_i] 64 [in_i] ZAHRAA ([facility]) Diastolic blood pressure 68 mm[Hg] 68 mm[Hg] ZAHRAA ([facility]) Body weight 2656 [oz_av] 2656 [oz_av] ZAHRAA ([facility]) Systolic blood pressure 99 mm[Hg] 99 mm[Hg] [facility] Body mass index (BMI) [Ratio] 28.5 kg/m2 28.5 k g/m2 ZAHRAA ([facility]) Body height 64 [in_i] 64 [in_i] ZAHRAA ([facility]) Diastolic blood pressure 68 mm[Hg] 68 mm[Hg] ZAHRAA ([facility]) Body weight 2656 [oz_av] 2656 [oz_av] ZAHRAA ([facility]) Systolic blood pressure 99 mm[Hg] 99 mm[Hg] A [facility] ([facility]) Body mass index (BMI) [Ratio] 28.5 kg/m2 28.5 k g/m2 ZAHRAA ([facility]) Body height 64 [in_i] 64 [in_i] ZAHRAA ([facility]) Diastolic blood pressure 68 mm[Hg] 68 mm[Hg] ZAHRAA ([facility]) Body weight 2656 [oz_av] 2656 [oz_av] ZAHRAA ([facility]) Systolic blood pressure 99 mm[Hg] 99 mm[Hg] A THENA ([facility]) Body mass index (BMI) [Ratio] 28.5 kg/m2 28.5 k g/m2 ZAHRAA ([facility]) Body height 64 [in_i] 64 [in_i] ZAHRAA ([facility]) Diastolic blood pressure 68 mm[Hg] 68 mm[Hg] ZAHRAA ([facility]) Body weight 2656 [oz_av] 2656 [oz_av] ZAHRAA ([facility]) Systolic blood pressure 99 mm[Hg] 99 mm[Hg] A [facility] ([facility]) Body mass index (BMI) [Ratio] 28.5 kg/m2 28.5 k g/m2 ZAHRAA ([facility]) Body height 64 [in_i] 64 [in_i] ZAHRAA ([facility]) Diastolic blood pressure 68 mm[Hg] 68 mm[Hg] ZAHRAA ([facility]) Patient Treatment Plan of Care Planned Activity Planned Date Details Description Data Source (s) Pyridoxine Hydrochloride 25 MG Oral Tablet ZAHRAA ([facility]) paroxetine 20 mg tablet ATHE NA ([facility]) Pyridoxine Hydrochloride 25 MG Oral Tablet ZAHRAA ([facility]) paroxetine 20 mg tablet ATHE NA ([facility]) Pyridoxine Hydrochloride 25 MG Oral Tablet ZAHRAA ([facility]) paroxetine 20 mg tablet ATHE NA ([facility]) Pyridoxine Hydrochloride 25 MG Oral Tablet ZAHRAA ([facility]) paroxetine 20 mg tablet ATHE NA ([facility]) Pyridoxine Hydrochloride 25 MG Oral Tablet ZAHRAA ([facility]) paroxetine 20 mg tablet ATHE NA ([facility]) paroxetine 20 mg tablet ATHE NA ([facility])
[2020-12-02 19:16] LABS: BASO % 0.2 % (0.0-1.0); EOS # 0.1 10^3/uL (0.0-0.5); EOS % 0.4 % (0.0-3.0); HEMOGLOBIN 11.6 g/dl (12.0-15.5); LYMPH # 2.4 10^3/uL (1.5-5.0); LYMPH % 16.6 % (24.0-44.0); MEAN CORPUSCULAR HEMOGLOBIN 29.5 pg (27.0-33.0); MEAN CORPUSCULAR HGB CONC 32.2 g/dl (32.0-36.5); MEAN CORPUSCULAR VOLUME 91.6 fl (80.0-96.0); MONO # 1.4 10^3/uL (0.0-0.8); MONO % 9.8 % (2.0-8.0); NEUTROPHILS # 10.7 10^3/uL (1.5-8.5); NEUTROPHILS % 72.3 % (36.0-66.0); PLATELET COUNT, AUTOMATED 194 10^3/uL (150-450); RED BLOOD COUNT 3.93 10^6/uL (4.00-5.40); WHITE BLOOD COUNT 14.7 10^3/uL (4.0-10.0)
--- OUTSIDE RECORDS SUMMARY | 2020-12-02 19:24 | CCD ---
Author Author [facility] Organization [facility] Address Unknown Phone Unavailable Care Team Providers Care Support Team Assoc Name Role Phone Jeramie Larkin MD Unavailable [...] Unavailable CHROSTOWSKI, CRISTEL MD Unavailable Unavailable CHROSTOWSKI, CRISETL MD Unavailable Unavailable CHROSTOWSKI, CRISTEL MD Unavailable [...] M Gina PA Unavailable Unavailable Bari, Angie GRADING MACHINE OPERATOR GRADING MACHINE OPERATOR Unavailable Unavailable Bari, A Angie GRADING MACHINE OPERATOR Unavailable Unavailable Bari, A Angie GRADING MACHINE OPERATOR Unavailable Unavailable Bari, A Angie GRADING MACHINE OPERATOR Unavailable Unavailable Bari, A Angie GRADING MACHINE OPERATOR Unavailable Unavailable Bari, A Angie GRADING MACHINE OPERATOR Unavailable Unavailable Bari, A Angie GRADING MACHINE OPERATOR Unavailable Unavailable Bari, A Angie GRADING MACHINE OPERATOR Unavailable Unavailable Bari, A Angie GRADING MACHINE OPERATOR Unavailable Unavailable Bari, A Angie GRADING MACHINE OPERATOR Unavailable Unavailable Bari, A Angie GRADING MACHINE OPERATOR Unavailable Unavailable Bari, A Angie GRADING MACHINE OPERATOR Unavailable Unavailable Bari, A Angie GRADING MACHINE OPERATOR Unavailable Unavailable Bari, A Angie GRADING MACHINE OPERATOR Unavailable Unavailable Bari, A Angie GRADING MACHINE OPERATOR Unavailable Unavailable Bari, A Angie GRADING MACHINE OPERATOR Unavailable Unavailable Bari, A Angie GRADING MACHINE OPERATOR Unavailable Unavailable Bari, A Angie GRADING MACHINE OPERATOR Unavailable Unavailable Bari, A Angie GRADING MACHINE OPERATOR Unavailable Unavailable Bari, A Angie GRADING MACHINE OPERATOR Unavailable Unavailable Bari, A Angie GRADING MACHINE OPERATOR Unavailable Unavailable Bari, A Angie GRADING MACHINE OPERATOR Unavailable Unavailable Bari, A Angie GRADING MACHINE OPERATOR Unavailable Unavailable Bari, A Angie GRADING MACHINE OPERATOR Unavailable Unavailable Bari, A Angie GRADING MACHINE OPERATOR Unavailable Unavailable Bari, A Angie GRADING MACHINE OPERATOR Unavailable Unavailable Bari, A Angie GRADING MACHINE OPERATOR Unavailable Unavailable Bari, A Angie GRADING MACHINE OPERATOR Unavailable Unavailable Bari, A Angie GRADING MACHINE OPERATOR Unavailable Unavailable Fostveit, Megan Unavailable [...] is protected by Article 27-F of the [facility] Public Health law. If you continue you may have access to information: Regarding HIV / AIDS; Provided by facilities licensed or operated by the [facility] Office of Mental Health; or Provided by the [facility] Office for People With Developmental Disabilities. If such information is present, then the following [facility] mandated warning applies: This information has [...] law may result in a fine or halfway sentence or both. A general authorization for the release of medical or other information is NOT sufficient authorization for further disc losure. Encounters Encounter Providers Location Date Indications Data Source(s ) Outpatient Attender: CRISTEL LAM MD Main Office 11/12/2020 09:15:00 AM EST MEDENT ([facility]) Megan Colon, CERTIFIED BENCH JEWELER TECHNICIAN-R: [address] [facility], [facility] [address] [address], Ph. Attender: Megan Euceda [facility] Medical 11/05/2020 12:00:00 AM EST ZAHRAA ([facility]) ANGELA GrahamW-R: [address], [address], [place] [address], Ph. Attender: Meganoswaldo Euceda [facility] Medical 10/22/2020 12:00:00 AM EST ZAHRAA ([facility]) ANGELA GrahamW-R: [address], [address], [place] [address], Ph. Attender: Megan Euceda [facility] Medical 10/22/2020 12:00:00 AM EST ZAHRAA ([facility]) Adrian Larkin MD: [address] [place] [address], Ph. Attender: Adrian Larkin MD [facility] Medical 10/21/2020 12:00:00 AM EST [facility] Adrian Larkin MD: [address] [place] [address], Ph. Attender: Adrian Larkin MD [facility] Medical 10/21/2020 12:00:00 AM EST [facility]) Adrian Larkin MD: [address] [place] [address], Ph. Attender: Adrian Larkin MD [facility] Medical 10/21/2020 12:00:00 AM EST [facility] ([facility]) Megan Colon LCSW-R: [address], [place] [address], Ph. Attender: Megan Euceda [facility] Medical 10/13/2020 12:00:00 AM EST ZAHRAA ([facility]) Megan Colon LCSW-R: [address], [place] [address], Ph. Attender: Megan Euceda [facility] Medical 10/13/2020 12:00:00 AM EST ZAHRAA ([facility]) Megan ColonANGELAW-R: [address], [place] [address], Ph. Attender: Megan Euceda [facility] Medical 10/13/2020 12:00:00 AM EST ZAHRAA ([facility]) Megan HongANGELA chungW-R: [address], [place] [address], Ph. Attender: Megan Wolffoscar [facility] Medical 10/13/2020 12:00:00 AM EST ZAHRAA ([facility]) Gina Chris PA-C: [address], [place] [address], Ph. Attender: Gina BRUSH [facility] Medical 10/06/2020 12:00:00 AM EST ZAHRAA ([facility]) Gina Chris PA-C: [address], [place] [address], Ph. Attender: Gina BRUSH [facility] Medical 10/06/2020 12:00:00 AM EST ZAHRAA ([facility]) Gina Chris PA-C: [address], [place] [address], Ph. Attender: Gina BRUSH [facility] Medical 10/06/2020 12:00:00 AM EST ZAHRAA ([facility]) Gina Chris PA-C: [address], [place] [address], Ph. Attender: Gina BRUSH [facility] Medical 10/06/2020 12:00:00 AM EST ZAHRAA ([facility]) Gina Chris PA-C: [address], [place] [address], Ph. Attender: Gina BRUSH [facility] Medical 10/06/2020 12:00:00 AM EST ZAHRAA ([facility]) Gina Chris PA-C: [address], [place] [address], Ph. Attender: Gina BRUSH [facility] Medical 08/25/2020 12:00:00 AM EST ZAHRAA ([facility]) Gina Chris PA-C: [address], [place] [address], Ph. Attender: Gina BRUSH [facility] Medical 08/25/2020 12:00:00 AM EST ZAHRAA ([facility]) Gina Chris PA-C: [address], [place] [address], Ph. Attender: Gina BRUSH [facility] Medical 08/25/2020 12:00:00 AM EST ZAHRAA ([facility]) Gina Chris PA-C: [address], [place] [address], Ph. Attender: Gina BRUSH [facility] Medical 08/25/2020 12:00:00 AM EST ZAHRAA ([facility]) Gina Chris PA-C: [address], [place] [address], Ph. Attender: Gina BRUSH [facility] Medical 08/25/2020 12:00:00 AM EST ZAHRAA ([facility]) Gina Chris PA-C: [address] [place] [address], Ph. Attender: Gina [facility] Medical 08/25/2020 12:00:00 AM EST KELLY ([facility]) Outpatient Attender: HUMBLE Candelaria [facility] 08/12/2020 01:24:00 P M [facility] Outpatient Attender: HUMBLE Candelaria [facility] 08/12/2020 01:09:01 P M [facility] Outpatient Attender: HUMBLE Candelaria [facility] 08/12/2020 01:08:00 P M [facility] Outpatient Attender: HUMBLE Candelaria [facility] 08/12/2020 01:06:01 P M [facility] Outpatient Attender: HUMBLE Candelaria [facility] 04/29/2020 05:19:01 A M EDT [facility] Outpatient Attender: Angie Candelaria [facility] 04/29/2020 05:1 9:00 AM EDT [facility] Outpatient Attender: HUMBLE Candelaria [facility] 04/28/2020 09:51:01 A M EDT [facility] Outpatient [facility] 04/15/2020 12:02:13 AM EDT [facility] Outpatient [facility] 04/14/2020 12:07:01 PM EDT [facility] Outpatient [facility] 04/14/2020 12:02:00 PM EDT [facility] Medications Medication Brand Name Start Date Product Form Dose Route Admi nistrative Instructions Pharmacy Instructions Status Indications Reaction Description Data Source(s) Pyridoxine Hydrochloride 25 MG Oral Tablet Vitamin B-6 25 mg tablet Vitamin B-6 25 mg tablet completed p yridoxine hydrochloride 25 MG Oral Tablet [facility] ([facility]) Pyridoxine Hydrochloride 25 MG Oral Tablet Vitamin B-6 25 mg tablet Vitamin B-6 25 mg tablet completed p yridoxine hydrochloride 25 MG Oral Tablet ZAHRAA ([facility]) paroxetine 20 mg tablet [id number] [facility] ed paroxetine hydrochloride 20 MG Oral Tablet ZAHRAA ([facility]) Pyridoxine Hydrochloride 25 MG Oral Tablet Vitamin B-6 25 mg tablet Vitamin B-6 25 mg tablet completed p yridoxine hydrochloride 25 MG Oral Tablet ZAHRAA ([facility]) Pyridoxine Hydrochloride 25 MG Oral Tablet Vitamin B-6 25 mg tablet Vitamin B-6 25 mg tablet completed p yridoxine hydrochloride 25 MG Oral Tablet ZAHRAA ([facility]) paroxetine 20 mg tablet [id number] complet ed paroxetine hydrochloride 20 MG Oral Tablet ZAHRAA ([facility]) paroxetine 20 mg tablet 755199 complet ed paroxetine hydrochloride 20 MG Oral Tablet ZAHRAA ([facility]) paroxetine 20 mg tablet 870714 complet ed paroxetine hydrochloride 20 MG Oral Tablet ZAHRAA ([facility]) paroxetine 20 mg tablet 515260 complet ed paroxetine hydrochloride 20 MG Oral Tablet ZAHRAA ([facility]) Pyridoxine Hydrochloride 25 MG Oral Tablet Vitamin B-6 25 mg tablet Vitamin B-6 25 mg tablet completed p yridoxine hydrochloride 25 MG Oral Tablet ZAHRAA ([facility]) paroxetine 20 mg tablet 458332 complet ed paroxetine hydrochloride 20 MG Oral Tablet ZAHRAA ([facility]) Insurance Providers Payer name Policy type / Coverage type Policy ID Covered libertarian ID Covered libertarian's relationship to kilgore Policy Kilgore Plan Information MANUEL [id number] SP [id number] MANUEL CARE [place] O [id number] O [id number] Managed Care Manuel P UNAVAILABLE S UNAVAILABLE Medicaid S UNAVAILABLE S UNAVAILA BLE MANUEL [id number] SP [id number] MANUEL [id number] SP [id number] MANUEL [id number] Self [id number] MANUEL [id number] [place] Individual Policy 0 Self 0 MANUEL [id number] Patient [id number] Manuel Care [place] Individual Policy 0 Self 0 [place] Individual Policy 0 Self 0 [place] Care [place] Individual Policy 0 Self 0 [place] Care [place] Individual Policy 0 Self 0 [place] Individual Policy 0 Self 0 [place] Individual Policy 0 Self 0 Medicaid [facility] Other 0 Self 0 MEDICAID [id number] Patient [id number] Medicaid [facility] Other 0 Self 0 Medicaid [facility] Other 0 Self 0 COMM MISSING INFO MISSING Patient HI SSING CDP MEDICAID [id number] Patient [id number] Medicaid [facility] Other 0 Self 0 Problems, Conditions, and Diagnoses Code Display Name Description Problem Type Effective Dates Data Source(s) 646501135 Allergic rhinitis due to house dust mite Allergic rhinitis due to house dust mite Problem 11/12/2020 12:00:00 AM EST MEDENT ([facility]) Note: 4++ reaction to dust mites on scra tch test. [id number] Allergic rhinitis due to pollen Allergic rhiniti s due to pollen Problem 11/12/2020 12:00:00 AM EST MEDENT ([facility]) Note: 3+ positive reaction to weed polle n and tree mix #2 (cherelle, cottonwood, elm, pine) on intradermal test. [id number] Anxiety state Anxiety state Problem 11/12/2020 12:00:00 AM EST MEDENT ([facility]) [id number] Allergic rhinitis Allergic Rhinitis Problem 08/25/2020 12:00:00 AM EST ZAHRAA ([facility]) [id number] Depressive disorder Depressive Disorder Problem 1 10/25/2019 12:00:00 AM EST [facility]HRAA ([facility]) [id number] Allergic rhinitis Allergic Rhinitis Problem 08/25/2020 12:00:00 AM EST ZAHRAA ([facility]) [id number] Depressive disorder Depressive Disorder Problem 1 10/25/2019 12:00:00 AM EST ZAHRAA ([facility]) [id number] Allergic rhinitis Allergic Rhinitis Problem 08/25/2020 12:00:00 AM EST ZAHRAA ([facility]) [id number] Depressive disorder Depressive Disorder Problem 1 10/25/2019 12:00:00 AM EST ZAHRAA ([facility]) [id number] Allergic rhinitis Allergic Rhinitis Problem 08/25/2020 12:00:00 AM EST ZAHRAA ([facility]) [id number] Depressive disorder Depressive Disorder Problem 1 10/25/2019 12:00:00 AM EST [facility] [id number] Allergic rhinitis Allergic Rhinitis Problem 08/25/2020 12:00:00 AM EST ZAHRAA ([facility]) 56878005 Depressive disorder Depressive Disorder Problem 1 10/25/2019 12:00:00 AM EST [facility]AHRAA ([facility]) 03303833 Allergic rhinitis Allergic Rhinitis Problem 08/25/2020 12:00:00 AM EST ZAHRAA ([facility]) [id number] Depressive disorder Depressive Disorder Problem 1 10/25/2019 12:00:00 AM EST [facility]AHRAA ([facility]) Surgeries/Procedures Procedure Description Date Indications Data Source(s) PERCUTANEOUS TESTS W/ALLERGENIC EXTRACTS 11/12/2020 12 :00:00 AM EST MED[facility] ([facility]) INTRACUTANEOUS TESTS W/ALLERGENIC EXTRACTS 11/12/2020 12:00:00 AM EST MED[facility] ([facility]) Results ID Date Data Source [id number] 10/21/2020 01:51:00 PM EST ZAHRAA ([facility]) Name Value Range Interpretation Code Description Data Amie rce(s) Supporting Document(s) Hemoglobin A1c/Hemoglobin.total in Blood Hba1C [facility]) ID Date Data Source [id number] 10/21/2020 01:51:00 PM EST ZAHRAA ([facility]) Name Value Range Interpretation Code Description Data Amie rce(s) Supporting Document(s) Hemoglobin A1c/Hemoglobin.total in Blood Hba1C KELLY ([facility]) ID Date Data Source [id number] 10/21/2020 09:50:00 AM EST ZAHRAA ([facility]) Name Value Range Interpretation Code Description Data Amie rce(s) Supporting Document(s) ferritin 13 NG/mL 8-252 normal Ferritin [facility]) ID Date Data Source [id number] 10/21/2020 09:50:00 [facility] Name Value Range Interpretation Code Description Data Amie rce(s) Supporting Document(s) iron (fe) 102 ug/dL 50-170 normal Iron (Fe) ZAHRAA ([facility]) total iron binding capacity 483 ug/dL 250-450 Above high no rmal Total Iron Binding Capacity ZAHRAA ([facility]) percent saturation 21.1 % 13.2-45.0 normal Percent Saturatio n KELLY ([facility]) ID Date Data Source [id number] 10/21/2020 09:50:00 AM EST KELLY ([facility]) Name Value Range Interpretation Code Description Data Amie rce(s) Supporting Document(s) white blood count 14.7 10 4.0-10.0 Above high normal White Blood Count KELLY ([facility]) red blood count 3.84 10 4.00-5.40 Below low normal Red Blood Coun t KELLY ([facility]) hemoglobin 11.7 g/dL 12.0-15.5 Below low normal Hemoglobin KELLY ( [facility]) hematocrit 36.1 % 36.0-47.0 normal Hematocrit KELLY ([facility]) mean corpuscular volume 94.0 fL 80.0-96.0 normal Mean Corpusc ular Volume KELLY ([facility]) mean corpuscular HGB conc 32.4 g/dL 32.0-36.5 normal Mean Corpu scular HGB Conc KELLY ([facility]) mean corpuscular hemoglobin 30.5 pg 27.0-33.0 normal Mean Corpuscular Hemoglobin ZAHRAA ([facility]) red cell distribution width 13.4 % 11.5-14.5 normal Red Cell Distribution Width ZAHRAA ([facility]) neutrophils % 72.9 % 36.0-66.0 Above high normal Neutrophils % A THENA ([facility]) platelet count, automated 225 10 150-450 normal Platelet C ount, Automated ZAHRAA ([facility]) lymph % 17.1 % 24.0-44.0 Below low normal Lymph % ZAHRAA ( [facility]) eos % 0.4 % 0.0-3.0 normal Eos % [facility]AA ([facility]) mono % 8.4 % 0.0-5.0 Above high normal [place] % ZAHRAA ([facility]) baso % 0.2 % 0.0-1.0 normal Baso % [facility]AHRAA ([facility]) immature granulocyte % 1.0 % 0-3.0 normal Immature Gran ulocyte % ZAHRAA ([facility]) nucleated red blood cell % 0.0 % 0-0 normal Nucleated Red Blood Cell % ZAHRAA ([facility]) neutrophils # 10.7 10 1.5-8.5 Above high normal Neutrophils # A THENA ([facility]) lymph # 2.5 10 1.5-5.0 normal Lymph # ZAHRAA ([facility]) eos # 0.1 10 0.0-0.5 normal Eos # [facility]AA ([facility]) mono # 1.2 10 0.0-0.8 Above high normal [place] # ZAHRAA ([facility]) baso # 0.0 10 0.0-0.2 normal Baso # ZAHRAA ([facility]) ID Date Data Source [id number] 10/21/2020 09:50:00 AM EST ZAHRAA ([facility]) Name Value Range Interpretation Code Description Data Amie rce(s) Supporting Document(s) ferritin 13 NG/mL 8-252 normal Ferritin KELLY ([facility]) ID Date Data Source [id number] 10/21/2020 09:50:00 AM EST ZAHRAA ([facility]) Name Value Range Interpretation Code Description Data Amie rce(s) Supporting Document(s) total iron binding capacity 483 ug/dL 250-450 Above high no rmal Total Iron Binding Capacity ZAHRAA ([facility]) iron (fe) 102 ug/dL 50-170 normal Iron (Fe) KELLY ([facility]) percent saturation 21.1 % 13.2-45.0 normal Percent Saturatio n ZAHRAA ([facility]) ID Date Data Source [id number] 10/21/2020 09:50:00 AM EST KELLY ([facility]) Name Value Range Interpretation Code Description Data Amie rce(s) Supporting Document(s) white blood count 14.7 10 4.0-10.0 Above high normal White Blood Count ZAHRAA ([facility]) hemoglobin 11.7 g/dL 12.0-15.5 Below low normal Hemoglobin ZAHRAA ( [facility]) red blood count 3.84 10 4.00-5.40 Below low normal Red Blood Coun t ZAHRAA ([facility]) hematocrit 36.1 % 36.0-47.0 normal Hematocrit KELLY ([facility]) mean corpuscular hemoglobin 30.5 pg 27.0-33.0 normal Mean Corpuscular Hemoglobin KELLY ([facility]) mean corpuscular HGB conc 32.4 g/dL 32.0-36.5 normal Mean Corpu scular HGB Conc KELLY ([facility]) mean corpuscular volume 94.0 fL 80.0-96.0 normal Mean Corpusc ular Volume KELLY ([facility]) platelet count, automated 225 10 150-450 normal Platelet C ount, Automated KELLY ([facility]) neutrophils % 72.9 % 36.0-66.0 Above high normal Neutrophils % A THENA ([facility]) red cell distribution width 13.4 % 11.5-14.5 normal Red Cell Distribution Width ZAHRAA ([facility]) eos % 0.4 % 0.0-3.0 normal Eos % [facility]AA ([facility]) mono % 8.4 % 0.0-5.0 Above high normal [place] % ZAHRAA ([facility]) lymph % 17.1 % 24.0-44.0 Below low normal Lymph % ZAHRAA ( [facility]) nucleated red blood cell % 0.0 % 0-0 normal Nucleated Red Blood Cell % ZAHRAA ([facility]) immature granulocyte % 1.0 % 0-3.0 normal Immature Gran ulocyte % ZAHRAA ([facility]) baso % 0.2 % 0.0-1.0 normal Baso % ZAHRAA ([facility]) neutrophils # 10.7 10 1.5-8.5 Above high normal Neutrophils # A THENA ([facility]) lymph # 2.5 10 1.5-5.0 normal Lymph # ZAHRAA ([facility]) eos # 0.1 10 0.0-0.5 normal Eos # [facility]AHRAA ([facility]) mono # 1.2 10 0.0-0.8 Above high normal [place] # ZAHRAA ([facility]) baso # 0.0 10 0.0-0.2 normal Baso # ZAHRAA ([facility]) ID Date Data Source [id number] 10/06/2020 01:40:00 PM EST ZAHRAA ([facility]) Name Value Range Interpretation Code Description Data Amie rce(s) Supporting Document(s) thyroid stimulating hormone 0.921 uIU/mL 0.358-3.740 normal Thyroid Stimulating Hormone KELLY ([facility]) ID Date Data Source [id number] 10/06/2020 01:40:00 PM EST ZAHRAA ([facility]) Name Value Range Interpretation Code Description Data Amie rce(s) Supporting Document(s) glucose, fasting 104 mg/dL 70-100 Above high normal Glucose, Fas ting KELLY ([facility]) creatinine for GFR 0.57 mg/dL 0.55-1.30 normal Creatinine for GF R KELLY ([facility]) glomerular filtration rate > 60.0 >60 normal Glomerula r Filtration Rate ZAHRAA ([facility]) blood urea nitrogen 7 mg/dL 7-18 normal Blood Urea Nitro gen ZAHRAA ([facility]) sodium level 139 mEq/L 136-145 normal Sodium Level ZAHRAA ([facility]) potassium serum 4.1 mEq/L 3.5-5.1 normal Potassium Serum ATH NA ([facility]) carbon dioxide level 27 mEq/L 21-32 normal Carbon Dioxide Level KELLY ([facility]) chloride level 106 mEq/L 98-107 normal Chloride Level KELLY [facility] [facility] gap 6 mEq/L 8-16 Below low normal Anion Gap ZAHRAA ( [facility]) AST/SGOT 4 U/L 7-37 Below low normal AST/SGOT ZAHRAA ( [facility]) calcium level 8.6 mg/dL 8.5-10.1 normal Calcium Level ZAHRAA ( [facility]) ALT/SGPT 12 U/L 12-78 normal ALT/SGPT ZAHRAA ([facility]) alkaline phosphatase 76 U/L 45-117 normal Alkaline Phosph atase ZAHRAA ([facility]) total protein 6.3 gm/dL 6.4-8.2 Below low normal Total Protein AT [facility] ([facility]) bilirubin,total 0.3 mg/dL 0.2-1.0 normal Bilirubin,total ATHE ([facility]) albumin 2.5 gm/dL 3.2-5.2 Below low normal Albumin ZAHRAA ( [facility]) albumin/globulin ratio 1.2-2.2 Below low normal Albumin /globulin Ratio ZAHRAA ([facility]) ID Date Data Source [id number] 10/06/2020 01:40:00 PM EST ZAHRAA ([facility]) Name Value Range Interpretation Code Description Data Amie rce(s) Supporting Document(s) white blood count 13.3 10 4.0-10.0 Above high normal White Blood Count ZAHRAA ([facility]) red blood count 3.91 10 4.00-5.40 Below low normal Red Blood Coun t ZAHRAA ([facility]) hemoglobin 11.5 g/dL 12.0-15.5 Below low normal Hemoglobin ZAHRAA ( [facility]) hematocrit 36.9 % 36.0-47.0 normal Hematocrit ZAHRAA ([facility]) mean corpuscular hemoglobin 29.4 pg 27.0-33.0 normal Mean Corpuscular Hemoglobin ZAHRAA ([facility]) mean corpuscular volume 94.4 fL 80.0-96.0 normal Mean Corpusc ular Volume ZAHRAA ([facility]) mean corpuscular HGB conc 31.2 g/dL 32.0-36.5 Below low shaq l Mean Corpuscular HGB Conc ZAHRAA ([facility]) red cell distribution width 13.2 % 11.5-14.5 normal Red Cell Distribution Width ZAHRAA ([facility]) platelet count, automated 236 10 150-450 normal Platelet C ount, Automated ZHARAA ([facility]) neutrophils % 74.2 % 36.0-66.0 Above high normal Neutrophils % A [facility] ([facility]) lymph % 17.2 % 24.0-44.0 Below low normal Lymph % ZAHRAA ( [facility]) mono % 7.3 % 0.0-5.0 Above high normal [place] % ZAHRAA ([facility]) eos % 0.4 % 0.0-3.0 normal Eos % ZAHRAA ([facility]) baso % 0.2 % 0.0-1.0 normal Baso % KELLY ([facility]) nucleated red blood cell % 0.0 % 0-0 normal Nucleated Red Blood Cell % ZAHRAA ([facility]) immature granulocyte % 0.7 % 0-3.0 normal Immature Gran ulocyte % ZAHRAA ([facility]) lymph # 2.3 10 1.5-5.0 normal Lymph # ZAHRAA ([facility]) neutrophils # 9.9 10 1.5-8.5 Above high normal Neutrophils # A THENA ([facility]) mono # 1.0 10 0.0-0.8 Above high normal [place] # ZAHRAA ([facility]) eos # 0.1 10 0.0-0.5 normal Eos # ZAHRAA ([facility]) baso # 0.0 10 0.0-0.2 normal Baso # ZAHRAA ([facility]) ID Date Data Source [id number] 10/06/2020 01:40:00 PM EST KELLY ([facility]) Name Value Range Interpretation Code Description Data Amie rce(s) Supporting Document(s) thyroid stimulating hormone 0.921 uIU/mL 0.358-3.740 normal Thyroid Stimulating Hormone ZAHRAA ([facility]) ID Date Data Source [id number] 10/06/2020 01:40:00 PM EST KELLY ([facility]) Name Value Range Interpretation Code Description Data Amie rce(s) Supporting Document(s) glucose, fasting 104 mg/dL 70-100 Above high normal Glucose, Fas ting ZAHRAA ([facility]) blood urea nitrogen 7 mg/dL 7-18 normal Blood Urea Nitro gen ZAHRAA ([facility]) creatinine for GFR 0.57 mg/dL 0.55-1.30 normal Creatinine for GF R ZAHRAA ([facility]) potassium serum 4.1 mEq/L 3.5-5.1 normal Potassium Serum ATHE NA ([facility]) sodium level 139 mEq/L 136-145 normal Sodium Level ZAHRAA ([facility]) glomerular filtration rate > 60.0 >60 normal Glomerula r Filtration Rate ZAHRAA ([facility]) anion gap 6 mEq/L 8-16 Below low normal Anion Gap ZAHRAA ( [facility]) carbon dioxide level 27 mEq/L 21-32 normal Carbon Dioxide Level ZAHRAA ([facility]) chloride level 106 mEq/L 98-107 normal Chloride Level ZAHRAA ([facility]) calcium level 8.6 mg/dL 8.5-10.1 normal Calcium Level ZAHRAA ( [facility]) total protein 6.3 gm/dL 6.4-8.2 Below low normal Total Protein AT [facility]) AST/SGOT 4 U/L 7-37 Below low normal AST/SGOT KELLY ( [facility]) bilirubin,total 0.3 mg/dL 0.2-1.0 normal Bilirubin,total ATHE NA ([facility]) alkaline phosphatase 76 U/L 45-117 normal Alkaline Phosph atase ZAHRAA ([facility]) ALT/SGPT 12 U/L 12-78 normal ALT/SGPT ZAHRAA ([facility]) albumin 2.5 gm/dL 3.2-5.2 Below low normal Albumin ZAHRAA ( [facility]) albumin/globulin ratio 1.2-2.2 Below low normal Albumin /globulin Ratio KELLY ([facility]) ID Date Data Source [id number] 10/06/2020 01:40:00 PM EST ZAHRAA ([facility]) Name Value Range Interpretation Code Description Data Amie rce(s) Supporting Document(s) red blood count 3.91 10 4.00-5.40 Below low normal Red Blood Coun t ZAHRAA ([facility]) hemoglobin 11.5 g/dL 12.0-15.5 Below low normal Hemoglobin ZAHRAA ( [facility]) white blood count 13.3 10 4.0-10.0 Above high normal White Blood Count KELLY ([facility]) mean corpuscular volume 94.4 fL 80.0-96.0 normal Mean Corpusc ular Volume KELLY ([facility]) mean corpuscular HGB conc 31.2 g/dL 32.0-36.5 Below low shaq l Mean Corpuscular HGB Conc ZAHRAA ([facility]) mean corpuscular hemoglobin 29.4 pg 27.0-33.0 normal Mean Corpuscular Hemoglobin ZAHRAA ([facility]) hematocrit 36.9 % 36.0-47.0 normal Hematocrit KELLY ([facility]) platelet count, automated 236 10 150-450 normal Platelet C ount, Automated ZAHRAA ([facility]) red cell distribution width 13.2 % 11.5-14.5 normal Red Cell Distribution Width ZAHRAA ([facility]) lymph % 17.2 % 24.0-44.0 Below low normal Lymph % ZAHRAA ( [facility]) neutrophils % 74.2 % 36.0-66.0 Above high normal Neutrophils % A THENA ([facility]) eos % 0.4 % 0.0-3.0 normal Eos % ZAHRAA ([facility]) mono % 7.3 % 0.0-5.0 Above high normal [place] % ZAHRAA ([facility]) baso % 0.2 % 0.0-1.0 normal Baso % ZAHRAA ([facility]) immature granulocyte % 0.7 % 0-3.0 normal Immature Gran ulocyte % ZAHRAA ([facility]) nucleated red blood cell % 0.0 % 0-0 normal Nucleated Red Blood Cell % ZAHRAA ([facility]) mono # 1.0 10 0.0-0.8 Above high normal [place] # ZAHRAA ([facility]) neutrophils # 9.9 10 1.5-8.5 Above high normal Neutrophils # A THENA ([facility]) lymph # 2.3 10 1.5-5.0 normal Lymph # ZAHRAA ([facility]) baso # 0.0 10 0.0-0.2 normal Baso # ZAHRAA ([facility]) eos # 0.1 10 0.0-0.5 normal Eos # ZAHRAA ([facility]) ID Date Data Source [id number] 10/06/2020 01:40:00 PM EST ZAHRAA ([facility]) Name Value Range Interpretation Code Description Data Amie rce(s) Supporting Document(s) thyroid stimulating hormone 0.921 uIU/mL 0.358-3.740 normal Thyroid Stimulating Hormone KELLY ([facility]) ID Date Data Source [id number] 10/06/2020 01:40:00 PM EST ZAHRAA ([facility]) Name Value Range Interpretation Code Description Data Amie rce(s) Supporting Document(s) glucose, fasting 104 mg/dL 70-100 Above high normal Glucose, Fas ting KELLY ([facility]) glomerular filtration rate > 60.0 >60 normal Glomerula r Filtration Rate KELLY ([facility]) blood urea nitrogen 7 mg/dL 7-18 normal Blood Urea Nitro gen ZAHRAA ([facility]) creatinine for GFR 0.57 mg/dL 0.55-1.30 normal Creatinine for GF R KELLY ([facility]) anion gap 6 mEq/L 8-16 Below low normal Anion Gap KELLY ( [facility]) potassium serum 4.1 mEq/L 3.5-5.1 normal Potassium Serum ATH NA ([facility]) chloride level 106 mEq/L 98-107 normal Chloride Level KELLY ([facility]) carbon dioxide level 27 mEq/L 21-32 normal Carbon Dioxide Level ZAHRAA ([facility]) sodium level 139 mEq/L 136-145 normal Sodium Level ZAHRAA ([facility]) alkaline phosphatase 76 U/L 45-117 normal Alkaline Phosph atase ZAHRAA ([facility]) calcium level 8.6 mg/dL 8.5-10.1 normal Calcium Level ZAHRAA ( [facility]) ALT/SGPT 12 U/L 12-78 normal ALT/SGPT ZAHRAA ([facility]) AST/SGOT 4 U/L 7-37 Below low normal AST/SGOT ZAHRAA ( [facility]) albumin 2.5 gm/dL 3.2-5.2 Below low normal Albumin ZAHRAA ( [facility]) total protein 6.3 gm/dL 6.4-8.2 Below low normal Total Protein AT [facility]) albumin/globulin ratio 1.2-2.2 Below low normal Albumin /globulin Ratio ZAHRAA ([facility]) bilirubin,total 0.3 mg/dL 0.2-1.0 normal Bilirubin,total ATHE NA ([facility]) ID Date Data Source [id number] 10/06/2020 01:40:00 PM EST ZAHRAA ([facility]) Name Value Range Interpretation Code Description Data Amie rce(s) Supporting Document(s) red blood count 3.91 10 4.00-5.40 Below low normal Red Blood Coun t ZAHRAA ([facility]) hemoglobin 11.5 g/dL 12.0-15.5 Below low normal Hemoglobin ZAHRAA ( [facility]) white blood count 13.3 10 4.0-10.0 Above high normal White Blood Count ZAHRAA ([facility]) hematocrit 36.9 % 36.0-47.0 normal Hematocrit ZAHRAA ([facility]) mean corpuscular hemoglobin 29.4 pg 27.0-33.0 normal Mean Corpuscular Hemoglobin ZAHRAA ([facility]) mean corpuscular volume 94.4 fL 80.0-96.0 normal Mean Corpusc ular Volume ZAHRAA ([facility]) mean corpuscular HGB conc 31.2 g/dL 32.0-36.5 Below low shaq l Mean Corpuscular HGB Conc ZAHRAA ([facility]) red cell distribution width 13.2 % 11.5-14.5 normal Red Cell Distribution Width ZAHRAA ([facility]) lymph % 17.2 % 24.0-44.0 Below low normal Lymph % ZAHRAA ( [facility]) mono % 7.3 % 0.0-5.0 Above high normal [place] % ZAHRAA ([facility]) platelet count, automated 236 10 150-450 normal Platelet C ount, Automated ZAHRAA ([facility]) neutrophils % 74.2 % 36.0-66.0 Above high normal Neutrophils % A [facility] ([facility]) nucleated red blood cell % 0.0 % 0-0 normal Nucleated Red Blood Cell % ZAHRAA ([facility]) eos % 0.4 % 0.0-3.0 normal Eos % ZAHRAA ([facility]) immature granulocyte % 0.7 % 0-3.0 normal Immature Gran ulocyte % AZHRAA ([facility]) baso % 0.2 % 0.0-1.0 normal Baso % ZAHRAA ([facility]) lymph # 2.3 10 1.5-5.0 normal Lymph # ZAHRAA ([facility]) mono # 1.0 10 0.0-0.8 Above high normal [place] # ZAHRAA ([facility]) neutrophils # 9.9 10 1.5-8.5 Above high normal Neutrophils # A THENA ([facility]) eos # 0.1 10 0.0-0.5 normal Eos # ZAHRAA ([facility]) baso # 0.0 10 0.0-0.2 normal Baso # ZAHRAA ([facility]) ID Date Data Source [id number] 10/06/2020 01:40:00 PM EST KELLY ([facility]) Name Value Range Interpretation Code Description Data Amie rce(s) Supporting Document(s) thyroid stimulating hormone 0.921 uIU/mL 0.358-3.740 normal Thyroid Stimulating Hormone KELLY ([facility]) ID Date Data Source [id number] 10/06/2020 01:40:00 PM EST KELLY ([facility]) Name Value Range Interpretation Code Description Data Amie rce(s) Supporting Document(s) glomerular filtration rate > 60.0 >60 normal Glomerula r Filtration Rate KELLY ([facility]) creatinine for GFR 0.57 mg/dL 0.55-1.30 normal Creatinine for GF R KELLY ([facility]) glucose, fasting 104 mg/dL 70-100 Above high normal Glucose, Fas ting KELLY ([facility]) blood urea nitrogen 7 mg/dL 7-18 normal Blood Urea Nitro gen ZAHRAA ([facility]) carbon dioxide level 27 mEq/L 21-32 normal Carbon Dioxide Level KELLY ([facility]) potassium serum 4.1 mEq/L 3.5-5.1 normal Potassium Serum [facility] ([facility]) chloride level 106 mEq/L 98-107 normal Chloride Level KELLY ([facility]) anion gap 6 mEq/L 8-16 Below low normal Anion Gap KELLY ( [facility]) sodium level 139 mEq/L 136-145 normal Sodium Level ZAHRAA ([facility]) AST/SGOT 4 U/L 7-37 Below low normal AST/SGOT KELLY ( [facility]) bilirubin,total 0.3 mg/dL 0.2-1.0 normal Bilirubin,total [facility] ([facility]) calcium level 8.6 mg/dL 8.5-10.1 normal Calcium Level KELLY ( [facility]) alkaline phosphatase 76 U/L 45-117 normal Alkaline Phosph atase [facility]) ALT/SGPT 12 U/L 12-78 normal ALT/SGPT KELLY ([facility]) total protein 6.3 gm/dL 6.4-8.2 Below low normal Total Protein AT [facility]) albumin 2.5 gm/dL 3.2-5.2 Below low normal Albumin KELLY ( [facility]) albumin/globulin ratio 1.2-2.2 Below low normal Albumin /globulin Ratio ZAHRAA ([facility]) ID Date Data Source [id number] 04/24/2020 08:40:00 AM EDT [facility] Name Value Range Interpretation Code Description Data Amie rce(s) Supporting Document(s) HCT 40.5 % 36.0-47.0 N [facility] HGB 12.9 g/dL 12.0-15.5 N [facility] MCH 31.9 G/DL pg 32.0-36.5 L [facility] MCHC 28.2 PG % 27.0-33.0 N [facility] PLATELETS 257 10 10*3/mm3 150-450 N [facility] RBC 4.58 10 10*6/mm3 4.00-5.40 N [facility] RDW 13.3 % 11.5-14.5 N [facility] WBC TOTAL 8.2 4.0-10.0 N [facility] ID Date Data Source [id number] 04/24/2020 08:40:00 AM EDT [facility] Name Value Range Interpretation Code Description Data Amie rce(s) Supporting Document(s) BG FASTING 80 mg/dL 70-100 N [facility] ID Date Data Source [id number] 03/22/2020 12:00:00 AM EDT [facility] Name Value Range Interpretation Code Description Data Amie rce(s) Supporting Document(s) SARS coronavirus 2 RNA [Presence] in Res piratory specimen by JORGE LUIS with probe detection [facility] This lab was ordered by Leatha Patterson and reported by [email or web address]. Procedure Social History Code Duration Value Status Description Data Source(s ) Smoking 11/12/2020 12:00:00 AM EST Patient has never smoked co mpleted Patient has never smoked [facility] ([facility] ) Vital Signs ID Date Data Source [...] blood pressure 111 mm[Hg] 111 mm[Hg] A [facility] ([facility]) Body mass index (BMI) [Ratio] 31.5 kg/m2 31.5 k g/m2 KELLY ([facility]) Body height 64 [in_i] 64 [in_i] ZAHRAA ([facility]) Diastolic blood pressure 58 mm[Hg] 58 mm[Hg] ZAHRAA ([facility]) Body weight 2934 [oz_av] 2934 [oz_av] ZAHRAA ([facility]) Systolic blood pressure 111 mm[Hg] 111 mm[Hg] A [facility] ([facility]) Body mass index (BMI) [Ratio] 31.5 kg/m2 31.5 k g/m2 ZAHRAA ([facility]) Body height 64 [in_i] 64 [in_i] ZAHRAA ([facility]) Diastolic blood pressure 58 mm[Hg] 58 mm[Hg] ZAHRAA ([facility]) Body weight 2934 [oz_av] 2934 [oz_av] ZAHRAA ([facility]) Systolic blood pressure 111 mm[Hg] 111 mm[Hg] A [facility] ([facility]) Body mass index (BMI) [Ratio] 31.5 kg/m2 31.5 k g/m2 ZAHRAA ([facility]) Body height 64 [in_i] 64 [in_i] ZAHRAA ([facility]) Diastolic blood pressure 58 mm[Hg] 58 mm[Hg] ZAHRAA ([facility]) Body weight 2934 [oz_av] 2934 [oz_av] ZAHRAA ([facility]) Systolic blood pressure 111 mm[Hg] 111 mm[Hg] A [facility] ([facility]) Body mass index (BMI) [Ratio] 31.5 kg/m2 31.5 k g/m2 ZAHRAA ([facility]) Body height 64 [in_i] 64 [in_i] ZAHRAA ([facility]) Diastolic blood pressure 58 mm[Hg] 58 mm[Hg] ZAHRAA ([facility]) Body weight 2934 [oz_av] 2934 [oz_av] ZAHRAA ([facility]) Body weight 2934 [oz_av] 2934 [oz_av] ZAHRAA ([facility]) Systolic blood pressure 111 mm[Hg] 111 mm[Hg] [facility] Body mass index (BMI) [Ratio] 31.5 kg/m2 31.5 k g/m2 ZAHRAA ([facility]) Body height 64 [in_i] 64 [in_i] ZAHRAA ([facility]) Diastolic blood pressure 58 mm[Hg] 58 mm[Hg] ZAHRAA ([facility]) Body weight 2656 [oz_av] 2656 [oz_av] ZAHRAA ([facility]) Systolic blood pressure 99 mm[Hg] 99 mm[Hg] A THENA ([facility]) Body mass index (BMI) [Ratio] 28.5 kg/m2 28.5 k g/m2 ZAHRAA ([facility]) Body height 64 [in_i] 64 [in_i] ZAHRAA ([facility]) Diastolic blood pressure 68 mm[Hg] 68 mm[Hg] ZAHRAA ([facility]) Body weight 2656 [oz_av] 2656 [oz_av] ZAHRAA ([facility]) Systolic blood pressure 99 mm[Hg] 99 mm[Hg] A [facility] ([facility]) Body mass index (BMI) [Ratio] 28.5 kg/m2 28.5 k g/m2 ZAHRAA ([facility]) Body height 64 [in_i] 64 [in_i] ZAHRAA ([facility]) Diastolic blood pressure 68 mm[Hg] 68 mm[Hg] ZAHRAA ([facility]) Body weight 2656 [oz_av] 2656 [oz_av] ZAHRAA ([facility]) Systolic blood pressure 99 mm[Hg] 99 mm[Hg] [facility] Body mass index (BMI) [Ratio] 28.5 kg/m2 28.5 k g/m2 ZAHRAA ([facility]) Body height 64 [in_i] 64 [in_i] ZAHRAA ([facility]) Diastolic blood pressure 68 mm[Hg] 68 mm[Hg] ZAHRAA ([facility]) Body weight 2656 [oz_av] 2656 [oz_av] ZAHRAA ([facility]) Systolic blood pressure 99 mm[Hg] 99 mm[Hg] A [facility] ([facility]) Body mass index (BMI) [Ratio] 28.5 kg/m2 28.5 k g/m2 ZAHRAA ([facility]) Body height 64 [in_i] 64 [in_i] ZAHRAA ([facility]) Diastolic blood pressure 68 mm[Hg] 68 mm[Hg] ZAHRAA ([facility]) Body weight 2656 [oz_av] 2656 [oz_av] ZAHRAA ([facility]) Systolic blood pressure 99 mm[Hg] 99 mm[Hg] A THENA ([facility]) Body mass index (BMI) [Ratio] 28.5 kg/m2 28.5 k g/m2 ZAHRAA ([facility]) Body height 64 [in_i] 64 [in_i] ZAHRAA ([facility]) Diastolic blood pressure 68 mm[Hg] 68 mm[Hg] ZAHRAA ([facility]) Body weight 2656 [oz_av] 2656 [oz_av] ZAHRAA ([facility]) Systolic blood pressure 99 mm[Hg] 99 mm[Hg] A [facility] ([facility]) Body mass index (BMI) [Ratio] 28.5 kg/m2 28.5 k g/m2 ZAHRAA ([facility]) Body height 64 [in_i] 64 [in_i] ZAHRAA ([facility]) Diastolic blood pressure 68 mm[Hg] 68 mm[Hg] ZAHRAA ([facility]) Patient Treatment Plan of Care Planned Activity Planned Date Details Description Data Source (s) Pyridoxine Hydrochloride 25 MG Oral Tablet [facility] ([facility] [facility] paroxetine 20 mg tablet ATHE NA ([facility]) Pyridoxine Hydrochloride 25 MG Oral Tablet ZAHRAA ([facility]) paroxetine 20 mg tablet ATHE NA ([facility]) Pyridoxine Hydrochloride 25 MG Oral Tablet ZAHRAA ([facility]) paroxetine 20 mg tablet ATHE NA ([facility]) Pyridoxine Hydrochloride 25 MG Oral Tablet ZAHRAA ([facility]) paroxetine 20 mg tablet ATHE NA ([facility]) Pyridoxine Hydrochloride 25 MG Oral Tablet ZAHRAA ([facility]) paroxetine 20 mg tablet ATHE NA ([facility]) paroxetine 20 mg tablet ATHE NA ([facility])
[2020-12-02 19:36] LABS: ALBUMIN 2.5 GM/DL (3.2-5.2); ALT/SGPT 15 U/L (12-78); BILIRUBIN,DIRECT 0.1 MG/DL (0.0-0.2); BILIRUBIN,TOTAL 0.2 MG/DL (0.2-1.0); BLOOD UREA NITROGEN 8 MG/DL (7-18); CALCIUM LEVEL 8.4 MG/DL (8.5-10.1); CARBON DIOXIDE LEVEL 25 MEQ/L (21-32); CHLORIDE LEVEL 107 MEQ/L (98-107); CK-MB VALUE MASS < 1.0 NG/ML (<3.6); CPK CREATINE PHOSPHOKINASE 53 U/L (26-192); CREATININE FOR GFR 0.65 MG/DL (0.55-1.30); GLOMERULAR FILTRATION RATE > 60.0 (>60); GLUCOSE, FASTING 75 MG/DL (70-100); MAGNESIUM LEVEL 1.9 MG/DL (1.8-2.4); MB/CK RELATIVE INDEX 1.89 (< OR =4); SODIUM LEVEL 140 MEQ/L (136-145); TOTAL PROTEIN 6.5 GM/DL (6.4-8.2); TROPONIN I < 0.02 NG/ML (< 0.10)
[2020-12-02 20:25] LABS: APPEARANCE, URINE HAZY (CLEAR); BACTERIA, URINE AUTO NEGATIVE (NEGATIVE); BILIRUBIN, URINE AUTO NEGATIVE (NEGATIVE); BLOOD, URINE BLOOD NEGATIVE (NEGATIVE); COLOR, URINE YELLOW (YELLOW); GLUCOSE, URINE (UA) AUTO NEGATIVE (NEGATIVE); KETONE, URINE AUTO NEGATIVE (NEGATIVE); LEUKOCYTE ESTERASE, URINE AUTO 3+ (NEGATIVE); MUCUS, URINE SMALL (NEGATIVE); NITRITE, URINE AUTO NEGATIVE (NEGATIVE); PROTEIN, URINE AUTO NEGATIVE (NEGATIVE); RBC, URINE AUTO 2 /HPF (0-3); SPECIFIC GRAVITY URINE AUTO 1.017 (1.002-1.035); SQUAMOUS EPITHELIAL CELL UR AU 8 /HPF (0-6); WBC, URINE AUTO 5 /HPF (0-3)
--- NOTE | 2020-12-02 20:31 | REPVR ---
PROCEDURE INFORMATION: Exam: US Duplex Left Upper Extremity Veins, Limited Exam date and time: 12/02/2020 7:53 PM Age: 20 years old Clinical indication: Pain; Arm, upper; Left; Additional info: L arm decr. Sensation, pain L shoulder, +preg TECHNIQUE: Imaging protocol: Real-time Duplex ultrasound of the Left Upper Extremity with 2-D contreras scale, color Doppler flow and spectral waveform analysis with image documentation. Limited exam focused on the left upper extremity veins. COMPARISON: No relevant prior studies available. FINDINGS: Left deep veins: Unremarkable. Axillary and brachial veins are patent throughout without thrombus. Normal Doppler waveforms. Normal compressibility and/or augmentation response. Visualized internal jugular and subclavian veins are patent. Left superficial veins: Unremarkable. Visualized cephalic and basilic veins are patent without thrombus. Soft tissues: Unremarkable. IMPRESSION: No evidence of deep vein thrombosis. Electronically signed by: Matthew Che On 12/02/2020 20:31:15 PM
--- NOTE | 2020-12-02 21:48 | REPVR ---
PROCEDURE INFORMATION: Exam: MR Head Without Contrast Exam date and time: 12/02/2020 9:42 PM Age: 20 years old Clinical indication: Other: Lue tingling, L facial tremor TECHNIQUE: Imaging protocol: MR of the head without contrast. COMPARISON: No relevant prior studies available. FINDINGS: Brain: No acute infarct. No hemorrhage. Cerebral ventricles: Normal. No ventriculomegaly. Bones/joints: Unremarkable. Paranasal sinuses: Normal as visualized. No acute sinusitis. Mastoid air cells: Normal as visualized. No mastoid effusion. Orbital cavity: Unremarkable. Soft tissues: Unremarkable. IMPRESSION: No acute intracranial abnormality. Electronically signed by: Matthew Che On 12/02/2020 21:48:16 PM
[2020-12-02 22:05] VITALS: BP 128/75
--- NOTE | 2020-12-03 07:40 | ECGEPIP ---
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
== END 2020-12-02 22:07 | disposition home or self-care (01) ==
LOC: M ED 17:02
DX: O99.891 Other specified diseases and conditions complicating pregnancy (principal); R20.2 Paresthesia of skin; Z3A.35 35 weeks gestation of pregnancy; Z91.013 Allergy to seafood

== ENCOUNTER → 2020-12-10 | Outpatient (REF) | payer OTHER | LOC: M LAB REF 13:04 | PROVIDERS: ATTEND Advanced Practice Midwife | DX: Z34.83 Encounter for supervision of other normal pregnancy, third trimester (principal) ==

== ENCOUNTER 2020-12-22 21:44 | Outpatient (CLI) | payer OTHER ==
[~2020-12-22] VITALS: Ht 162.6 cm; Wt 94.7 kg
[2020-12-22 22:05] VITALS: BP 106/68
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
== END 2020-12-22 23:25 | disposition home or self-care (01) ==
LOC: M LDO 21:44
PROVIDERS: ATTEND Advanced Practice Midwife
DX: O47.1 False labor at or after 37 completed weeks of gestation (principal); Z3A.38 38 weeks gestation of pregnancy

== ENCOUNTER → 2021-02-19 | Outpatient (CLI) | payer OTHER ==
--- NOTE | 2021-02-19 15:41 | REP ---
INDICATION: SPRAIN OF UNSPECIFIED LIGAMENT OF LEFT ANKLE, INIT ENCNTR COMPARISON: None. TECHNIQUE: AP, lateral, bilateral oblique views. FINDINGS: No acute fracture or dislocation. Skeletal structures and joint spaces are intact and normal. Ankle mortise appears stable. No subcutaneous emphysema or radiodense foreign body. IMPRESSION: Normal left ankle radiograph series. <Electronically signed by Mo Salazar > 02/19/21 [id number]
== END ==
LOC: M RAD 15:06
PROVIDERS: ATTEND Physician Assistant
DX: S93.402A Sprain of unspecified ligament of left ankle, initial encounter (principal); X58.XXXA Exposure to other specified factors, initial encounter; Y92.89 Other specified places as the place of occurrence of the external cause; Y93.9 Activity, unspecified; Y99.9 Unspecified external cause status

== ENCOUNTER 2021-03-15 10:29 | Emergency (ER) | payer OTHER ==
[~2021-03-15] VITALS: Ht 162.6 cm; Wt 97.6 kg
[2021-03-15] MEDS ORDERED: PARO20TA3 PO (10:35)
[2021-03-15] MEDS ORDERED: MIRE1IUD (10:35)
[2021-03-15] MEDS ORDERED: DEPO150I12 IM (10:38)
--- NOTE | 2021-03-15 11:30 | REP ---
INDICATION: pain, injury COMPARISON: None. TECHNIQUE: AP, lateral, bilateral oblique views right foot. FINDINGS: The osseous structures and joint spaces are intact and normal. There is no evidence for acute fracture or dislocation. Surrounding soft tissues are unremarkable. No subcutaneous emphysema or radiodense foreign body. IMPRESSION: . No acute fracture or dislocation. <Electronically signed by Mo Salazar > 03/15/21 [id number]
[2021-03-15] MEDS ORDERED: ACETAMINOPHEN 325 MG TAB PO ONE (12:10)
--- NOTE | 2021-03-15 12:53 | REP ---
INDICATION: R calf pain, tingling, numbness COMPARISON: None. TECHNIQUE: [place] scale and color Doppler evaluation using linear high frequency transducer. FINDINGS: Ultrasound examination of the right lower extremity deep venous structures from the common femoral vein through the calf/ankle to include the peroneal, and tibial veins demonstrates normal compressibility flow and wave patterns in response to respiration and augmentation. There is no evidence for deep venous thrombosis. Contralateral CFV is patent and normal. IMPRESSION: No evidence for deep venous thrombosis. <Electronically signed by Mo Salazar > 03/15/21 [id number]
[2021-03-15 13:11] VITALS: BP 109/70
== END 2021-03-15 13:13 | disposition home or self-care (01) ==
LOC: M ED 10:29
DX: M79.661 Pain in right lower leg (principal); M79.671 Pain in right foot; Z91.013 Allergy to seafood

== ENCOUNTER 2021-05-13 12:27 | Emergency (ER) | payer OTHER ==
[~2021-05-13] VITALS: Ht 162.6 cm; Wt 103.6 kg
[2021-05-13 12:27] VITALS: BP 113/65
[~2021-05-13 12:27] MED LIST changes: +DEPO150I12 IM; +MIRE1IUD; +PARO20TA3 PO
[2021-05-13] MEDS ORDERED: MIRE1IUD IU (12:38)
--- NOTE | 2021-05-13 13:12 | REP ---
INDICATION: crush injury COMPARISON: None. TECHNIQUE: Four views right hand. FINDINGS: There is no evidence of acute fracture, dislocation, or intrinsic bone disease.The joint spaces are unremarkable. IMPRESSION: No fracture or dislocation. <Electronically signed by Alfa Ogden > 05/13/21 [id number]
== END 2021-05-13 14:34 | disposition home or self-care (01) ==
LOC: M ED 12:27
DX: S60.221A Contusion of right hand, initial encounter (principal); W23.1XXA Caught, crushed, jammed, or pinched between stationary objects, initial encounter; Y99.0 Civilian activity done for income or pay; Z91.013 Allergy to seafood; Z79.899 Other long term (current) drug therapy

== ENCOUNTER 2021-08-04 09:15 | Outpatient (RCR) | payer OTHER ==
[~2021-08-04 09:15] MED LIST changes: +MIRE1IUD IU
== END 2021-08-09 ==
LOC: M PT 09:15
PROVIDERS: ATTEND Orthopaedic Surgery Sports Medicine
DX: Z47.89 Encounter for other orthopedic aftercare (principal); S60.221A Contusion of right hand, initial encounter; X58.XXXA Exposure to other specified factors, initial encounter; Y92.9 Unspecified place or not applicable

== ENCOUNTER 2021-08-13 10:35 | Outpatient (RCR) | payer OTHER | END 2021-09-08 | LOC: M PT 10:35 | PROVIDERS: ATTEND Orthopaedic Surgery Sports Medicine | DX: S60.211A Contusion of right wrist, initial encounter (principal); X58.XXXA Exposure to other specified factors, initial encounter ==

== ENCOUNTER 2022-04-19 18:47 | Emergency (ER) | payer OTHER ==
[~2022-04-19] VITALS: Ht 162.6 cm; Wt 105.5 kg
[2022-04-19 18:47] VITALS: BP 114/80
[2022-04-19] MEDS ORDERED: CEPH500C PO (21:29)
== END 2022-04-19 22:03 | disposition home or self-care (01) ==
LOC: M ED 18:47
DX: J02.9 Acute pharyngitis, unspecified (principal); F17.200 Nicotine dependence, unspecified, uncomplicated; Z91.013 Allergy to seafood

== ENCOUNTER 2022-08-15 17:18 | Emergency (ER) | payer OTHER ==
[~2022-08-15] VITALS: Ht 162.6 cm; Wt 103.2 kg
[~2022-08-15 17:18] MED LIST changes: +CEPH500C PO
[2022-08-15 18:10] LABS: BASO % 0.3 % (0.0-1.0); EOS # 0.1 10^3/uL (0.0-0.5); HEMATOCRIT 37.3 % (36.0-47.0); HEMOGLOBIN 11.9 g/dl (12.0-15.5); LYMPH # 3.3 10^3/uL (1.5-5.0); MEAN CORPUSCULAR HEMOGLOBIN 27.5 pg (27.0-33.0); MEAN CORPUSCULAR HGB CONC 31.9 g/dl (32.0-36.5); MEAN CORPUSCULAR VOLUME 86.3 fl (80.0-96.0); MONO # 0.7 10^3/uL (0.0-0.8); MONO % 7.3 % (2.0-8.0); NEUTROPHILS # 5.3 10^3/uL (1.5-8.5); PLATELET COUNT, AUTOMATED 275 10^3/uL (150-450); RED BLOOD COUNT 4.32 10^6/uL (4.00-5.40); WHITE BLOOD COUNT 9.5 10^3/uL (4.0-10.0)
[2022-08-15 18:34] LABS: HCG, SERUM QUALITATIVE NEGATIVE (NEGATIVE)
[2022-08-15 18:45] LABS: ALBUMIN 3.2 GM/DL (3.2-5.2); ALT/SGPT 18 U/L (12-78); BILIRUBIN,TOTAL 0.1 MG/DL (0.2-1.0); BLOOD UREA NITROGEN 12 MG/DL (7-18); CALCIUM LEVEL 8.8 MG/DL (8.5-10.1); CARBON DIOXIDE LEVEL 28 MEQ/L (21-32); CHLORIDE LEVEL 107 MEQ/L (98-107); CREATININE FOR GFR 0.82 MG/DL (0.55-1.30); GLOMERULAR FILTRATION RATE > 60.0 (>60); GLUCOSE, FASTING 113 MG/DL (70-100); LIPASE 139 U/L (73-393); SODIUM LEVEL 139 MEQ/L (136-145); TOTAL PROTEIN 6.4 GM/DL (6.4-8.2)
[2022-08-15 20:43] LABS: GC DNA AMPLIFICATION NEGATIVE (NEGATIVE)
[2022-08-15 20:47] VITALS: BP 114/74
== END 2022-08-15 20:50 | disposition home or self-care (01) ==
LOC: M ED 17:18
DX: R10.2 Pelvic and perineal pain (principal); R11.2 Nausea with vomiting, unspecified; Z91.048 Other nonmedicinal substance allergy status; Z91.013 Allergy to seafood

== ENCOUNTER 2022-09-23 15:43 | Emergency (ER) | payer OTHER ==
[~2022-09-23] VITALS: Ht 162.6 cm; Wt 101.6 kg
[2022-09-23] MEDS ORDERED: DERMABOND TOPICAL SKIN ADHESIVE TOP ONE (17:50)
[2022-09-23 18:27] VITALS: BP 135/78
== END 2022-09-23 18:29 | disposition home or self-care (01) ==
LOC: M ED 15:43
DX: S61.213A Laceration without foreign body of left middle finger without damage to nail, initial encounter (principal); W26.0XXA Contact with knife, initial encounter; Y92.9 Unspecified place or not applicable; Y93.G1 Activity, food preparation and clean up; Y99.0 Civilian activity done for income or pay; Z91.013 Allergy to seafood

== ENCOUNTER 2022-11-24 19:19 | Emergency (ER) | payer MEDICAID, OTHER ==
[~2022-11-24] VITALS: Ht 162.6 cm; Wt 104.2 kg
[2022-11-24 19:19] VITALS: BP 119/69
== END 2022-11-25 01:41 | disposition home or self-care (01) ==
LOC: M ED 19:19
DX: J06.9 Acute upper respiratory infection, unspecified (principal); Z91.013 Allergy to seafood

== ENCOUNTER 2022-12-18 22:48 | Emergency (ER) | payer MEDICAID ==
[~2022-12-18] VITALS: Ht 162.6 cm; Wt 104.1 kg
[2022-12-19 03:17] VITALS: BP 120/89
== END 2022-12-19 03:52 | disposition home or self-care (01) ==
LOC: M ED 22:48
DX: S92.212A Displaced fracture of cuboid bone of left foot, initial encounter for closed fracture (principal); S93.402A Sprain of unspecified ligament of left ankle, initial encounter; W01.0XXA Fall on same level from slipping, tripping and stumbling without subsequent striking against object, initial encounter; Y92.410 Unspecified street and highway as the place of occurrence of the external cause; Z91.013 Allergy to seafood; Z79.3 Long term (current) use of hormonal contraceptives

== ENCOUNTER → 2023-02-09 | Outpatient (CLI) | payer OTHER | LOC: M SOG 07:59 | PROVIDERS: ATTEND Orthopaedic Surgery | DX: S92.212D Displaced fracture of cuboid bone of left foot, subsequent encounter for fracture with routine healing (principal) ==

== ENCOUNTER 2023-03-02 08:30 | Outpatient (RCR) | payer OTHER | END 2023-03-09 | LOC: M PT 08:30 | PROVIDERS: ATTEND Orthopaedic Surgery Adult Reconstructive Orthopaedic Surgery | DX: S93.402A Sprain of unspecified ligament of left ankle, initial encounter (principal) ==

== ENCOUNTER 2023-06-23 19:04 | Emergency (ER) | payer OTHER ==
[~2023-06-23] VITALS: Ht 162.6 cm; Wt 98.6 kg
[~2023-06-23 19:04] MED LIST changes: +MIRA3350 PO; +MULTTAB20 PO
[2023-06-23 19:06] VITALS: BP 108/56; TEMP 98.8; O2SAT 100
[2023-06-23 20:16] LABS: BASO % 0.1 % (0.0-1.0); EOS # 0.1 10^3/uL (0.0-0.5); EOS % 0.5 % (0.0-3.0); HEMATOCRIT 38.4 % (36.0-47.0); HEMOGLOBIN 12.7 g/dl (12.0-15.5); LYMPH # 3.2 10^3/uL (1.5-5.0); LYMPH % 26.5 % (24.0-44.0); MEAN CORPUSCULAR HEMOGLOBIN 29.7 pg (27.0-33.0); MEAN CORPUSCULAR HGB CONC 33.1 g/dl (32.0-36.5); MEAN CORPUSCULAR VOLUME 89.7 fl (80.0-96.0); MONO % 8.7 % (2.0-8.0); NEUTROPHILS # 7.6 10^3/uL (1.5-8.5); NEUTROPHILS % 63.9 % (36.0-66.0); PLATELET COUNT, AUTOMATED 230 10^3/uL (150-450); RED BLOOD COUNT 4.28 10^6/uL (4.00-5.40); WHITE BLOOD COUNT 11.9 10^3/uL (4.0-10.0)
[2023-06-23 20:37] LABS: LIPASE 51 U/L (12-53)
[2023-06-23 20:40] LABS: ALBUMIN 2.9 G/DL (3.2-5.2); ALKALINE PHOSPHATASE 59 U/L (46-116); ALT/SGPT 23 U/L (7.0-40); AST/SGOT < 8 U/L (<34); BILIRUBIN,DIRECT < 0.1 MG/DL (<0.4); BILIRUBIN,TOTAL 0.3 MG/DL (0.3-1.2); BLOOD UREA NITROGEN 13 MG/DL (9-23); CALCIUM LEVEL 9.3 MG/DL (8.5-10.1); CARBON DIOXIDE LEVEL 26 MMOL/L (20-31); CHLORIDE LEVEL 105 MMOL/L (98-107); CREATININE FOR GFR 0.72 MG/DL (0.55-1.30); GLOMERULAR FILTRATION RATE > 60.0 (>60); GLUCOSE, FASTING 86 MG/DL (60-100); POTASSIUM SERUM 4.1 MMOL/L (3.5-5.1); SODIUM LEVEL 138 MMOL/L (136-145); TOTAL PROTEIN 6.1 G/DL (5.7-8.2)
[2023-06-23] MEDS ORDERED: ACETAMINOPHEN 500 MG TAB PO ONE (20:55)
[2023-06-23 23:55] LABS: GC DNA AMPLIFICATION NEGATIVE (NEGATIVE)
== END 2023-06-24 00:20 | disposition home or self-care (01) ==
LOC: M ED 19:04
DX: O26.892 Other specified pregnancy related conditions, second trimester (principal); R10.2 Pelvic and perineal pain; Z3A.15 15 weeks gestation of pregnancy; Z91.013 Allergy to seafood; Z91.048 Other nonmedicinal substance allergy status

== ENCOUNTER → 2023-06-24 | Outpatient (REF) | payer OTHER | LOC: M PLALAB 11:07 | PROVIDERS: ATTEND Advanced Practice Midwife | DX: Z53.9 Procedure and treatment not carried out, unspecified reason (principal) ==

== ENCOUNTER → 2023-06-24 | Outpatient (CLI) | payer OTHER ==
[2023-06-24 14:10] LABS: HEMATOCRIT 36.6 % (36.0-47.0); HEMOGLOBIN 12.5 g/dl (12.0-15.5); MEAN CORPUSCULAR HEMOGLOBIN 30.3 pg (27.0-33.0); MEAN CORPUSCULAR HGB CONC 34.2 g/dl (32.0-36.5); MEAN CORPUSCULAR VOLUME 88.6 fl (80.0-96.0); PLATELET COUNT, AUTOMATED 221 10^3/uL (150-450); RED BLOOD COUNT 4.13 10^6/uL (4.00-5.40); WHITE BLOOD COUNT 11.3 10^3/uL (4.0-10.0)
[2023-06-24 15:04] LABS: HIV 1&2 SCREEN NEGATIVE (NEGATIVE)
[2023-06-24 15:12] LABS: HEPATITIS C VIRUS ABY INDEX 0.12 INDEX (<0.8)
[2023-06-24 15:30] LABS: GC DNA AMPLIFICATION NEGATIVE (NEGATIVE)
== END ==
LOC: M PLALAB 11:41
PROVIDERS: ATTEND Advanced Practice Midwife
DX: Z34.92 Encounter for supervision of normal pregnancy, unspecified, second trimester (principal)

== ENCOUNTER → 2023-08-23 | Outpatient (CLI) | payer OTHER | LOC: M WHC 08:02 | PROVIDERS: ATTEND Advanced Practice Midwife | DX: Z34.92 Encounter for supervision of normal pregnancy, unspecified, second trimester (principal); Z3A.23 23 weeks gestation of pregnancy ==

== ENCOUNTER → 2023-09-23 | Outpatient (CLI) | payer OTHER ==
[2023-09-23 17:47] LABS: HEMATOCRIT 33.8 % (36.0-47.0); MEAN CORPUSCULAR HEMOGLOBIN 30.7 pg (27.0-33.0); MEAN CORPUSCULAR HGB CONC 32.5 g/dl (32.0-36.5); MEAN CORPUSCULAR VOLUME 94.4 fl (80.0-96.0); PLATELET COUNT, AUTOMATED 221 10^3/uL (150-450); RED BLOOD COUNT 3.58 10^6/uL (4.00-5.40); WHITE BLOOD COUNT 12.9 10^3/uL (4.0-10.0)
== END ==
LOC: M PLALAB 14:19
PROVIDERS: ATTEND Advanced Practice Midwife
DX: Z34.92 Encounter for supervision of normal pregnancy, unspecified, second trimester (principal)

== ENCOUNTER → 2023-10-07 | Outpatient (CLI) | payer OTHER | LOC: M WHC 07:31 | PROVIDERS: ATTEND Advanced Practice Midwife | DX: Z34.92 Encounter for supervision of normal pregnancy, unspecified, second trimester (principal) ==

== ENCOUNTER → 2023-11-18 | Outpatient (REF) | payer OTHER | LOC: M PLALAB 11:03 | PROVIDERS: ATTEND Advanced Practice Midwife | DX: Z34.93 Encounter for supervision of normal pregnancy, unspecified, third trimester (principal); Z3A.36 36 weeks gestation of pregnancy ==

== ENCOUNTER 2023-11-27 08:36 | Inpatient (IN) | payer OTHER ==
[2023-11-27] VITALS (10 sets, daily range): BP systolic 91–134; BP diastolic 55–83; TEMP 97; O2SAT 97–99
[~2023-11-27] VITALS: Ht 162.6 cm; Wt 107.4 kg
[2023-11-27] MEDS ORDERED: HOME MED LIST COMPLETE! XX SCH (09:00)
[2023-11-27 12:11] LABS: HEMOGLOBIN 11.5 g/dl (12.0-15.5); MEAN CORPUSCULAR HEMOGLOBIN 29.7 pg (27.0-33.0); MEAN CORPUSCULAR HGB CONC 32.9 g/dl (32.0-36.5); MEAN CORPUSCULAR VOLUME 90.4 fl (80.0-96.0); PLATELET COUNT, AUTOMATED 227 10^3/uL (150-450); RED BLOOD COUNT 3.87 10^6/uL (4.00-5.40); WHITE BLOOD COUNT 13.9 10^3/uL (4.0-10.0)
[2023-11-27] MEDS: ceFAZolin SOD 2 GM in IV 1 EA IV ONE (12:24)
[2023-11-27] MEDS: LACTATED RINGER'S 1000 ML IV STA (12:24)
[2023-11-27] MEDS: AZITHROMYCIN INJ 500 MG, VIAL MATE ADAPTER 1 EACH in NS 250 ML IV ONE (12:24)
[2023-11-27] MEDS: BICITRA 30ML SOLN UDC PO ONE (12:24)
[2023-11-27] MEDS ORDERED: ACETAMINOPHEN 1000MG 100ML IV BAG As Ordered ONE (13:50)
[2023-11-27] MEDS ORDERED: MORPHINE PRES-FREE INJ 10 MG/10 ML VIAL As Ordered ONE (13:50)
[2023-11-27] MEDS ORDERED: KETOROLAC 60MG 2ML VIAL As Ordered ONE (13:50)
[2023-11-27] MEDS ORDERED: ONDANSETRON 4MG 2ML VIAL As Ordered ONE (13:50)
[2023-11-27 13:58] LABS: CORD GAS ABE A -2.1; CORD GAS HCO3 A 26.2 MMOL/L; CORD GAS O2 SAT A 51.5 %; CORD GAS PCO2 A 59.6 mmHg; CORD GAS PH A 7.261 UNITS; CORD GAS PO2 A 22.6 mmHg; CORD GAS SBC A 21.6 MMOL/L
[2023-11-27 14:00] LABS: CORD GAS HCO3 V 23.8 MMOL/L; CORD GAS O2 SAT V 93.3 %; CORD GAS PCO2 V 44.2 mmHg; CORD GAS PH V 7.349 UNITS; CORD GAS SBC V 22.7 MMOL/L; CORD GAS TCO2 V 25.2 MMOL/L
[2023-11-27] MEDS ORDERED: METOCLOPRAMIDE INJ 10MG/2ML VIAL As Ordered ONE (14:03)
[2023-11-27] MEDS ORDERED: OXYTOCIN 30UNITS IN 0.9% NaCl 500ML IV BAG As Ordered ONE (14:03)
[2023-11-27] MEDS ORDERED: ePHEDrine SULFATE 25 MG/5 ML(5MG/ML) SYRINGE As Ordered ONE (14:06)
[2023-11-27] MEDS ORDERED: PHENYLephrine 500MCG 5ML (100MCG/ML) SYRINGE As Ordered ONE (14:06)
[2023-11-27] MEDS ORDERED: ACETAMINOPHEN TAB 650MG DOSE (2X325MG) PO PRN (14:20)
[2023-11-27] MEDS ORDERED: RHOGAM 300MCG (1500IU) INJ IM SCH (14:20)
[2023-11-27] MEDS ORDERED: ePHEDrine INJ 50MG/ML 1ML VIAL As Ordered ONE (14:35)
[2023-11-27] MEDS ORDERED: ONDANSETRON 4MG 2ML VIAL IV PRN ×2 (14:45)
[2023-11-27] MEDS ORDERED: oxyCODONE 5MG TAB PO PRN (14:45)
[2023-11-27] MEDS: SLF 3 ML SYR IV SCH (14:45)
[2023-11-27] MEDS ORDERED: **NOTE PATIENT COMMENT** MISC XX SCH (14:45)
[2023-11-27] MEDS ORDERED: fentaNYL 100 MCG/2 ML INJECTION IV PRN (14:45)
[2023-11-27] MEDS ORDERED: diphenhydrAMINE 50MG/ML VIAL IV PRN (14:45)
[2023-11-27] MEDS ORDERED: METOCLOPRAMIDE INJ 10MG/2ML VIAL IV PRN (14:45)
[2023-11-27] MEDS ORDERED: NALOXONE INJ 0.4MG/1ML VIAL IV PRN ×2 (14:45)
[2023-11-27] MEDS: OXYTOCIN DRIP 30 UNITS in IV 1 EA IV SCH (14:49)
[2023-11-27] MEDS: LR 1,000 ML IV SCH ×2 (14:58→19:40)
[2023-11-27] MEDS: ePHEDrine SULFATE 25 MG/5 ML(5MG/ML) SYRINGE IV PRN (15:48)
[2023-11-27] MEDS: KETOROLAC 30 MG/ML 1ML VIAL IV SCH (19:41)
[2023-11-28 02:00] VITALS: BP 82/51; O2SAT 98
[2023-11-28] MEDS: SIMETHICONE 80MG CHEW TAB PO PRN (05:10)
[2023-11-28 06:00] VITALS: BP 94/53; O2SAT 98
[2023-11-28 06:26] LABS: HEMATOCRIT 29.6 % (36.0-47.0); HEMOGLOBIN 9.7 g/dl (12.0-15.5); MEAN CORPUSCULAR HEMOGLOBIN 29.7 pg (27.0-33.0); MEAN CORPUSCULAR HGB CONC 32.8 g/dl (32.0-36.5); MEAN CORPUSCULAR VOLUME 90.5 fl (80.0-96.0); PLATELET COUNT, AUTOMATED 229 10^3/uL (150-450); RED BLOOD COUNT 3.27 10^6/uL (4.00-5.40)
[2023-11-28] MEDS: PRENATAL VITAMINS CHEWABLE TABLET PO SCH (07:53)
[2023-11-28 10:00] VITALS: BP 89/53; O2SAT 97
[2023-11-28 14:00] VITALS: BP 110/51; O2SAT 96
[2023-11-28] MEDS: IBUPROFEN 800 MG TAB PO SCH (15:03)
[2023-11-28 18:00] VITALS: BP 104/57; O2SAT 98
[2023-11-28] MEDS: PERCOCET 5MG/325MG TAB PO PRN (20:34)
[2023-11-28 22:00] VITALS: BP 103/52; O2SAT 98
[2023-11-29 02:00] VITALS: BP 90/52; O2SAT 97
[2023-11-29 06:00] VITALS: BP 98/55; O2SAT 99
[2023-11-29] MEDS: MEASLES,MUMPS,RUBELLA VACCINE INJ (MMR-II) SC.IMMUN ONE (08:24)
[2023-11-29] MEDS ORDERED: IBUP80TA PO (13:51)
[2023-11-29] MEDS ORDERED: PERCOCET PO (13:51)
[2023-11-29] MEDS ORDERED: COLA100C5 PO (13:51)
== END 2023-11-29 14:40 | disposition home or self-care (01) | DRG 540 ==
LOC: M LDO 08:36 → M LDI 11:39 → M OBS 14:00
PROVIDERS: ADMIT Obstetrics & Gynecology; ATTEND Obstetrics & Gynecology
PROC: 10D00Z1 Extraction of Products of Conception, Low, Open Approach (ICD-10-PCS; principal; 2023-11-27 12:05)
DX: O32.1XX0 Maternal care for breech presentation, not applicable or unspecified (principal); Z91.013 Allergy to seafood; Z3A.37 37 weeks gestation of pregnancy; Z37.0 Single live birth

== ENCOUNTER 2024-07-03 15:11 | Emergency (ER) | payer OTHER ==
[~2024-07-03] VITALS: Ht 162.6 cm; Wt 104.7 kg
[~2024-07-03 15:11] MED LIST changes: +COLA100C5 PO; +IBUP80TA PO; +ONDA-282 PO; -ONDA4TAB6 PO; +PERCOCET PO
[2024-07-04 00:32] VITALS: BP 117/69; TEMP 99.9; O2SAT 99
[2024-07-04 00:58] LABS: BASO % 0.2 % (0.0-1.0); EOS % 0.2 % (0.0-3.0); HEMOGLOBIN 12.6 g/dl (12.0-15.5); LYMPH # 1.1 10^3/uL (1.5-5.0); LYMPH % 18.3 % (24.0-44.0); MEAN CORPUSCULAR HEMOGLOBIN 27.9 pg (27.0-33.0); MEAN CORPUSCULAR HGB CONC 33.2 g/dl (32.0-36.5); MEAN CORPUSCULAR VOLUME 84.3 fl (80.0-96.0); MONO # 0.9 10^3/uL (0.0-0.8); MONO % 14.1 % (2.0-8.0); NEUTROPHILS # 4.1 10^3/uL (1.5-8.5); PLATELET COUNT, AUTOMATED 227 10^3/uL (150-450); RED BLOOD COUNT 4.51 10^6/uL (4.00-5.40); WHITE BLOOD COUNT 6.2 10^3/uL (4.0-10.0)
[2024-07-04 01:29] LABS: BLOOD UREA NITROGEN 8 MG/DL (9-23); CALCIUM LEVEL 8.9 MG/DL (8.5-10.1); CARBON DIOXIDE LEVEL 24 MMOL/L (20-31); CHLORIDE LEVEL 105 MMOL/L (98-107); CREATININE FOR GFR 0.69 MG/DL (0.55-1.30); GLOMERULAR FILTRATION RATE > 60.0 (>60); GLUCOSE, FASTING 86 MG/DL (60-100); POTASSIUM SERUM 3.9 MMOL/L (3.5-5.1); SODIUM LEVEL 134 MMOL/L (136-145)
[2024-07-04] MEDS: ONDANSETRON 4MG 2ML VIAL IV ONE (03:47)
[2024-07-04] MEDS: NS 1,000 ML IV ONE (03:49)
[2024-07-04] MEDS: ACETAMINOPHEN *IV* 1,000 MG in IV 1 EA IV ONE (03:49)
[2024-07-04] MEDS ORDERED: ONDA-282 PO (04:22)
== END 2024-07-04 05:49 | disposition home or self-care (01) ==
LOC: M ED 15:11
DX: O99.511 Diseases of the respiratory system complicating pregnancy, first trimester (principal); J06.9 Acute upper respiratory infection, unspecified; K21.9 Gastro-esophageal reflux disease without esophagitis; Z79.83 Long term (current) use of bisphosphonates; Z3A.08 8 weeks gestation of pregnancy
CPT/HCPCS: 76801; 80048; 84702; 85025; 93976; 96365; 96366; 96375; 99284; J0131; J2405

== ENCOUNTER → 2024-07-27 | Outpatient (CLI) | payer OTHER ==
[2024-07-27 12:25] LABS: HEMATOCRIT 35.6 % (36.0-47.0); HEMOGLOBIN 11.7 g/dl (12.0-15.5); MEAN CORPUSCULAR HEMOGLOBIN 28.5 pg (27.0-33.0); MEAN CORPUSCULAR HGB CONC 32.9 g/dl (32.0-36.5); MEAN CORPUSCULAR VOLUME 86.8 fl (80.0-96.0); PLATELET COUNT, AUTOMATED 226 10^3/uL (150-450); WHITE BLOOD COUNT 7.1 10^3/uL (4.0-10.0)
[2024-07-27 13:20] LABS: HIV 1&2 SCREEN NEGATIVE (NEGATIVE)
[2024-07-27 13:28] LABS: HEPATITIS C VIRUS ABY INDEX < 0.02 INDEX (<0.8)
[2024-07-27 13:44] LABS: GC DNA AMPLIFICATION NEGATIVE (NEGATIVE)
== END ==
LOC: M PLALAB 08:29
PROVIDERS: ATTEND Specialist
DX: Z34.80 Encounter for supervision of other normal pregnancy, unspecified trimester (principal)

== ENCOUNTER 2024-11-07 21:48 | Emergency (ER) | payer OTHER ==
[~2024-11-07] VITALS: Ht 162.6 cm; Wt 101.5 kg
[2024-11-07 21:51] VITALS: BP 108/64; TEMP 101.7; O2SAT 95
== END 2024-11-08 02:11 | disposition left against medical advice (07) ==
LOC: M ED 21:48
DX: Z53.21 Procedure and treatment not carried out due to patient leaving prior to being seen by health care provider (principal)

== ENCOUNTER → 2024-11-09 | Outpatient (CLI) | payer OTHER | LOC: M WHC 07:38 | PROVIDERS: ATTEND Advanced Practice Midwife | DX: Z34.82 Encounter for supervision of other normal pregnancy, second trimester (principal) ==

== ENCOUNTER → 2024-11-29 | Outpatient (CLI) | payer OTHER ==
[2024-11-29 15:23] LABS: HEMOGLOBIN 11.2 g/dl (12.0-15.5); MEAN CORPUSCULAR HEMOGLOBIN 29.9 pg (27.0-33.0); MEAN CORPUSCULAR HGB CONC 32.9 g/dl (32.0-36.5); MEAN CORPUSCULAR VOLUME 90.9 fl (80.0-96.0); PLATELET COUNT, AUTOMATED 242 10^3/uL (150-450); RED BLOOD COUNT 3.74 10^6/uL (4.00-5.40); WHITE BLOOD COUNT 10.8 10^3/uL (4.0-10.0)
[2024-11-29 15:25] LABS: GLUCOSE CHALLENGE TEST 1 HOUR 86 MG/DL (LESS THAN 140)
[2024-11-29 16:00] LABS: HIV 1&2 SCREEN NEGATIVE (NEGATIVE)
[2024-11-29 21:36] LABS: GC DNA AMPLIFICATION NEGATIVE (NEGATIVE)
== END ==
LOC: M PLALAB 11:01
PROVIDERS: ATTEND Obstetrics & Gynecology
DX: Z34.82 Encounter for supervision of other normal pregnancy, second trimester (principal); Z3A.00 Weeks of gestation of pregnancy not specified

== ENCOUNTER 2025-01-12 20:46 | Outpatient (CLI) | payer OTHER ==
[~2025-01-12] VITALS: Ht 162.6 cm; Wt 107.3 kg
[2025-01-12 20:57] VITALS: BP 104/58
[2025-01-12 22:59] VITALS: BP 102/67
== END 2025-01-12 23:05 | disposition home or self-care (01) ==
LOC: M LDO 20:46
PROVIDERS: ATTEND Obstetrics & Gynecology
DX: O26.893 Other specified pregnancy related conditions, third trimester (principal); O34.211 Maternal care for low transverse scar from previous cesarean delivery; O26.23 Pregnancy care for patient with recurrent pregnancy loss, third trimester; N89.8 Other specified noninflammatory disorders of vagina; Z3A.35 35 weeks gestation of pregnancy
CPT/HCPCS: 59025; G0463

== ENCOUNTER → 2025-01-15 | Outpatient (REF) | payer OTHER | LOC: M PLALAB 09:03 | PROVIDERS: ATTEND Nurse Practitioner Family | DX: O34.211 Maternal care for low transverse scar from previous cesarean delivery (principal); O26.23 Pregnancy care for patient with recurrent pregnancy loss, third trimester; O99.213 Obesity complicating pregnancy, third trimester; E66.09 Other obesity due to excess calories; Z3A.36 36 weeks gestation of pregnancy ==

== ENCOUNTER 2025-01-25 11:14 | Outpatient (CLI) | payer OTHER ==
[~2025-01-25] VITALS: Ht 162.6 cm; Wt 107.2 kg
[2025-01-25] MEDS ORDERED: FAMO10TA50 PO (11:48)
[2025-01-25] MEDS ORDERED: ACET-907 PO (11:48)
[2025-01-25] MEDS ORDERED: HOME MED LIST COMPLETE! XX SCH (11:50)
[2025-01-25 11:59] VITALS: O2SAT 96
[2025-01-25 12:01] VITALS: BP 95/64; O2SAT 97
[2025-01-25 13:56] VITALS: BP 111/65
[2025-01-25 14:58] VITALS: O2SAT 98
== END 2025-01-25 15:15 | disposition home or self-care (01) ==
LOC: M LDO 11:14
PROVIDERS: ATTEND Advanced Practice Midwife
DX: O47.1 False labor at or after 37 completed weeks of gestation (principal); O34.219 Maternal care for unspecified type scar from previous cesarean delivery; O26.23 Pregnancy care for patient with recurrent pregnancy loss, third trimester; O99.213 Obesity complicating pregnancy, third trimester; E66.09 Other obesity due to excess calories; Z3A.37 37 weeks gestation of pregnancy
CPT/HCPCS: 59025; G0463

== ENCOUNTER 2025-01-26 11:20 | Outpatient (CLI) | payer OTHER ==
[~2025-01-26] VITALS: Ht 162.6 cm; Wt 107.1 kg
[~2025-01-26 11:20] MED LIST changes: +ACET-907 PO; +FAMO10TA50 PO
[2025-01-26 11:41] VITALS: BP 121/63
[2025-01-26 13:10] LABS: KETONE, URINE AUTO RFX NEGATIVE (NEGATIVE); NITRITE, URINE AUTO RFX NEGATIVE (NEGATIVE); RBC, URINE AUTO RFX 0 /HPF (0-3); SQUAM EPITHELIAL CELL UR AURFX 1 /HPF (0-6); WBC, URINE AUTO RFX 1 /HPF (0-3)
[2025-01-26 13:11] LABS: LEUKOCYTE ESTERASE UR AUTO RFX 2+ (NEGATIVE)
== END 2025-01-26 14:40 | disposition home or self-care (01) ==
LOC: M LDO 11:20
PROVIDERS: ATTEND Obstetrics & Gynecology
DX: O26.893 Other specified pregnancy related conditions, third trimester (principal); R25.2 Cramp and spasm; Z3A.37 37 weeks gestation of pregnancy; O34.219 Maternal care for unspecified type scar from previous cesarean delivery; Z91.013 Allergy to seafood
CPT/HCPCS: 59025; 81001; 87086; G0463

== ENCOUNTER 2025-02-04 08:27 | Inpatient (IN) | payer OTHER ==
[~2025-02-04] VITALS: Ht 162.6 cm; Wt 107.6 kg
[2025-02-04] VITALS (9 sets, daily range): BP systolic 98–132; BP diastolic 54–83; TEMP 98; O2SAT 96–98
[2025-02-04] MEDS ORDERED: PEPC1TAB5 PO (08:50)
[2025-02-04] MEDS ORDERED: HOME MED LIST COMPLETE! XX SCH (08:50)
[2025-02-04] MEDS ORDERED: CARBOPROST TROMETHAMINE 250 MCG/ML AMP IM PRN (11:30)
[2025-02-04] MEDS ORDERED: TRANEXAMIC ACID INJection 1,000 MG in NS 100 ML IV PRN (11:30)
[2025-02-04] MEDS ORDERED: OXYTOCIN DRIP 30 UNITS in IV 1 EA IV PRN ×3 (11:30)
[2025-02-04] MEDS ORDERED: METHYLERGONOVINE MALEATE 0.2MG/ML 1ML VIAL IM PRN (11:30)
[2025-02-04] MEDS ORDERED: OXYTOCIN INJ 10UNITS/ML 1ML VIAL IM PRN (11:30)
[2025-02-04 12:58] LABS: BASO % 0.2 % (0.0-1.0); EOS % 0.3 % (0.0-3.0); HEMATOCRIT 32.6 % (36.0-47.0); HEMOGLOBIN 10.4 g/dl (12.0-15.5); LYMPH # 2.7 10^3/uL (1.5-5.0); LYMPH % 17.5 % (24.0-44.0); MEAN CORPUSCULAR HEMOGLOBIN 27.4 pg (27.0-33.0); MEAN CORPUSCULAR HGB CONC 31.9 g/dl (32.0-36.5); MONO # 1.2 10^3/uL (0.0-0.8); MONO % 7.7 % (2.0-8.0); NEUTROPHILS # 11.2 10^3/uL (1.5-8.5); NEUTROPHILS % 73.7 % (36.0-66.0); PLATELET COUNT, AUTOMATED 242 10^3/uL (150-450); RED BLOOD COUNT 3.79 10^6/uL (4.00-5.40); WHITE BLOOD COUNT 15.2 10^3/uL (4.0-10.0)
[2025-02-04] MEDS ORDERED: OXYTOCIN INJ 10UNITS/ML 1ML VIAL As Ordered ONE (13:57)
[2025-02-04] MEDS ORDERED: PHENYLephrine 500MCG 5ML (100MCG/ML) SYRINGE As Ordered ONE (13:58)
[2025-02-04] MEDS ORDERED: METOCLOPRAMIDE INJ 10MG/2ML VIAL As Ordered ONE (13:58)
[2025-02-04] MEDS ORDERED: KETOROLAC 30 MG/ML 1ML VIAL As Ordered ONE (13:58)
[2025-02-04] MEDS ORDERED: ONDANSETRON 4MG 2ML VIAL As Ordered ONE (13:58)
[2025-02-04 13:59] LABS: HIV 1&2 SCREEN NEGATIVE (NEGATIVE)
[2025-02-04] MEDS: ceFAZolin SODIUM 2 GM in DEXTROSE 5% (D5W) ADV/MINI-BAG 50 ML IV ONE (14:00)
[2025-02-04] MEDS: BICITRA 30ML SOLN UDC PO ONE (14:00)
[2025-02-04] MEDS ORDERED: MORPHINE PRES-FREE INJ 10 MG/10 ML VIAL As Ordered ONE (14:01)
[2025-02-04] MEDS: LR 1,000 ML IV ONE (14:06)
[2025-02-04 14:07] LABS: HEPATITIS C VIRUS ABY INDEX 0.03 INDEX (<0.8)
[2025-02-04] MEDS: LR 1,000 ML IV SCH (14:07)
[2025-02-04] MEDS ORDERED: ePHEDrine SULFATE 25 MG/5 ML(5MG/ML) SYRINGE As Ordered ONE (14:49)
[2025-02-04] MEDS ORDERED: **NOTE PATIENT COMMENT** MISC XX SCH ×2 (15:00)
[2025-02-04] MEDS ORDERED: ONDANSETRON 4MG 2ML VIAL IV PRN (15:00)
[2025-02-04] MEDS ORDERED: METOCLOPRAMIDE INJ 10MG/2ML VIAL IV PRN ×2 (15:00)
[2025-02-04] MEDS ORDERED: diphenhydrAMINE 50MG/ML VIAL IV PRN ×2 (15:00)
[2025-02-04] MEDS ORDERED: NALOXONE INJ 0.4MG/1ML VIAL IV PRN ×4 (15:00)
[2025-02-04] MEDS ORDERED: SLF 3 ML SYR IV SCH ×2 (15:00)
[2025-02-04] MEDS ORDERED: TRANEXAMIC ACID 100 MG/ML 10ML VIAL As Ordered ONE (15:07)
[2025-02-04 15:11] LABS: CORD GAS ABE A -4.4; CORD GAS ABE V -3.7; CORD GAS HCO3 A 24.9 MMOL/L; CORD GAS HCO3 V 23.3 MMOL/L; CORD GAS O2 SAT A 28.3 %; CORD GAS O2 SAT V 39.9 %; CORD GAS PCO2 V 49.3 mmHg; CORD GAS PH A 7.201 UNITS; CORD GAS PH V 7.292 UNITS; CORD GAS PO2 A 16.9 mmHg; CORD GAS PO2 V 19.5 mmHg; CORD GAS SBC A 19.3 MMOL/L; CORD GAS SBC V 20.1 MMOL/L; CORD GAS TCO2 A 26.9 MMOL/L; CORD GAS TCO2 V 24.8 MMOL/L
[2025-02-04] MEDS ORDERED: ACETAMINOPHEN 1000MG/100ML IV BAG As Ordered ONE (15:35)
[2025-02-04] MEDS ORDERED: RHOGAM 300MCG (1500IU) INJ IM SCH (15:40)
[2025-02-04] MEDS ORDERED: SIMETHICONE 80MG CHEW TAB PO PRN (15:40)
[2025-02-04] MEDS ORDERED: MOM 30ML SUSPENSION UDC PO PRN (15:40)
[2025-02-04] MEDS: ACETAMINOPHEN 500 MG TAB PO PRN (20:32)
[2025-02-04] MEDS: KETOROLAC 30 MG/ML 1ML VIAL IV SCH (21:52)
[2025-02-04] MEDS: DOCUSATE SODIUM 100MG CAPSULE PO SCH (21:52)
[2025-02-05] VITALS (9 sets, daily range): BP systolic 91–118; BP diastolic 50–68; O2SAT 97–98
[2025-02-05 06:18] LABS: HEMOGLOBIN 9.3 g/dl (12.0-15.5); MEAN CORPUSCULAR HEMOGLOBIN 27.7 pg (27.0-33.0); MEAN CORPUSCULAR HGB CONC 32.1 g/dl (32.0-36.5); MEAN CORPUSCULAR VOLUME 86.3 fl (80.0-96.0); PLATELET COUNT, AUTOMATED 220 10^3/uL (150-450); RED BLOOD COUNT 3.36 10^6/uL (4.00-5.40); WHITE BLOOD COUNT 16.1 10^3/uL (4.0-10.0)
[2025-02-05] MEDS: PRENATAL VITAMINS CHEWABLE TABLET PO SCH (09:38)
[2025-02-05] MEDS: FERROUS SULFATE 325MG TAB PO SCH (09:38)
[2025-02-05] MEDS: oxyCODONE 5MG TAB PO PRN (17:21)
[2025-02-05] MEDS: IBUPROFEN 800 MG TAB PO SCH (17:44)
[2025-02-06 01:54] VITALS: BP 112/72; O2SAT 98
[2025-02-06 06:02] VITALS: BP 110/63; O2SAT 98
[2025-02-06] MEDS: oxyCODONE 5MG TAB PO PRN (08:52)
[2025-02-06] MEDS ORDERED: MEASLES,MUMPS,RUBELLA VACCINE INJ (MMR-II) SC.IMMUN ONE (09:00)
[2025-02-06 10:01] VITALS: BP 117/73; O2SAT 100
[2025-02-06 14:00] VITALS: BP 115/63; O2SAT 99
== END 2025-02-06 17:00 | disposition home or self-care (01) | DRG 540 ==
LOC: M LDO 08:27 → M LDI 09:00 → M OBS 17:26
PROVIDERS: ADMIT Advanced Practice Midwife; ATTEND Advanced Practice Midwife
PROC: 0UB70ZZ Excision of Bilateral Fallopian Tubes, Open Approach (ICD-10-PCS; 2025-02-04)
PROC: 10D00Z1 Extraction of Products of Conception, Low, Open Approach (ICD-10-PCS; principal; 2025-02-04 14:00)
DX: O34.211 Maternal care for low transverse scar from previous cesarean delivery (principal); Z37.0 Single live birth; Z3A.38 38 weeks gestation of pregnancy; Z91.013 Allergy to seafood; E66.9 Obesity, unspecified; O99.214 Obesity complicating childbirth; Z68.41 Body mass index [BMI] 40.0-44.9, adult; Z30.2 Encounter for sterilization